=== PATIENT | male | born 1940 | race Asian ===

== ENCOUNTER 2017-03-15 08:56 | Inpatient (IN) | payer MEDICARE, MEDICAID ==
[~2017-03-15] VITALS: Ht 162.6 cm; Wt 64.0 kg
[2017-03-15] MEDS ORDERED: LOSARTAN POTASS50 MG ORAL (09:05)
[2017-03-15] MEDS ORDERED: GLIPIZIDE5 MG ORAL (09:05)
[2017-03-15] MEDS ORDERED: METFORMIN HCL1000 M1 ORAL (09:05)
[2017-03-15] MEDS ORDERED: METOPROLOL TAR100 MG ORAL (09:05)
[2017-03-15] MEDS ORDERED: Sodium Chloride 500ML 500 ML IV ONE (09:08)
--- NOTE | 2017-03-15 09:29 | Emergency Room Report ---
History of Present Illness General Chief Complaint: Dizziness Source: Patient (CHRIS VANCE D.O.) Present Illness HPI Patient presents with complaints of dizziness He reports that when he sits up he feels the symptoms of spinning Patient on Thursday also noted that his blood pressure was elevated this morning his blood pressure was 195 systolic at home With the ongoing positional vertigo Patient was concerning came to the ER He has had a cough for the past week as well denies any chest pain Denies any visual changes he describes a 2/10 head pressure as well Denies any neck pain Denies any focal weakness (CHRIS VANCE D.O.) Allergies: Coded Allergies: No Known Allergies (Unverified , 03/15/17) Patient History Past Medical History: see triage record Pertinent Family History: none Reviewed Nursing Documentation: PMH: Agreed, PSxH: Agreed (CHRIS VANCE D.O.) Nursing Documentation-PMH Hx Hypertension: Yes Hx Diabetes: Yes (CHRIS VANCE D.O.) Review of Systems All Other Systems: negative except mentioned in HPI (CHRIS VANCE D.O.) Physical Exam Vital Signs Date Time Temp Pulse Resp B/P (MAP) Pulse Ox O2 Delivery O2 Flow Rate FiO2 03/15/17 08:57 97.7 68 18 150/82 99 Room Air Sp02 EP Interpretation: reviewed, normal General Appearance: well appearing, no apparent distress Head: normocephalic, atraumatic Eyes: bilateral eye PERRL, bilateral eye EOMI ENT: hearing grossly normal, normal pharynx, TMs + canals normal, uvula midline Neck: full range of motion, supple, no meningismus, no bony tend Respiratory: lungs clear, normal breath sounds, no rhonchi, no respiratory distress, no retraction, no accessory muscle use Cardiovascular #1: normal peripheral pulses, regular rate, rhythm, no edema, no gallop, no JVD, no murmur Gastrointestinal: normal bowel sounds, non tender, soft, no mass, no organomegaly, non-distended, no guarding, no hernia, no pulsatile mass, no rebound Genitourinary: no CVA tenderness Musculoskeletal: normal inspection Neurologic: oriented x3, responsive, 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, motor strength/ tone normal, sensory intact Psychiatric: mood/affect normal Skin: normal color, no rash, warm/dry, palpation normal Lymphatic: normal inspection, no adenopathy (CHRIS VANCE D.O.) Medical Decision Making Diagnostic Impression: Primary Impression: Hyponatremia Additional Impression: Dizziness ER Course Patient is a fairly complex patient with multiple differential to consideration including but not limited to cardiac cardiopulmonary, metabolic, infectious and vascular emergencies Patient has had fairly elevated blood pressure at home at this time appears to be under control Patient's sodium is low Given his symptomatically presentation and evaluation he will require inpatient care Labs Test 03/15/17 09:20 03/15/17 09:37 03/15/17 17:01 03/16/17 06:10 White Blood Count 10.1 K/UL (4.8-10.8) 7.3 K/UL (4.8-10.8) Red Blood Count 4.97 M/UL (4.70-6.10) 4.45 M/UL (4.70-6.10) Hemoglobin 15.4 G/DL (14.2-18.0) 14.4 G/DL (14.2-18.0) Hematocrit 45.5 % (42.0-52.0) 41.0 % (42.0-52.0) Mean Corpuscular Volume 92 FL (80-99) 92 FL (80-99) Mean Corpuscular Hemoglobin 30.9 PG (27.0-31.0) 32.3 PG (27.0-31.0) Mean Corpuscular Hemoglobin Concent 33.7 G/DL (32.0-36.0) 35.1 G/DL (32.0-36.0) Red Cell Distribution Width 10.8 % (11.6-14.8) 10.9 % (11.6-14.8) Platelet Count 185 K/UL (150-450) 159 K/UL (150-450) Mean Platelet Volume 6.3 FL (6.5-10.1) 6.8 FL (6.5-10.1) Neutrophils (%) (Auto) 64.9 % (45.0-75.0) % (45.0-75.0) Lymphocytes (%) (Auto) 27.4 % (20.0-45.0) % (20.0-45.0) Monocytes (%) (Auto) 6.6 % (1.0-10.0) % (1.0-10.0) Eosinophils (%) (Auto) 0.5 % (0.0-3.0) % (0.0-3.0) Basophils (%) (Auto) 0.6 % (0.0-2.0) % (0.0-2.0) Sodium Level 129 MMOL/L (136-145) 130 MMOL/L (136-145) Potassium Level 4.5 MMOL/L (3.5-5.1) 4.3 MMOL/L (3.5-5.1) Chloride Level 95 MMOL/L (98-107) 98 MMOL/L (98-107) Carbon Dioxide Level 27 MMOL/L (21-32) 28 MMOL/L (21-32) Anion Gap 7 mmol/L (5-15) 4 mmol/L (5-15) Blood Urea Nitrogen 12 mg/dL (7-18) 11 mg/dL (7-18) Creatinine 1.3 MG/DL (0.55-1.30) 1.1 MG/DL (0.55-1.30) Estimat Glomerular Filtration Rate mL/min (>60) mL/min (>60) Glucose Level 149 MG/DL (74-106) 96 MG/DL (74-106) Osmolality 276 mOsm/kg (297-317) Uric Acid 3.7 MG/DL (2.6-7.2) Calcium Level 8.6 MG/DL (8.5-10.1) 8.3 MG/DL (8.5-10.1) Total Bilirubin 1.1 MG/DL (0.2-1.0) 1.1 MG/DL (0.2-1.0) Direct Bilirubin 0.3 MG/DL (0.0-0.3) 0.3 MG/DL (0.0-0.3) Aspartate Amino Transf (AST/SGOT) 24 U/L (15-37) 23 U/L (15-37) Alanine Aminotransferase (ALT/SGPT) 31 U/L (12-78) 30 U/L (12-78) Alkaline Phosphatase 71 U/L (46-116) 61 U/L (46-116) Total Creatine Kinase 98 U/L (26-308) Creatine Kinase MB 2.2 NG/ML (0.0-3.6) Creatine Kinase MB Relative Index 2.2 Troponin I 0.000 ng/mL (0.000-0.056) Total Protein 7.0 G/DL (6.4-8.2) 6.5 G/DL (6.4-8.2) Albumin 3.6 G/DL (3.4-5.0) 3.0 G/DL (3.4-5.0) Globulin 3.4 g/dL 3.5 g/dL Albumin/Globulin Ratio 1.1 (1.0-2.7) 0.9 (1.0-2.7) Lipase 115 U/L (73-393) Thyroid Stimulating Hormone (TSH) 4.589 uiU/mL (0.358-3.740) Free Thyroxine 1.08 NG/DL (0.76-1.46) Free Triiodothyronine 2.2 pg/mL (2.3-4.2) Urine Color Pale yellow Rosario Urine Appearance Clear Clear Urine pH 6 (4.5-8.0) 6.5 (4.5-8.0) Urine Specific [place] 1.010 (1.005-1.035) 1.010 (1.005-1.035) Urine Protein 2+ (NEGATIVE) Negative (NEGATIVE) Urine Glucose (UA) Negative (NEGATIVE) Negative (NEGATIVE) Urine Ketones Negative (NEGATIVE) Negative (NEGATIVE) Urine Occult Blood 2+ (NEGATIVE) 1+ (NEGATIVE) Urine Nitrite Negative (NEGATIVE) Negative (NEGATIVE) Urine Bilirubin Negative (NEGATIVE) Negative (NEGATIVE) Urine Urobilinogen Normal MG/DL (0.0-1.0) 1 MG/DL (0.0-1.0) Urine Leukocyte Esterase Negative (NEGATIVE) Negative (NEGATIVE) Urine RBC 2-4 /HPF (0 - 0) 2-4 /HPF (0 - 0) Urine WBC 0-2 /HPF (0 - 0) 0 /HPF (0 - 0) Urine Squamous Epithelial Cells Occasional /LPF Occasional /LPF Urine Bacteria Occasional /HPF (NONE) Few /HPF (NONE) Urine Ictotest Negative Urine Mucus Few /LPF (NONE/OCC) Urine Osmolality 334 mOsm/kg (429-449) Urine Random Sodium 57 MEQ/L (20-110) Differential Total Cells Counted 100 Neutrophils % (Manual) 48 % (45-75) Lymphocytes % (Manual) 44 % (20-45) Monocytes % (Manual) 7 % (1-10) Eosinophils % (Manual) 1 % (0-3) Basophils % (Manual) 0 % (0-2) Band Neutrophils 0 % (0-8) Platelet Estimate Adequate Platelet Morphology Normal Red Blood Cell Morphology Normal Triglycerides Level 39 MG/DL (30-150) Cholesterol Level 89 MG/DL (< 200) LDL Cholesterol 30 mg/dL (<100) HDL Cholesterol 54 MG/DL (40-60) Cholesterol/HDL Ratio 1.6 (3.3-4.4) (CHRIS VANCE D.O.) EKG Diagnostic Results Rate: normal Rhythm: NSR ST Segments: no acute changes (CHRIS VANCE D.O.) Rhythm Strip Diag. Results EP Interpretation: yes Rate: 77 Rhythm: NSR, no PVC's, no ectopy (CHRIS VANCE D.O.) Chest X-Ray Diagnostic Results Chest X-Ray Diagnostic Results : Chest X-Ray Ordered: Yes # of Views/Limited/Complete: 1 View Indication: Chest Pain EP Interpretation: Yes Interpretation: no consolidation, no effusion, no pneumothorax, other - cardiomegaly Impression: No acute disease Electronically Signed by: Chris Vance DO (CHRIS VANCE D.O.) CT/MRI/US Diagnostic Results CT/MRI/US Diagnostic Results : Impression CT headImpression: Ethmoid sinus inflammatory disease. (CHRIS VANCE D.O.) Last Vital Signs Date Time Temp Pulse Resp B/P (MAP) Pulse Ox O2 Delivery O2 Flow Rate FiO2 03/15/17 08:57 97.7 68 18 150/82 99 Room Air Status: improved (CHRIS VANCE D.O.) Status: improved (David Christensen M.D.) Disposition: ADMITTED INPATIENT Condition: Serious CHRIS VANCE D.O. Mar 15, 2017 09:29 David Christensen M.D. Mar 15, 2017 15:20
[2017-03-15] MEDS ORDERED: Meclizine 25mg tab ORAL ONE (09:30)
[2017-03-15 09:36] VITALS: BP 150/82
[2017-03-15 09:50] LABS: BASOPHILS % (AUTO) 0.6 % (0.0-2.0); EOSINOPHILS % (AUTO) 0.5 % (0.0-3.0); LYMPHOCYTES % (AUTO) 27.4 % (20.0-45.0); MEAN CORPUSCULAR HEMOGLOBIN 30.9 PG (27.0-31.0); MEAN CORPUSCULAR HGB CONC 33.7 G/DL (32.0-36.0); MEAN CORPUSCULAR VOLUME 92 FL (80-99); MEAN PLATELET VOLUME 6.3 FL (6.5-10.1); MONOCYTES % (AUTO) 6.6 % (1.0-10.0); NEUTROPHILS % (AUTO) 64.9 % (45.0-75.0); PLATELET COUNT 185 K/UL (150-450); RED BLOOD COUNT 4.97 M/UL (4.70-6.10); RED CELL DISTRIBUTION WIDTH 10.8 % (11.6-14.8); WHITE BLOOD COUNT 10.1 K/UL (4.8-10.8)
[2017-03-15 10:05] LABS: APPEARANCE,URINE CLEAR; KETONES,URINE NEGATIVE (NEGATIVE); LEUKOCYTE ESTERASE ,URINE NEGATIVE (NEGATIVE); NITRITE,URINE NEGATIVE (NEGATIVE); PH,URINE 6 (4.5-8.0); PROTEIN,URINE 2+ (NEGATIVE); UROBILINOGEN,URINE NORMAL MG/DL (0.0-1.0)
[2017-03-15 10:08] LABS: ANION GAP 7 mmol/L (5-15); CALCIUM 8.6 MG/DL (8.5-10.1); CARBON DIOXIDE 27 MMOL/L (21-32); CHLORIDE 95 MMOL/L (98-107); CREATININE 1.3 MG/DL (0.55-1.30); POTASSIUM 4.5 MMOL/L (3.5-5.1); SODIUM 129 MMOL/L (136-145)
[2017-03-15 10:19] LABS: BACTERIA,URINE OCCASIONAL /HPF; SQUAMOUS EPITHELIAL CELL,UR OCCASIONAL /LPF (NONE/OCC); WBC,URINE 0-2 /HPF (0 - 0)
[2017-03-15 10:21] LABS: ALANINE AMINOTRANSFERASE 31 U/L (12-78); ALBUMIN/GLOBULIN RATIO 1.1 (1.0-2.7); ASPARTATE AMINO TRANSFERASE 24 U/L (15-37); CKMB 2.2 NG/ML (0.0-3.6); LIPASE 115 U/L (73-393)
[2017-03-15 10:22] LABS: BILIRUBIN,DIRECT 0.3 MG/DL (0.0-0.3)
[2017-03-15 10:39] VITALS: BP 144/61
--- NOTE | 2017-03-15 10:41 | Diagnostic Imaging Report ---
Indication: Dizziness Technique: Continuous helical CT scanning of the head was performed without intravenous contrast material. Axial and coronal 5 mm sections were generated. Dose: Total Dose Length Product - DLP [address] Dose Index - CTDIvol(s) 70.38 mGy. Automated exposure control was utilized for dose reduction. Comparison:None. Findings: The ventricular system is normal in size and configuration. There is no shift of midline structures. No abnormal extra-axial fluid collections are noted. There is no evidence of intracerebral bleeding. No other abnormal high or low density areas are noted within the brain. There are some inflammatory changes in the ethmoid sinuses. Impression: Ethmoid sinus inflammatory disease. Otherwise normal CT scan of the head without contrast material. The CT scanner at [facility] is accredited by the [employer] and the scans are performed using protocols designed to limit radiation exposure to as low as reasonably achievable to attain images of sufficient resolution adequate for diagnostic evaluation.
--- NOTE | 2017-03-15 11:23 | Diagnostic Imaging Report ---
Indication: Chest pain Technique: XRAY CHEST 1 V Comparison:07/05/2007 Findings: The heart appears slightly enlarged. The lungs are clear. No pleural fluid. The left diaphragm is slightly elevated. Impression: Cardiomegaly. There are slight elevation of left hemidiaphragm.
[2017-03-15 11:34] VITALS: BP 149/67
[2017-03-15 12:00] VITALS: BP 162/70
[2017-03-15] MEDS ORDERED: Mylanta II UD 30ml ORAL PRN (12:30)
[2017-03-15] MEDS ORDERED: LORazepam Inj 2mg/ml 1ml IV PRN (12:30)
[2017-03-15] MEDS ORDERED: Morphine Sulfate 2mg/ml Inj IVP PRN (12:30)
[2017-03-15] MEDS ORDERED: Promethazine/Codeine 5ml UD ORAL PRN (12:30)
[2017-03-15] MEDS: Albuterol/Ipratropium 3ml neb HHN SCH ×2 (13:18→19:00)
[2017-03-15] MEDS ORDERED: TRUSOPT10 ML BOTH EYES (14:19)
[2017-03-15] MEDS ORDERED: SIMVASTATIN20 MG ORAL (14:19)
[2017-03-15] MEDS ORDERED: LUMIGAN2.5 ML BOTH EYES (14:19)
[2017-03-15] MEDS ORDERED: TAMSULOSIN HCL0.4 MG ORAL (14:19)
[2017-03-15 14:53] LABS: FREE T3 2.2 pg/mL (2.3-4.2); THYROID STIMULATING HORMONE 4.589 uiU/mL (0.358-3.740); URIC ACID 3.7 MG/DL (2.6-7.2)
[2017-03-15 16:09] VITALS: BP 137/78
[2017-03-15] MEDS: NovoLOG Insulin Flexpen SUBQ SCH ×2 (16:48→21:00)
--- NOTE | 2017-03-15 17:38 | Consultation ---
History of Present Illness General Date patient seen: Mar 15, 2017 Chief Complaint: Dizziness Referring physician: Dr. Espana Reason for Consultation: inpatient managemetn Present Illness HPI 76 year old male with PMHx of DM, HTN, presented to ER with complaints of dizziness, when he sits up he feels the symptoms of spinning, his blood pressure was elevated this morning his blood pressure was 195 systolic at home. He is admitted for intractable dizziness and uncontrolled HTN. Allergies: Coded Allergies: No Known Allergies (Unverified , 03/15/17) Medication History Scheduled Bimatoprost (Lumigan), 1 DROP BOTH EYES HS, (Reported) Dorzolamide Hcl* (Trusopt*), 1 DROP BOTH EYES TID, (Reported) Glipizide* (Glipizide*), 5 MG ORAL BIDAC, (Reported) Losartan Potassium* (Losartan Potassium*), 50 MG ORAL DAILY, (Reported) Metformin Hcl* (Metformin Hcl*), 1,000 MG ORAL BID, (Reported) Metoprolol Tartrate* (Metoprolol Tartrate*), 100 MG ORAL EVERY 12 HOURS, ( Reported) Simvastatin (Zocor), 20 MG ORAL BEDTIME, (Reported) Tamsulosin Hcl (Tamsulosin Hcl*), 0.4 MG ORAL BEDTIME, (Reported) Patient History Healthcare decision maker N Resuscitation status Full Code Advanced Directive on File Past Medical/Surgical History Past Medical/Surgical History: (1) History of hypertension Review of Systems All Other Systems: negative except mentioned in HPI Physical Exam General Appearance: WD/WN Lines, tubes and drains: peripheral HEENT: normocephalic, atraumatic Neck: non-tender, normal alignment Respiratory/Chest: chest wall non-tender, lungs clear, normal breath sounds Breasts: no masses Cardiovascular/Chest: normal peripheral pulses, regular rhythm Abdomen: normal bowel sounds, non tender Genitourinary/Rectal: normal genital exam, normal rectal exam Extremities: no calf tenderness Skin Exam: normal pigmentation 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 normal Last 24 Hour Vital Signs Date Time Temp Pulse Resp B/P (MAP) Pulse Ox O2 Delivery O2 Flow Rate FiO2 03/15/17 16:09 98.2 63 20 137/78 97 Room Air 03/15/17 13:26 62 20 100 Room Air 21 03/15/17 13:26 21 03/15/17 13:16 75 20 Room Air 21 03/15/17 13:16 75 20 95 Room Air 21 03/15/17 12:00 97.9 70 18 162/70 97 Room Air 03/15/17 11:50 98.9 69 17 149/67 100 Room Air 03/15/17 11:34 69 17 149/67 100 Room Air 03/15/17 10:39 98.9 65 13 144/61 99 Room Air 03/15/17 09:36 68 17 150/82 100 Room Air 03/15/17 08:57 97.7 68 18 150/82 99 Room Air Intake and Output 03/15/17 03/16/17 19:00 07:00 Intake Total 740 ml Balance 740 ml Intake Oral 240 ml IV Total 500 ml Laboratory Tests Test 03/15/17 09:20 03/15/17 09:37 White Blood Count 10.1 K/UL (4.8-10.8) Red Blood Count 4.97 M/UL (4.70-6.10) Hemoglobin 15.4 G/DL (14.2-18.0) Hematocrit 45.5 % (42.0-52.0) Mean Corpuscular Volume 92 FL (80-99) Mean Corpuscular Hemoglobin 30.9 PG (27.0-31.0) Mean Corpuscular Hemoglobin Concent 33.7 G/DL (32.0-36.0) Red Cell Distribution Width 10.8 % (11.6-14.8) L Platelet Count 185 K/UL (150-450) Mean Platelet Volume 6.3 FL (6.5-10.1) L Neutrophils (%) (Auto) 64.9 % (45.0-75.0) Lymphocytes (%) (Auto) 27.4 % (20.0-45.0) Monocytes (%) (Auto) 6.6 % (1.0-10.0) Eosinophils (%) (Auto) 0.5 % (0.0-3.0) Basophils (%) (Auto) 0.6 % (0.0-2.0) Sodium Level 129 MMOL/L (136-145) L Potassium Level 4.5 MMOL/L (3.5-5.1) Chloride Level 95 MMOL/L (98-107) L Carbon Dioxide Level 27 MMOL/L (21-32) Anion Gap 7 mmol/L (5-15) Blood Urea Nitrogen 12 mg/dL (7-18) Creatinine 1.3 MG/DL (0.55-1.30) Estimat Glomerular Filtration Rate mL/min (>60) Glucose Level 149 MG/DL (74-106) H Osmolality 276 mOsm/kg (297-317) L Uric Acid 3.7 MG/DL (2.6-7.2) Calcium Level 8.6 MG/DL (8.5-10.1) Total Bilirubin 1.1 MG/DL (0.2-1.0) H Direct Bilirubin 0.3 MG/DL (0.0-0.3) Aspartate Amino Transf (AST/SGOT) 24 U/L (15-37) Alanine Aminotransferase (ALT/SGPT) 31 U/L (12-78) Alkaline Phosphatase 71 U/L (46-116) Total Creatine Kinase 98 U/L (26-308) Creatine Kinase MB 2.2 NG/ML (0.0-3.6) Creatine Kinase MB Relative Index 2.2 Troponin I 0.000 ng/mL (0.000-0.056) Total Protein 7.0 G/DL (6.4-8.2) Albumin 3.6 G/DL (3.4-5.0) Globulin 3.4 g/dL Albumin/Globulin Ratio 1.1 (1.0-2.7) Lipase 115 U/L (73-393) Thyroid Stimulating Hormone (TSH) 4.589 uiU/mL (0.358-3.740) Free Thyroxine 1.08 NG/DL (0.76-1.46) Free Triiodothyronine 2.2 pg/mL (2.3-4.2) L Cortisol Pending Urine Color Pale yellow Urine Appearance Clear Urine pH 6 (4.5-8.0) Urine Specific [place] 1.010 (1.005-1.035) Urine Protein 2+ (NEGATIVE) H Urine Glucose (UA) Negative (NEGATIVE) Urine Ketones Negative (NEGATIVE) Urine Occult Blood 2+ (NEGATIVE) H Urine Nitrite Negative (NEGATIVE) Urine Bilirubin Negative (NEGATIVE) Urine Urobilinogen Normal MG/DL (0.0-1.0) Urine Leukocyte Esterase Negative (NEGATIVE) Urine RBC 2-4 /HPF (0 - 0) H Urine WBC 0-2 /HPF (0 - 0) Urine Squamous Epithelial Cells Occasional /LPF Urine Bacteria Occasional /HPF (NONE) Height (Feet): 5 Height (Inches): 4.00 Weight (Pounds): 141 Medications Current Medications Medications (Trade) Dose Ordered Sig/Gertrudis Route PRN Reason Start Time Stop Time Status Last Admin Dose Admin Acetaminophen (Tylenol) 650 mg Q4H PRN ORAL fever>100.5 03/15/17 12:30 04/14/17 12:29 Al Hydroxide/Mg Hydroxide (Mylanta II) 30 ml Q6H PRN ORAL dyspepsia 03/15/17 12:30 04/14/17 12:29 Albuterol/ Ipratropium (Albuterol/ Ipratropium) 3 ml Q6HRT HHN 03/15/17 13:00 03/20/17 12:59 03/15/17 13:18 Atorvastatin Calcium (Lipitor) 10 mg QHS ORAL 03/15/17 21:00 04/14/17 20:59 Clonidine HCl (Catapres) 0.1 mg Q4H PRN ORAL For High Blood Pressure 03/15/17 12:30 04/14/17 12:29 Dextrose (Dextrose 50%) STAT PRN IV Hypoglycemia 03/15/17 12:30 04/14/17 12:29 Dorzolamide HCl (Trusopt) 1 drop TID BOTH EYES 03/15/17 18:00 04/14/17 17:59 Heparin Sodium (Porcine) (Heparin 5000 units/ml) 5,000 units EVERY 12 HOURS SUBQ 03/15/17 21:00 04/14/17 20:59 Insulin Aspart (NovoLOG) BEFORE MEALS AND HS SUBQ 03/15/17 16:30 04/14/17 16:29 03/15/17 16:48 Latanoprost (Xalatan) 1 drop QHS BOTH EYES 03/15/17 21:00 04/14/17 20:59 Lorazepam (Ativan 2mg/ml 1ml) 0.5 mg Q4H PRN IV For Anxiety 03/15/17 12:30 03/22/17 12:29 Losartan Potassium (Cozaar) 50 mg DAILY ORAL 03/16/17 09:00 04/15/17 08:59 Metoprolol Tartrate (Lopressor) 100 mg EVERY 12 HOURS ORAL 03/15/17 21:00 04/14/17 20:59 Morphine Sulfate (Morphine Sulfate) 1 mg Q4H PRN IVP For Pain 03/15/17 12:30 03/22/17 12:29 Ondansetron HCl (Zofran) 4 mg Q6H PRN IVP Nausea & Vomiting 03/15/17 12:30 04/14/17 12:29 Polyethylene Glycol (Miralax) 17 gm HSPRN PRN ORAL Constipation 03/15/17 21:00 04/14/17 20:59 Promethazine HCl/ Codeine (Phenergan with Codeine) 5 ml Q4H PRN ORAL For Cough 03/15/17 12:30 04/14/17 12:29 Sodium Chloride 1,000 ml @ 50 mls/hr Q20H IV 03/15/17 16:00 04/14/17 15:59 03/15/17 16:40 Tamsulosin HCl (Flomax) 0.4 mg BEDTIME ORAL 03/15/17 21:00 04/14/17 20:59 Zolpidem Tartrate (Ambien) 5 mg HSPRN PRN ORAL Insomnia 03/15/17 21:00 03/22/17 20:59 Assessment/Plan Problem List: (1) Uncontrolled hypertension ICD Codes: I10 - Essential (primary) hypertension SNOMED: 45094777 (2) Positional vertigo ICD Codes: H81.10 - Benign paroxysmal vertigo, unspecified ear SNOMED: 213766529 (3) Hyponatremia ICD Codes: E87.1 - Hypo-osmolality and hyponatremia SNOMED: 77594908 (4) History of hypertension ICD Codes: Z86.79 - Personal history of other diseases of the circulatory system SNOMED: 326987321 Assessment/Plan symptomatic treatment Neuro evaluation NS monitor and treat BP dvt prophylaxis pt/ot LUISANA SAPP Mar 15, 2017 17:38
[2017-03-15] MEDS: Dorzolamide 2% 10ml Btl BOTH EYES SCH (17:54)
[2017-03-15 18:06] LABS: APPEARANCE,URINE CLEAR; KETONES,URINE NEGATIVE (NEGATIVE); LEUKOCYTE ESTERASE ,URINE NEGATIVE (NEGATIVE); NITRITE,URINE NEGATIVE (NEGATIVE); PH,URINE 6.5 (4.5-8.0); PROTEIN,URINE NEGATIVE (NEGATIVE); UROBILINOGEN,URINE 1 MG/DL (0.0-1.0)
[2017-03-15 18:37] LABS: BACTERIA,URINE FEW /HPF; ICTOTEST NEGATIVE; MUCUS,URINE FEW /LPF (NONE/OCC); SQUAMOUS EPITHELIAL CELL,UR OCCASIONAL /LPF (NONE/OCC); WBC,URINE 0 /HPF (0 - 0)
[2017-03-15 20:00] VITALS: BP 142/75
[2017-03-15] MEDS ORDERED: Zolpidem 5mg tab ORAL PRN (21:00)
[2017-03-15] MEDS ORDERED: Miralax 17gm pkt ORAL PRN (21:00)
[2017-03-15] MEDS: Latanoprost 0.005% Opth 2.5ml Soln BOTH EYES SCH (21:10)
[2017-03-15] MEDS: Tamsulosin 0.4mg cap ORAL SCH (21:10)
[2017-03-15] MEDS: Heparin 5000 units/ml inj SUBQ SCH (21:13)
[2017-03-16] VITALS (7 sets, daily range): BP systolic 129–158; BP diastolic 70–79
[2017-03-16] MEDS: Albuterol/Ipratropium 3ml neb HHN SCH ×4 (01:05→19:00)
[2017-03-16] MEDS: NovoLOG Insulin Flexpen SUBQ SCH ×2 (06:13→11:33)
[2017-03-16 06:46] LABS: MEAN CORPUSCULAR HEMOGLOBIN 32.3 PG (27.0-31.0); MEAN CORPUSCULAR HGB CONC 35.1 G/DL (32.0-36.0); MEAN CORPUSCULAR VOLUME 92 FL (80-99); MEAN PLATELET VOLUME 6.8 FL (6.5-10.1); PLATELET COUNT 159 K/UL (150-450); RED BLOOD COUNT 4.45 M/UL (4.70-6.10); RED CELL DISTRIBUTION WIDTH 10.9 % (11.6-14.8); WHITE BLOOD COUNT 7.3 K/UL (4.8-10.8)
[2017-03-16 07:08] LABS: ALANINE AMINOTRANSFERASE 30 U/L (12-78); ALBUMIN/GLOBULIN RATIO 0.9 (1.0-2.7); ANION GAP 4 mmol/L (5-15); ASPARTATE AMINO TRANSFERASE 23 U/L (15-37); CALCIUM 8.3 MG/DL (8.5-10.1); CARBON DIOXIDE 28 MMOL/L (21-32); CHLORIDE 98 MMOL/L (98-107); CHOLESTEROL 89 MG/DL (< 200); CHOLESTEROL/HDL RATIO 1.6 (3.3-4.4); CREATININE 1.1 MG/DL (0.55-1.30); POTASSIUM 4.3 MMOL/L (3.5-5.1); SODIUM 130 MMOL/L (136-145); TOTAL PROTEIN 6.5 G/DL (6.4-8.2)
[2017-03-16 07:23] LABS: BILIRUBIN,DIRECT 0.3 MG/DL (0.0-0.3)
[2017-03-16] MEDS: Dorzolamide 2% 10ml Btl BOTH EYES SCH ×3 (08:15→17:19)
[2017-03-16] MEDS: Losartan 50mg tab ORAL SCH (08:15)
[2017-03-16] MEDS: Heparin 5000 units/ml inj SUBQ SCH ×2 (08:18→21:00)
[2017-03-16 08:34] LABS: BAND NEUTROPHILS % (MANUAL) 0 % (0-8); BASOPHILS % (MANUAL) 0 % (0-2); EOSINOPHILS % (MANUAL) 1 % (0-3); LYMPHOCYTES % (MANUAL) 44 % (20-45); NEUTROPHILS % (MANUAL) 48 % (45-75); PLATELET ESTIMATE ADEQUATE; PLATELET MORPHOLOGY NORMAL; TOTAL CELLS COUNTED 100
--- NOTE | 2017-03-16 12:20 | Cardiac Electrophysiology PN ---
Subjective Subjective Dictated [id number] Objective Last 24 Hour Vital Signs Date Time Temp Pulse Resp B/P (MAP) Pulse Ox O2 Delivery O2 Flow Rate FiO2 03/16/17 08:15 60 158/77 03/16/17 08:15 158/77 03/16/17 08:15 97.9 60 20 158/77 98 Room Air 03/16/17 07:57 70 18 Room Air 21 03/16/17 07:51 97.7 60 16 158/77 99 03/16/17 07:46 66 16 98 Room Air 21 03/16/17 04:00 Room Air 03/16/17 04:00 97.6 56 16 136/70 99 03/16/17 01:14 56 18 Room Air 21 03/16/17 01:05 54 16 99 Room Air 21 03/16/17 00:00 97.9 55 16 139/72 98 03/16/17 00:00 Room Air 03/15/17 21:10 58 142/75 03/15/17 20:00 98.1 58 16 142/75 98 03/15/17 19:22 63 18 99 Room Air 21 03/15/17 19:12 60 18 Room Air 21 03/15/17 19:12 60 16 97 Room Air 21 03/15/17 16:09 98.2 63 20 137/78 97 Room Air 03/15/17 13:26 62 20 100 Room Air 21 03/15/17 13:26 21 03/15/17 13:16 75 20 Room Air 21 03/15/17 13:16 75 20 95 Room Air 21 Intake and Output 03/16/17 03/17/17 19:00 07:00 Intake Total 340 ml Balance 340 ml Intake Oral 240 ml IV Total 100 ml # Voids 1 # Bowel Movements 1 Laboratory Tests Test 03/15/17 17:01 03/16/17 06:10 Urine Color Rosario Urine Appearance Clear Urine pH 6.5 (4.5-8.0) Urine Specific [place] 1.010 (1.005-1.035) Urine Protein Negative (NEGATIVE) Urine Glucose (UA) Negative (NEGATIVE) Urine Ketones Negative (NEGATIVE) Urine Occult Blood 1+ (NEGATIVE) H Urine Nitrite Negative (NEGATIVE) Urine Bilirubin Negative (NEGATIVE) Urine Ictotest Negative Urine Urobilinogen 1 MG/DL (0.0-1.0) H Urine Leukocyte Esterase Negative (NEGATIVE) Urine RBC 2-4 /HPF (0 - 0) H Urine WBC 0 /HPF (0 - 0) Urine Squamous Epithelial Cells Occasional /LPF Urine Bacteria Few /HPF (NONE) Urine Mucus Few /LPF (NONE/OCC) H Urine Osmolality 334 mOsm/kg (429-449) L Urine Random Sodium 57 MEQ/L (20-110) White Blood Count 7.3 K/UL (4.8-10.8) Red Blood Count 4.45 M/UL (4.70-6.10) L Hemoglobin 14.4 G/DL (14.2-18.0) Hematocrit 41.0 % (42.0-52.0) L Mean Corpuscular Volume 92 FL (80-99) Mean Corpuscular Hemoglobin 32.3 PG (27.0-31.0) H Mean Corpuscular Hemoglobin Concent 35.1 G/DL (32.0-36.0) Red Cell Distribution Width 10.9 % (11.6-14.8) L Platelet Count 159 K/UL (150-450) Mean Platelet Volume 6.8 FL (6.5-10.1) Neutrophils (%) (Auto) % (45.0-75.0) Lymphocytes (%) (Auto) % (20.0-45.0) Monocytes (%) (Auto) % (1.0-10.0) Eosinophils (%) (Auto) % (0.0-3.0) Basophils (%) (Auto) % (0.0-2.0) Differential Total Cells Counted 100 Neutrophils % (Manual) 48 % (45-75) Lymphocytes % (Manual) 44 % (20-45) Monocytes % (Manual) 7 % (1-10) Eosinophils % (Manual) 1 % (0-3) Basophils % (Manual) 0 % (0-2) Band Neutrophils 0 % (0-8) Platelet Estimate Adequate Platelet Morphology Normal Red Blood Cell Morphology Normal Sodium Level 130 MMOL/L (136-145) L Potassium Level 4.3 MMOL/L (3.5-5.1) Chloride Level 98 MMOL/L (98-107) Carbon Dioxide Level 28 MMOL/L (21-32) Anion Gap 4 mmol/L (5-15) L Blood Urea Nitrogen 11 mg/dL (7-18) Creatinine 1.1 MG/DL (0.55-1.30) Estimat Glomerular Filtration Rate mL/min (>60) Glucose Level 96 MG/DL (74-106) Calcium Level 8.3 MG/DL (8.5-10.1) L Total Bilirubin 1.1 MG/DL (0.2-1.0) H Direct Bilirubin 0.3 MG/DL (0.0-0.3) Aspartate Amino Transf (AST/SGOT) 23 U/L (15-37) Alanine Aminotransferase (ALT/SGPT) 30 U/L (12-78) Alkaline Phosphatase 61 U/L (46-116) Total Protein 6.5 G/DL (6.4-8.2) Albumin 3.0 G/DL (3.4-5.0) L Globulin 3.5 g/dL Albumin/Globulin Ratio 0.9 (1.0-2.7) L Triglycerides Level 39 MG/DL (30-150) Cholesterol Level 89 MG/DL (< 200) LDL Cholesterol 30 mg/dL (<100) HDL Cholesterol 54 MG/DL (40-60) Cholesterol/HDL Ratio 1.6 (3.3-4.4) L MARTY BRAVO Mar 16, 2017 12:20
--- NOTE | 2017-03-16 16:12 | Pulmonology Progress Note ---
Assessment/Plan Problems: (1) Uncontrolled hypertension (2) Positional vertigo (3) Hyponatremia (4) History of hypertension Assessment/Plan Na higher slightly bp better pt/ot neuro evaluation pending symptomatic treatment Subjective ROS Limited/Unobtainable: No Constitutional: Reports: no symptoms HEENT: Repors: no symptoms Respiratory: Reports: no symptoms Allergies: Coded Allergies: No Known Allergies (Unverified , 03/15/17) Objective Last 24 Hour Vital Signs Date Time Temp Pulse Resp B/P (MAP) Pulse Ox O2 Delivery O2 Flow Rate FiO2 03/16/17 13:58 72 18 Room Air 21 03/16/17 13:50 63 16 Room Air 21 03/16/17 12:15 97.0 60 21 129/73 97 Room Air 03/16/17 08:15 60 158/77 03/16/17 08:15 158/77 03/16/17 08:15 97.9 60 20 158/77 98 Room Air 03/16/17 07:57 70 18 Room Air 21 03/16/17 07:51 97.7 60 16 158/77 99 03/16/17 07:46 66 16 98 Room Air 21 03/16/17 04:00 Room Air 03/16/17 04:00 97.6 56 16 136/70 99 03/16/17 01:14 56 18 Room Air 21 03/16/17 01:05 54 16 99 Room Air 21 03/16/17 00:00 97.9 55 16 139/72 98 03/16/17 00:00 Room Air 03/15/17 21:10 58 142/75 03/15/17 20:00 98.1 58 16 142/75 98 03/15/17 19:22 63 18 99 Room Air 21 03/15/17 19:12 60 18 Room Air 21 03/15/17 19:12 60 16 97 Room Air 21 Intake and Output 03/16/17 03/17/17 19:00 07:00 Intake Total 780 ml Balance 780 ml Intake Oral 480 ml IV Total 300 ml # Voids 1 # Bowel Movements 1 General Appearance: WD/WN HEENT: normocephalic Respiratory/Chest: chest wall non-tender, lungs clear Cardiovascular: normal peripheral pulses, normal rate Abdomen: normal bowel sounds, soft, non tender Extremities: no cyanosis Neurologic/Psychiatric: telephone interviewer II-XII grossly normal, no motor/sensory deficits Lymphatic: no neck adenopathy Laboratory Tests 03/15/17 17:01: Urine Color Rosario, Urine Appearance Clear, Urine pH 6.5, Urine Specific Dawes 1.010, Urine Protein Negative, Urine Glucose (UA) Negative, Urine Ketones Negative, Urine Occult Blood 1+H, Urine Nitrite Negative, Urine Bilirubin Negative, Urine Ictotest Negative, Urine Urobilinogen 1H, Urine Leukocyte Esterase Negative, Urine RBC 2-4H, Urine WBC 0, Urine Squamous Epithelial Cells Occasional, Urine Bacteria Few, Urine Mucus FewH, Urine Osmolality 334L, Urine Random Sodium 57 03/16/17 06:10: White Blood Count 7.3, Red Blood Count 4.45L, Hemoglobin 14.4, Hematocrit 41.0L , Mean Corpuscular Volume 92, Mean Corpuscular Hemoglobin 32.3H, Mean Corpuscular Hemoglobin Concent 35.1, Red Cell Distribution Width 10.9L, Platelet Count 159, Mean Platelet Volume 6.8, Neutrophils (%) (Auto) , Lymphocytes (%) (Auto) , Monocytes (%) (Auto) , Eosinophils (%) (Auto) , Basophils (%) (Auto) , Differential Total Cells Counted 100, Neutrophils % ( Manual) 48, Lymphocytes % (Manual) 44, Monocytes % (Manual) 7, Eosinophils % ( Manual) 1, Basophils % (Manual) 0, Band Neutrophils 0, Platelet Estimate Adequate, Platelet Morphology Normal, Red Blood Cell Morphology Normal, Sodium Level 130L, Potassium Level 4.3, Chloride Level 98, Carbon Dioxide Level 28, Anion Gap 4L, Blood Urea Nitrogen 11, Creatinine 1.1, Estimat Glomerular Filtration Rate , Glucose Level 96, Calcium Level 8.3L, Total Bilirubin 1.1H, Direct Bilirubin 0.3, Aspartate Amino Transf (AST/SGOT) 23, Alanine Aminotransferase (ALT/SGPT) 30, Alkaline Phosphatase 61, Total Protein 6.5, Albumin 3.0L, Globulin 3.5, Albumin/Globulin Ratio 0.9L, Triglycerides Level 39 , Cholesterol Level 89, LDL Cholesterol 30, HDL Cholesterol 54, Cholesterol/HDL Ratio 1.6L Current Medications Medications (Trade) Dose Ordered Sig/Gertrudis Route PRN Reason Start Time Stop Time Status Last Admin Dose Admin Acetaminophen (Tylenol) 650 mg Q4H PRN ORAL fever>100.5 03/15/17 12:30 04/14/17 12:29 Al Hydroxide/Mg Hydroxide (Mylanta II) 30 ml Q6H PRN ORAL dyspepsia 03/15/17 12:30 04/14/17 12:29 Albuterol/ Ipratropium (Albuterol/ Ipratropium) 3 ml Q6HRT HHN 03/15/17 13:00 03/20/17 12:59 03/16/17 14:31 Atorvastatin Calcium (Lipitor) 10 mg QHS ORAL 03/15/17 21:00 04/14/17 20:59 03/15/17 21:10 Clonidine HCl (Catapres) 0.1 mg Q4H PRN ORAL For High Blood Pressure 03/15/17 12:30 04/14/17 12:29 Dextrose (Dextrose 50%) STAT PRN IV Hypoglycemia 03/15/17 12:30 04/14/17 12:29 Dorzolamide HCl (Trusopt) 1 drop TID BOTH EYES 03/15/17 18:00 04/14/17 17:59 03/16/17 13:30 Glipizide (Glucotrol) 5 mg BIAC ORAL 03/16/17 16:30 04/15/17 16:29 Heparin Sodium (Porcine) (Heparin 5000 units/ml) 5,000 units EVERY 12 HOURS SUBQ 03/15/17 21:00 04/14/17 20:59 03/16/17 08:18 Latanoprost (Xalatan) 1 drop QHS BOTH EYES 03/15/17 21:00 04/14/17 20:59 03/15/17 21:10 Lorazepam (Ativan 2mg/ml 1ml) 0.5 mg Q4H PRN IV For Anxiety 03/15/17 12:30 03/22/17 12:29 Losartan Potassium (Cozaar) 50 mg DAILY ORAL 03/16/17 09:00 04/15/17 08:59 03/16/17 08:15 Metformin HCl (Glucophage) 1,000 mg BIAC ORAL 03/16/17 16:30 04/15/17 16:29 Metoprolol Tartrate (Lopressor) 100 mg EVERY 12 HOURS ORAL 03/15/17 21:00 04/14/17 20:59 03/16/17 08:15 Morphine Sulfate (Morphine Sulfate) 1 mg Q4H PRN IVP For Pain 03/15/17 12:30 03/22/17 12:29 Ondansetron HCl (Zofran) 4 mg Q6H PRN IVP Nausea & Vomiting 03/15/17 12:30 04/14/17 12:29 Polyethylene Glycol (Miralax) 17 gm HSPRN PRN ORAL Constipation 03/15/17 21:00 04/14/17 20:59 Promethazine HCl/ Codeine (Phenergan with Codeine) 5 ml Q4H PRN ORAL For Cough 03/15/17 12:30 04/14/17 12:29 Sodium Chloride 1,000 ml @ 50 mls/hr Q20H IV 03/15/17 16:00 04/14/17 15:59 03/16/17 11:39 Tamsulosin HCl (Flomax) 0.4 mg BEDTIME ORAL 03/15/17 21:00 04/14/17 20:59 03/15/17 21:10 Zolpidem Tartrate (Ambien) 5 mg HSPRN PRN ORAL Insomnia 03/15/17 21:00 03/22/17 20:59 LUISANA SAPP Mar 16, 2017 16:12
[2017-03-16] MEDS: GlipiZIDE 5mg tab ORAL SCH (16:26)
[2017-03-16] MEDS ORDERED: metFORMIN 500mg tab ORAL SCH (16:30)
[2017-03-16] MEDS: metFORMIN 500mg tab ORAL SCH (17:19)
--- NOTE | 2017-03-16 19:08 | Cardiology Report ---
APPROVED REPORT EXAM: Two-dimensional and M-mode echocardiogram with Doppler and color Doppler. INDICATION Syncope M-Mode DIMENSIONS IVSd1.0 (0.7-1.1cm)Left Atrium (MM)2.6 (1.6-4.0cm) LVDd3.2 (3.5-5.6cm)Aortic Root3.1 (2.0-3.7cm) PWd0.6 (0.7-1.1cm)Aortic Cusp Exc.1.7 (1.5-2.0cm) IVSs1.2 cm LVDs2.2 (2.5-4.0cm) PWs0.8 cm Normal left ventricular chamber size, systolic function and wall motion. Left ventricular ejection fraction estimated to be 60 %. No evidence of left ventricular hypertrophy. No evidence of pericardial effusion All other cardiac chamber sizes are within normal limits. Focal aortic valve sclerosis with adequate cusp excursion. Thickened mitral valve leaflets with normal excursion. Mitral annulus and aortic root calcification. Normal pulmonic valve structure. / Pulmonic valve not well visualized. Normal tricuspid valve structure. IVC at normal size with physiologic collapse. A color flow and spectral Doppler study was performed and revealed: No aortic regurgitation. Moderate mitral regurgitation. Mitral diastolic velocities suggest reduced left ventricular relaxation c/w mild LV diastolic dysfunction (Grade I ) Mild tricuspid regurgitation. Tricuspid systolic velocities suggests peak right ventricular systolic pressure of 32 mmHg. No Pulmonic regurgitation present.
--- NOTE | 2017-03-16 19:25 | Cardiology Report ---
APPROVED REPORT EKG Measurement Heart [id number] Normal sinus rhythm Normal ECG
--- NOTE | 2017-03-16 20:45 | History and Physical Report ---
DATE OF ADMISSION: 03/15/2017 TIME SEEN: At 9 a.m. CONSULTANTS: 1. Nita Jhaveri M.D. 2. Thomas Rogers M.D. 3. Prasanna Gardner M.D. CHIEF COMPLAINT: Dizziness, hyponatremia. BRIEF HISTORY: This is a 76-year-old male, who lives at home and presented with increased dizziness and hyponatremia down to 123. Apparently through further history, he has been drinking a lot of water. No passing out. No nausea or vomiting. No diarrhea. Currently calm, resting in bed. No complaint of chest pain or shortness of breath. No nausea, vomiting, or diarrhea. PAST MEDICAL HISTORY: Includes BPH, hypertension, and asthma. PAST SURGICAL HISTORY: Cataract. MEDICATIONS: Include Cozaar, Lopressor, MiraLAX, Ambien, heparin, Flomax, Xalatan, Lipitor, Trusopt, albuterol, Tylenol, morphine, Zofran, lorazepam, Mylanta, Catapres, and Phenergan With Codeine. ALLERGIES: Denies. SOCIAL HISTORY: No smoking. No alcohol. No intravenous drug abuse. FAMILY HISTORY: Noncontributory. PHYSICAL EXAMINATION: GENERAL: Calm in bed, oriented x2, in no acute distress. VITAL SIGNS: Temperature 97, pulse 60, respirations 20, and blood pressure 158/77. CARDIOVASCULAR: No murmur. LUNGS: Distant and clear. ABDOMEN: Bowel sounds positive. Nontender. Nondistended. EXTREMITIES: No cyanosis, clubbing, or edema. NEUROLOGIC: The patient moves all extremities, slightly weak. LABORATORY DATA: Laboratories at this time show CBC is normal. BMP shows sodium now is 130. Albumin 3.0. TSH 4.58, hypothyroid. Urinalysis, 1+ occult blood, otherwise negative. ASSESSMENT: 1. Dizziness. 2. Hyponatremia. 3. Hypothyroid. 4. Benign prostatic hypertrophy. 5. Hypertension. 6. Asthma. 7. Malnutrition. PLAN: 1. Continue pre-admit medications. 2. OT, PT, and dietary evaluation. 3. CBC and BMP in the morning. 4. Troponin q.8 h. x3. 5. EKG. 6. Dr. Jhaveri, Dr. Rogers, Dr. Gardner, and Dr. Maynard to consult. 7. We will continue to follow this patient. Ponce Espana D.O. DR: COSMO JOB#: [id number] CC:
[2017-03-16] MEDS: Tamsulosin 0.4mg cap ORAL SCH (20:52)
[2017-03-16] MEDS: Latanoprost 0.005% Opth 2.5ml Soln BOTH EYES SCH ×2 (20:52→21:00)
--- NOTE | 2017-03-16 21:00 | Consultation ---
DATE OF CONSULTATION: 03/16/2017 CARDIOLOGY CONSULTATION CONSULTING PHYSICIAN: Thomas Rogers M.D. REFERRING PHYSICIAN: Ponce Espana D.O. REASON FOR CONSULTATION: Dizziness in a patient with history of hypertension, diabetes, and hyperlipidemia. HISTORY OF PRESENT ILLNESS: The patient is a 76-year-old gentleman with history of hypertension, diabetes, and hyperlipidemia, who was brought to the emergency room for episodes of dizziness. The patient denies any chest pain or shortness of breath. In the emergency room, blood pressure was 195. The patient was admitted and Cardiology consultation was obtained for further evaluation and management. PAST MEDICAL HISTORY: 1. Hypertension. 2. Diabetes. 3. Hyperlipidemia. SOCIAL HISTORY: He lives at home. Does not smoke or drink alcohol. FAMILY HISTORY: Noncontributory. REVIEW OF SYSTEMS: Performed and was negative other than what was mentioned in the history of present illness. PHYSICAL EXAMINATION: VITAL SIGNS: Blood pressure is 158/77, pulse 60, respirations 18, and temperature 97.7 degrees. HEAD AND NECK: No JVD. LUNGS: Clear. CARDIOVASCULAR: Shows regular S1 and S2 with no gallop or murmur. ABDOMEN: Soft. EXTREMITIES: There is no pitting edema. LABORATORY DATA: White count of 7.2, hemoglobin of 14.4, hematocrit of 41, and platelet count of 159. Sodium 130, potassium is 4.3, BUN of 11, creatinine of 1.1, and glucose of 149. TSH is 4.58. ASSESSMENT AND PLAN: 1. Accelerated hypertension. Continue losartan 50 mg daily and metoprolol 100 mg b.i.d. I will add p.r.n. clonidine to his medical regimen. We will get an echocardiogram to evaluate for left ventricular hypertrophy and left ventricular systolic function. 2. Dizziness. I will get a 12-lead EKG and echocardiogram and orthostatic vitals. 3. Hyperlipidemia, on Lipitor. 4. Diabetes, on insulin. Thank you very much, Dr. Espana, for allowing me to participate in the care of this patient. Please do not hesitate to contact me if you have any questions regarding my evaluation. Thomas Rogers M.D. DR: Josafat JOB#: [id number] CC:
[2017-03-17] VITALS (7 sets, daily range): BP systolic 130–163; BP diastolic 70–88
[2017-03-17] MEDS: Albuterol/Ipratropium 3ml neb HHN SCH ×4 (01:00→19:00)
--- NOTE | 2017-03-17 06:07 | General Progress Note ---
Assessment/Plan Problem List: (1) Hyponatremia ICD Codes: E87.1 - Hypo-osmolality and hyponatremia SNOMED: 56996438 (2) Dizziness ICD Codes: R42 - Dizziness and giddiness SNOMED: 293214112, 910458241 (3) Uncontrolled hypertension ICD Codes: I10 - Essential (primary) hypertension SNOMED: 67903147 (4) Positional vertigo ICD Codes: H81.10 - Benign paroxysmal vertigo, unspecified ear SNOMED: 124776674 (5) History of hypertension ICD Codes: Z86.79 - Personal history of other diseases of the circulatory system SNOMED: 695490980 Assessment/Plan family refused SSI will continue with Metformin - Glipizide regimen Subjective Allergies: Coded Allergies: No Known Allergies (Unverified , 03/15/17) All Systems: reviewed and negative except above Subjective admitted with dizziness and hyponatremia Objective Last 24 Hour Vital Signs Date Time Temp Pulse Resp B/P (MAP) Pulse Ox O2 Delivery O2 Flow Rate FiO2 03/17/17 04:00 98.1 64 17 130/70 97 03/17/17 04:00 97 Room Air 03/17/17 01:02 Room Air 03/17/17 01:02 Room Air 03/17/17 00:00 97.5 66 19 137/75 97 03/17/17 00:00 97 Room Air 03/16/17 20:53 66 154/79 03/16/17 20:21 Room Air 03/16/17 20:20 Room Air 03/16/17 20:00 97.7 66 18 154/79 98 03/16/17 20:00 98 Room Air 03/16/17 16:15 97.5 65 20 150/76 99 Room Air 03/16/17 13:58 72 18 Room Air 21 03/16/17 13:50 63 16 Room Air 21 03/16/17 12:15 97.0 60 21 129/73 97 Room Air 03/16/17 08:15 60 158/77 03/16/17 08:15 158/77 03/16/17 08:15 97.9 60 20 158/77 98 Room Air 03/16/17 07:57 70 18 Room Air 21 03/16/17 07:51 97.7 60 16 158/77 99 03/16/17 07:46 66 16 98 Room Air 21 Laboratory Tests 03/16/17 06:10: White Blood Count 7.3, Red Blood Count 4.45L, Hemoglobin 14.4, Hematocrit 41.0L , Mean Corpuscular Volume 92, Mean Corpuscular Hemoglobin 32.3H, Mean Corpuscular Hemoglobin Concent 35.1, Red Cell Distribution Width 10.9L, Platelet Count 159, Mean Platelet Volume 6.8, Neutrophils (%) (Auto) , Lymphocytes (%) (Auto) , Monocytes (%) (Auto) , Eosinophils (%) (Auto) , Basophils (%) (Auto) , Differential Total Cells Counted 100, Neutrophils % ( Manual) 48, Lymphocytes % (Manual) 44, Monocytes % (Manual) 7, Eosinophils % ( Manual) 1, Basophils % (Manual) 0, Band Neutrophils 0, Platelet Estimate Adequate, Platelet Morphology Normal, Red Blood Cell Morphology Normal, Sodium Level 130L, Potassium Level 4.3, Chloride Level 98, Carbon Dioxide Level 28, Anion Gap 4L, Blood Urea Nitrogen 11, Creatinine 1.1, Estimat Glomerular Filtration Rate , Glucose Level 96, Calcium Level 8.3L, Total Bilirubin 1.1H, Direct Bilirubin 0.3, Aspartate Amino Transf (AST/SGOT) 23, Alanine Aminotransferase (ALT/SGPT) 30, Alkaline Phosphatase 61, Total Protein 6.5, Albumin 3.0L, Globulin 3.5, Albumin/Globulin Ratio 0.9L, Triglycerides Level 39 , Cholesterol Level 89, LDL Cholesterol 30, HDL Cholesterol 54, Cholesterol/HDL Ratio 1.6L Height (Feet): 5 Height (Inches): 4.00 Weight (Pounds): 141 General Appearance: no apparent distress Neck: normal alignment Cardiovascular: normal rate Respiratory/Chest: lungs clear Objective Current Medications Medications (Trade) Dose Ordered Sig/Gertrudis Route PRN Reason Start Time Stop Time Status Last Admin Dose Admin Acetaminophen (Tylenol) 650 mg Q4H PRN ORAL fever>100.5 03/15/17 12:30 04/14/17 12:29 Al Hydroxide/Mg Hydroxide (Mylanta II) 30 ml Q6H PRN ORAL dyspepsia 03/15/17 12:30 04/14/17 12:29 Albuterol/ Ipratropium (Albuterol/ Ipratropium) 3 ml Q6HRT HHN 03/15/17 13:00 03/20/17 12:59 03/16/17 14:31 Atorvastatin Calcium (Lipitor) 10 mg QHS ORAL 03/15/17 21:00 04/14/17 20:59 03/16/17 20:52 Clonidine HCl (Catapres) 0.1 mg Q4H PRN ORAL For High Blood Pressure 03/15/17 12:30 04/14/17 12:29 Dextrose (Dextrose 50%) STAT PRN IV Hypoglycemia 03/15/17 12:30 04/14/17 12:29 Dorzolamide HCl (Trusopt) 1 drop TID BOTH EYES 03/15/17 18:00 04/14/17 17:59 03/16/17 17:19 Glipizide (Glucotrol) 5 mg BIAC ORAL 03/16/17 16:30 04/15/17 16:29 03/16/17 16:26 Heparin Sodium (Porcine) (Heparin 5000 units/ml) 5,000 units EVERY 12 HOURS SUBQ 03/15/17 21:00 04/14/17 20:59 03/16/17 21:00 Latanoprost (Xalatan) 1 drop QHS BOTH EYES 03/15/17 21:00 04/14/17 20:59 03/15/17 21:10 Lorazepam (Ativan 2mg/ml 1ml) 0.5 mg Q4H PRN IV For Anxiety 03/15/17 12:30 03/22/17 12:29 Losartan Potassium (Cozaar) 50 mg DAILY ORAL 03/16/17 09:00 04/15/17 08:59 03/16/17 08:15 Metformin HCl (Glucophage) 1,000 mg Q12HR@0700,1900 ORAL 03/16/17 19:00 04/15/17 18:59 03/16/17 17:19 Metoprolol Tartrate (Lopressor) 100 mg EVERY 12 HOURS ORAL 03/15/17 21:00 04/14/17 20:59 03/16/17 20:53 Morphine Sulfate (Morphine Sulfate) 1 mg Q4H PRN IVP For Pain 03/15/17 12:30 03/22/17 12:29 Ondansetron HCl (Zofran) 4 mg Q6H PRN IVP Nausea & Vomiting 03/15/17 12:30 04/14/17 12:29 Polyethylene Glycol (Miralax) 17 gm HSPRN PRN ORAL Constipation 03/15/17 21:00 04/14/17 20:59 Promethazine HCl/ Codeine (Phenergan with Codeine) 5 ml Q4H PRN ORAL For Cough 03/15/17 12:30 04/14/17 12:29 Sodium Chloride 1,000 ml @ 50 mls/hr Q20H IV 03/15/17 16:00 04/14/17 15:59 03/16/17 11:39 Tamsulosin HCl (Flomax) 0.4 mg BEDTIME ORAL 03/15/17 21:00 04/14/17 20:59 03/16/17 20:52 Zolpidem Tartrate (Ambien) 5 mg HSPRN PRN ORAL Insomnia 03/15/17 21:00 03/22/17 20:59 Item Value Date Time Bedside Blood Glucose 88 mg/dl 03/16/17 2100 Bedside Blood Glucose 183 mg/dl H 03/16/17 1611 Bedside Blood Glucose 147 mg/dl H 03/16/17 1133 JODIE GALE Mar 17, 2017 06:07
[2017-03-17] MEDS: GlipiZIDE 5mg tab ORAL SCH ×2 (06:23→16:43)
[2017-03-17] MEDS: metFORMIN 500mg tab ORAL SCH ×2 (06:23→17:52)
[2017-03-17 06:46] LABS: BASOPHILS % (AUTO) 1.1 % (0.0-2.0); EOSINOPHILS % (AUTO) 2.6 % (0.0-3.0); LYMPHOCYTES % (AUTO) 30.2 % (20.0-45.0); MEAN CORPUSCULAR HEMOGLOBIN 32.9 PG (27.0-31.0); MEAN CORPUSCULAR HGB CONC 35.5 G/DL (32.0-36.0); MEAN CORPUSCULAR VOLUME 92 FL (80-99); MEAN PLATELET VOLUME 6.9 FL (6.5-10.1); MONOCYTES % (AUTO) 8.1 % (1.0-10.0); PLATELET COUNT 161 K/UL (150-450); RED BLOOD COUNT 4.78 M/UL (4.70-6.10); RED CELL DISTRIBUTION WIDTH 11.3 % (11.6-14.8); WHITE BLOOD COUNT 7.8 K/UL (4.8-10.8)
[2017-03-17 07:33] LABS: ANION GAP 6 mmol/L (5-15); CARBON DIOXIDE 29 MMOL/L (21-32); CHLORIDE 102 MMOL/L (98-107); CREATININE 1.2 MG/DL (0.55-1.30); POTASSIUM 4.7 MMOL/L (3.5-5.1); SODIUM 137 MMOL/L (136-145)
[2017-03-17] MEDS: Dorzolamide 2% 10ml Btl BOTH EYES SCH ×2 (08:10→17:52)
[2017-03-17] MEDS: Losartan 50mg tab ORAL SCH ×2 (08:11→17:59)
[2017-03-17] MEDS: Heparin 5000 units/ml inj SUBQ SCH ×2 (08:12→22:01)
[2017-03-17 08:18] LABS: CALCIUM 8.7 MG/DL (8.5-10.1)
--- NOTE | 2017-03-17 14:09 | General Progress Note ---
Assessment/Plan Problem List: (1) History of hypertension ICD Codes: Z86.79 - Personal history of other diseases of the circulatory system SNOMED: 856656869 (2) Positional vertigo ICD Codes: H81.10 - Benign paroxysmal vertigo, unspecified ear SNOMED: 993408221 (3) Uncontrolled hypertension ICD Codes: I10 - Essential (primary) hypertension SNOMED: 51657380 (4) Dizziness ICD Codes: R42 - Dizziness and giddiness SNOMED: 034744468, 891663995 (5) Hyponatremia ICD Codes: E87.1 - Hypo-osmolality and hyponatremia SNOMED: 30792348 Status: stable, progressing, tolerating diet Assessment/Plan ot pt diet cardio neuro neph eval cbc bmp am Subjective Constitutional: Reports: weakness Allergies: Coded Allergies: No Known Allergies (Unverified , 03/15/17) All Systems: reviewed and negative except above Subjective sl weak dizzy Objective Last 24 Hour Vital Signs Date Time Temp Pulse Resp B/P (MAP) Pulse Ox O2 Delivery O2 Flow Rate FiO2 03/17/17 13:48 163/88 03/17/17 13:30 Room Air 03/17/17 13:30 68 16 97 Room Air 03/17/17 12:00 97.5 65 20 163/88 98 03/17/17 08:11 68 150/79 03/17/17 08:11 150/79 03/17/17 08:00 97.3 68 20 150/79 98 03/17/17 07:50 Room Air 03/17/17 07:50 66 16 97 Room Air 03/17/17 04:00 98.1 64 17 130/70 97 03/17/17 04:00 97 Room Air 03/17/17 01:02 Room Air 03/17/17 01:02 Room Air 03/17/17 00:00 97.5 66 19 137/75 97 03/17/17 00:00 97 Room Air 03/16/17 20:53 66 154/79 03/16/17 20:21 Room Air 03/16/17 20:20 Room Air 03/16/17 20:00 97.7 66 18 154/79 98 03/16/17 20:00 98 Room Air 03/16/17 16:15 97.5 65 20 150/76 99 Room Air Intake and Output 03/17/17 03/18/17 19:00 07:00 Intake Total 200 ml Balance 200 ml IV Total 200 ml Laboratory Tests 03/17/17 04:45: White Blood Count 7.8, Red Blood Count 4.78, Hemoglobin 15.7, Hematocrit 44.2, Mean Corpuscular Volume 92, Mean Corpuscular Hemoglobin 32.9H, Mean Corpuscular Hemoglobin Concent 35.5, Red Cell Distribution Width 11.3L, Platelet Count 161, Mean Platelet Volume 6.9, Neutrophils (%) (Auto) 58.0, Lymphocytes (%) (Auto) 30.2, Monocytes (%) (Auto) 8.1, Eosinophils (%) (Auto) 2.6, Basophils (%) (Auto ) 1.1, Sodium Level 137, Potassium Level 4.7, Chloride Level 102, Carbon Dioxide Level 29, Anion Gap 6, Blood Urea Nitrogen 15, Creatinine 1.2, Estimat Glomerular Filtration Rate , Glucose Level 133H, Calcium Level 8.7, Troponin I 0.003, Pro-B-Type Natriuretic Peptide 250H Height (Feet): 5 Height (Inches): 4.00 Weight (Pounds): 141 General Appearance: lethargic EENT: normal ENT inspection Neck: normal alignment Cardiovascular: normal peripheral pulses, normal rate, regular rhythm Respiratory/Chest: chest wall non-tender, lungs clear, normal breath sounds Abdomen: normal bowel sounds, non tender, soft Extremities: normal inspection Edema: no edema noted Arm (L), no edema noted Arm (R), no edema noted Leg (L), no edema noted Leg (R), no edema noted Pedal (L), no edema noted Pedal (R), no edema noted Generalized Neurologic: responsive, motor weakness Skin: normal pigmentation, warm/dry JOHN MARCUS Mar 17, 2017 14:09
--- NOTE | 2017-03-17 16:38 | Cardiac Electrophysiology PN ---
Assessment/Plan Assessment/Plan 1. Accelerated hypertension. Increase losartan to 50 mg bid and continue metoprolol 100 mg b.i.d. Also has p.r.n. clonidine. 2D echocardiogram EF 605 2. Dizziness. Echocardiogram EF 60%. Not orthostatic. 3. Hyperlipidemia, on Lipitor. 4. Diabetes, on insulin. DW RN Subjective Subjective Feeling better but BP still high. Objective Last 24 Hour Vital Signs Date Time Temp Pulse Resp B/P (MAP) Pulse Ox O2 Delivery O2 Flow Rate FiO2 03/17/17 16:00 97.3 64 20 150/71 98 03/17/17 14:45 97.7 68 20 153/78 98 03/17/17 13:48 163/88 03/17/17 13:30 Room Air 03/17/17 13:30 68 16 97 Room Air 03/17/17 12:00 97.5 65 20 163/88 98 03/17/17 08:11 68 150/79 03/17/17 08:11 150/79 03/17/17 08:00 97.3 68 20 150/79 98 03/17/17 07:50 Room Air 03/17/17 07:50 66 16 97 Room Air 03/17/17 04:00 98.1 64 17 130/70 97 03/17/17 04:00 97 Room Air 03/17/17 01:02 Room Air 03/17/17 01:02 Room Air 03/17/17 00:00 97.5 66 19 137/75 97 03/17/17 00:00 97 Room Air 03/16/17 20:53 66 154/79 03/16/17 20:21 Room Air 03/16/17 20:20 Room Air 03/16/17 20:00 97.7 66 18 154/79 98 03/16/17 20:00 98 Room Air Intake and Output 03/17/17 03/18/17 19:00 07:00 Intake Total 300 ml Balance 300 ml IV Total 300 ml Laboratory Tests Test 03/17/17 04:45 White Blood Count 7.8 K/UL (4.8-10.8) Red Blood Count 4.78 M/UL (4.70-6.10) Hemoglobin 15.7 G/DL (14.2-18.0) Hematocrit 44.2 % (42.0-52.0) Mean Corpuscular Volume 92 FL (80-99) Mean Corpuscular Hemoglobin 32.9 PG (27.0-31.0) H Mean Corpuscular Hemoglobin Concent 35.5 G/DL (32.0-36.0) Red Cell Distribution Width 11.3 % (11.6-14.8) L Platelet Count 161 K/UL (150-450) Mean Platelet Volume 6.9 FL (6.5-10.1) Neutrophils (%) (Auto) 58.0 % (45.0-75.0) Lymphocytes (%) (Auto) 30.2 % (20.0-45.0) Monocytes (%) (Auto) 8.1 % (1.0-10.0) Eosinophils (%) (Auto) 2.6 % (0.0-3.0) Basophils (%) (Auto) 1.1 % (0.0-2.0) Sodium Level 137 MMOL/L (136-145) Potassium Level 4.7 MMOL/L (3.5-5.1) Chloride Level 102 MMOL/L (98-107) Carbon Dioxide Level 29 MMOL/L (21-32) Anion Gap 6 mmol/L (5-15) Blood Urea Nitrogen 15 mg/dL (7-18) Creatinine 1.2 MG/DL (0.55-1.30) Estimat Glomerular Filtration Rate mL/min (>60) Glucose Level 133 MG/DL (74-106) H Calcium Level 8.7 MG/DL (8.5-10.1) Troponin I 0.003 ng/mL (0.000-0.056) Pro-B-Type Natriuretic Peptide 250 pg/mL (0-125) H Objective HEAD AND NECK: No JVD. LUNGS: Clear. CARDIOVASCULAR: Shows regular S1 and S2 with no gallop or murmur. ABDOMEN: Soft. EXTREMITIES: There is no pitting edema. MARTY BRAVO Mar 17, 2017 16:38
--- NOTE | 2017-03-17 16:39 | Pulmonology Progress Note ---
Assessment/Plan Problems: (1) Uncontrolled hypertension (2) Positional vertigo (3) Hyponatremia (4) History of hypertension Assessment/Plan Na higher s bp better pt/ot sliding scale diabetic diet dc planning symptomatic treatment Subjective Interval Events: no new complains Allergies: Coded Allergies: No Known Allergies (Unverified , 03/15/17) Objective Last 24 Hour Vital Signs Date Time Temp Pulse Resp B/P (MAP) Pulse Ox O2 Delivery O2 Flow Rate FiO2 03/17/17 16:00 97.3 64 20 150/71 98 03/17/17 14:45 97.7 68 20 153/78 98 03/17/17 13:48 163/88 03/17/17 13:30 Room Air 03/17/17 13:30 68 16 97 Room Air 03/17/17 12:00 97.5 65 20 163/88 98 03/17/17 08:11 68 150/79 03/17/17 08:11 150/79 03/17/17 08:00 97.3 68 20 150/79 98 03/17/17 07:50 Room Air 03/17/17 07:50 66 16 97 Room Air 03/17/17 04:00 98.1 64 17 130/70 97 03/17/17 04:00 97 Room Air 03/17/17 01:02 Room Air 03/17/17 01:02 Room Air 03/17/17 00:00 97.5 66 19 137/75 97 03/17/17 00:00 97 Room Air 03/16/17 20:53 66 154/79 03/16/17 20:21 Room Air 03/16/17 20:20 Room Air 03/16/17 20:00 97.7 66 18 154/79 98 03/16/17 20:00 98 Room Air Intake and Output 03/17/17 03/18/17 19:00 07:00 Intake Total 300 ml Balance 300 ml IV Total 300 ml Objective General Appearance: WD/WN Lines, tubes and drains: peripheral, HEENT: normocephalic, atraumatic Neck: non-tender, normal alignment Respiratory/Chest: chest wall non-tender, lungs clear, normal breath sounds Breasts: no masses Cardiovascular/Chest: normal rate Abdomen: normal bowel sounds Extremities: normal range of motion Laboratory Tests 03/17/17 04:45: White Blood Count 7.8, Red Blood Count 4.78, Hemoglobin 15.7, Hematocrit 44.2, Mean Corpuscular Volume 92, Mean Corpuscular Hemoglobin 32.9H, Mean Corpuscular Hemoglobin Concent 35.5, Red Cell Distribution Width 11.3L, Platelet Count 161, Mean Platelet Volume 6.9, Neutrophils (%) (Auto) 58.0, Lymphocytes (%) (Auto) 30.2, Monocytes (%) (Auto) 8.1, Eosinophils (%) (Auto) 2.6, Basophils (%) (Auto ) 1.1, Sodium Level 137, Potassium Level 4.7, Chloride Level 102, Carbon Dioxide Level 29, Anion Gap 6, Blood Urea Nitrogen 15, Creatinine 1.2, Estimat Glomerular Filtration Rate , Glucose Level 133H, Calcium Level 8.7, Troponin I 0.003, Pro-B-Type Natriuretic Peptide 250H Current Medications Medications (Trade) Dose Ordered Sig/Gertrudis Route PRN Reason Start Time Stop Time Status Last Admin Dose Admin Acetaminophen (Tylenol) 650 mg Q4H PRN ORAL fever>100.5 03/15/17 12:30 04/14/17 12:29 Al Hydroxide/Mg Hydroxide (Mylanta II) 30 ml Q6H PRN ORAL dyspepsia 03/15/17 12:30 04/14/17 12:29 Albuterol/ Ipratropium (Albuterol/ Ipratropium) 3 ml Q6HRT HHN 03/15/17 13:00 03/20/17 12:59 03/16/17 14:31 Atorvastatin Calcium (Lipitor) 10 mg QHS ORAL 03/15/17 21:00 04/14/17 20:59 03/16/17 20:52 Clonidine HCl (Catapres) 0.1 mg Q4H PRN ORAL For High Blood Pressure 03/15/17 12:30 04/14/17 12:29 03/17/17 13:48 Dextrose (Dextrose 50%) STAT PRN IV Hypoglycemia 03/15/17 12:30 04/14/17 12:29 Dorzolamide HCl (Trusopt) 1 drop BID BOTH EYES 03/17/17 18:00 04/14/17 17:59 Glipizide (Glucotrol) 5 mg BIAC ORAL 03/16/17 16:30 04/15/17 16:29 03/17/17 06:23 Heparin Sodium (Porcine) (Heparin 5000 units/ml) 5,000 units EVERY 12 HOURS SUBQ 03/15/17 21:00 04/14/17 20:59 03/17/17 08:12 Latanoprost (Xalatan) 1 drop QHS BOTH EYES 03/15/17 21:00 04/14/17 20:59 03/15/17 21:10 Lorazepam (Ativan 2mg/ml 1ml) 0.5 mg Q4H PRN IV For Anxiety 03/15/17 12:30 03/22/17 12:29 Losartan Potassium (Cozaar) 50 mg BID ORAL 03/17/17 18:00 04/15/17 08:59 UNV Metformin HCl (Glucophage) 1,000 mg Q12HR@0700,1900 ORAL 03/16/17 19:00 04/15/17 18:59 03/17/17 06:23 Metoprolol Tartrate (Lopressor) 100 mg EVERY 12 HOURS ORAL 03/17/17 21:00 04/16/17 20:59 UNV Morphine Sulfate (Morphine Sulfate) 1 mg Q4H PRN IVP For Pain 03/15/17 12:30 03/22/17 12:29 Ondansetron HCl (Zofran) 4 mg Q6H PRN IVP Nausea & Vomiting 03/15/17 12:30 04/14/17 12:29 Polyethylene Glycol (Miralax) 17 gm HSPRN PRN ORAL Constipation 03/15/17 21:00 04/14/17 20:59 Promethazine HCl/ Codeine (Phenergan with Codeine) 5 ml Q4H PRN ORAL For Cough 03/15/17 12:30 04/14/17 12:29 Sodium Chloride 1,000 ml @ 50 mls/hr Q20H IV 03/15/17 16:00 04/14/17 15:59 03/17/17 08:10 Tamsulosin HCl (Flomax) 0.4 mg BEDTIME ORAL 03/15/17 21:00 04/14/17 20:59 03/16/17 20:52 Zolpidem Tartrate (Ambien) 5 mg HSPRN PRN ORAL Insomnia 03/15/17 21:00 03/22/17 20:59 LUISANA SAPP 12, 2017 16:39
[2017-03-17] MEDS: Latanoprost 0.005% Opth 2.5ml Soln BOTH EYES SCH (21:00)
[2017-03-17] MEDS: Tamsulosin 0.4mg cap ORAL SCH (21:58)
[2017-03-18] VITALS: BP_SYST 119; BP_SYST 135; BP_DIAS 64; BP_DIAS 87
[2017-03-18] MEDS: Albuterol/Ipratropium 3ml neb HHN SCH ×4 (01:00→19:35)
[2017-03-18 04:00] VITALS: BP 143/77
[2017-03-18] MEDS: GlipiZIDE 5mg tab ORAL SCH ×2 (06:22→16:03)
[2017-03-18] MEDS: metFORMIN 500mg tab ORAL SCH ×2 (06:22→18:09)
[2017-03-18 07:07] LABS: BASOPHILS % (AUTO) 0.6 % (0.0-2.0); EOSINOPHILS % (AUTO) 2.1 % (0.0-3.0); LYMPHOCYTES % (AUTO) 32.2 % (20.0-45.0); MEAN CORPUSCULAR HEMOGLOBIN 29.9 PG (27.0-31.0); MEAN CORPUSCULAR HGB CONC 32.4 G/DL (32.0-36.0); MEAN CORPUSCULAR VOLUME 93 FL (80-99); MEAN PLATELET VOLUME 5.7 FL (6.5-10.1); MONOCYTES % (AUTO) 7.8 % (1.0-10.0); NEUTROPHILS % (AUTO) 57.3 % (45.0-75.0); PLATELET COUNT 170 K/UL (150-450); RED BLOOD COUNT 4.74 M/UL (4.70-6.10); RED CELL DISTRIBUTION WIDTH 11.3 % (11.6-14.8); WHITE BLOOD COUNT 8.6 K/UL (4.8-10.8)
[2017-03-18 07:38] LABS: ALANINE AMINOTRANSFERASE 34 U/L (12-78); ALBUMIN/GLOBULIN RATIO 0.8 (1.0-2.7); ANION GAP 7 mmol/L (5-15); ASPARTATE AMINO TRANSFERASE 28 U/L (15-37); CALCIUM 8.5 MG/DL (8.5-10.1); CARBON DIOXIDE 27 MMOL/L (21-32); CHLORIDE 103 MMOL/L (98-107); CREATININE 1.2 MG/DL (0.55-1.30); MAGNESIUM 1.6 MG/DL (1.8-2.4); PHOSPHORUS 3.1 MG/DL (2.5-4.9); POTASSIUM 4.4 MMOL/L (3.5-5.1); SODIUM 137 MMOL/L (136-145); TOTAL PROTEIN 6.8 G/DL (6.4-8.2)
[2017-03-18] MEDS: Dorzolamide 2% 10ml Btl BOTH EYES SCH ×2 (08:18→18:03)
[2017-03-18] MEDS: Losartan 50mg tab ORAL SCH ×2 (08:18→18:03)
[2017-03-18] MEDS: Heparin 5000 units/ml inj SUBQ SCH ×2 (08:19→21:11)
[2017-03-18 08:32] VITALS: BP 149/78
[2017-03-18 11:59] VITALS: BP 163/81
--- NOTE | 2017-03-18 12:04 | Cardiac Electrophysiology PN ---
Assessment/Plan Assessment/Plan 1. Accelerated hypertension. Better on losartan 50 mg bid and metoprolol 100 mg b.i.d. Add HCTZ 25 daily Also has p.r.n. clonidine. 2. Dizziness. Echocardiogram EF 60%. Not orthostatic. 3. Hyperlipidemia, on Lipitor. 4. Diabetes, on insulin. SUPRIYA RN Subjective Subjective No chest pain or SOB. Off tele. Objective Last 24 Hour Vital Signs Date Time Temp Pulse Resp B/P (MAP) Pulse Ox O2 Delivery O2 Flow Rate FiO2 03/18/17 11:59 97.1 65 17 163/81 99 Room Air 03/18/17 08:32 98.2 70 16 149/78 98 Room Air 03/18/17 08:18 70 149/78 03/18/17 08:18 149/78 03/18/17 07:24 Room Air 21 03/18/17 07:24 Room Air 21 03/18/17 04:00 97.7 65 20 143/77 98 Room Air 03/18/17 01:55 Room Air 03/18/17 01:55 Room Air 03/18/17 00:00 97.9 66 20 135/87 99 Room Air 03/18/17 00:00 Room Air 03/17/17 21:58 63 155/75 03/17/17 20:00 97.9 63 20 155/75 98 Room Air 03/17/17 19:57 Room Air 03/17/17 19:56 92 15 95 Room Air 03/17/17 17:59 154/78 03/17/17 16:00 97.3 64 20 150/71 98 03/17/17 14:45 97.7 68 20 153/78 98 03/17/17 13:48 163/88 03/17/17 13:30 Room Air 03/17/17 13:30 68 16 97 Room Air Laboratory Tests Test 03/18/17 06:05 White Blood Count 8.6 K/UL (4.8-10.8) Red Blood Count 4.74 M/UL (4.70-6.10) Hemoglobin 14.2 G/DL (14.2-18.0) Hematocrit 43.9 % (42.0-52.0) Mean Corpuscular Volume 93 FL (80-99) Mean Corpuscular Hemoglobin 29.9 PG (27.0-31.0) Mean Corpuscular Hemoglobin Concent 32.4 G/DL (32.0-36.0) Red Cell Distribution Width 11.3 % (11.6-14.8) L Platelet Count 170 K/UL (150-450) Mean Platelet Volume 5.7 FL (6.5-10.1) L Neutrophils (%) (Auto) 57.3 % (45.0-75.0) Lymphocytes (%) (Auto) 32.2 % (20.0-45.0) Monocytes (%) (Auto) 7.8 % (1.0-10.0) Eosinophils (%) (Auto) 2.1 % (0.0-3.0) Basophils (%) (Auto) 0.6 % (0.0-2.0) Sodium Level 137 MMOL/L (136-145) Potassium Level 4.4 MMOL/L (3.5-5.1) Chloride Level 103 MMOL/L (98-107) Carbon Dioxide Level 27 MMOL/L (21-32) Anion Gap 7 mmol/L (5-15) Blood Urea Nitrogen 14 mg/dL (7-18) Creatinine 1.2 MG/DL (0.55-1.30) Estimat Glomerular Filtration Rate mL/min (>60) Glucose Level 105 MG/DL (74-106) Calcium Level 8.5 MG/DL (8.5-10.1) Phosphorus Level 3.1 MG/DL (2.5-4.9) Magnesium Level 1.6 MG/DL (1.8-2.4) L Total Bilirubin 0.6 MG/DL (0.2-1.0) Aspartate Amino Transf (AST/SGOT) 28 U/L (15-37) Alanine Aminotransferase (ALT/SGPT) 34 U/L (12-78) Alkaline Phosphatase 59 U/L (46-116) Total Protein 6.8 G/DL (6.4-8.2) Albumin 3.1 G/DL (3.4-5.0) L Globulin 3.7 g/dL Albumin/Globulin Ratio 0.8 (1.0-2.7) L Objective HEAD AND NECK: No JVD. LUNGS: Clear. CARDIOVASCULAR: Shows regular S1 and S2 with no gallop or murmur. ABDOMEN: Soft. EXTREMITIES: There is no pitting edema. MARTY BRAVO Mar 18, 2017 12:04
--- NOTE | 2017-03-18 14:30 | General Progress Note ---
Assessment/Plan Problem List: (1) History of hypertension ICD Codes: Z86.79 - Personal history of other diseases of the circulatory system SNOMED: 262851979 (2) Positional vertigo ICD Codes: H81.10 - Benign paroxysmal vertigo, unspecified ear SNOMED: 961357282 (3) Uncontrolled hypertension ICD Codes: I10 - Essential (primary) hypertension SNOMED: 47741613 (4) Dizziness ICD Codes: R42 - Dizziness and giddiness SNOMED: 117888549, 995061526 (5) Hyponatremia ICD Codes: E87.1 - Hypo-osmolality and hyponatremia SNOMED: 61673357 Status: stable, progressing, tolerating diet Assessment/Plan ot pt diet cardio neuro neph eval cbc bmp am dc plan w hh Subjective Constitutional: Reports: weakness Allergies: Coded Allergies: No Known Allergies (Unverified , 03/15/17) All Systems: reviewed and negative except above Subjective sl weak dizzy Objective Last 24 Hour Vital Signs Date Time Temp Pulse Resp B/P (MAP) Pulse Ox O2 Delivery O2 Flow Rate FiO2 03/18/17 13:05 Room Air 03/18/17 13:02 Room Air 03/18/17 11:59 97.1 65 17 163/81 99 Room Air 03/18/17 08:32 98.2 70 16 149/78 98 Room Air 03/18/17 08:18 70 149/78 03/18/17 08:18 149/78 03/18/17 07:24 Room Air 03/18/17 07:24 Room Air 03/18/17 04:00 97.7 65 20 143/77 98 Room Air 03/18/17 01:55 Room Air 03/18/17 01:55 Room Air 03/18/17 00:00 97.9 66 20 135/87 99 Room Air 03/18/17 00:00 Room Air 03/17/17 21:58 63 155/75 03/17/17 20:00 97.9 63 20 155/75 98 Room Air 03/17/17 19:57 Room Air 03/17/17 19:56 92 15 95 Room Air 03/17/17 17:59 154/78 03/17/17 16:00 97.3 64 20 150/71 98 03/17/17 14:45 97.7 68 20 153/78 98 Laboratory Tests 03/18/17 06:05: White Blood Count 8.6, Red Blood Count 4.74, Hemoglobin 14.2, Hematocrit 43.9, Mean Corpuscular Volume 93, Mean Corpuscular Hemoglobin 29.9, Mean Corpuscular Hemoglobin Concent 32.4, Red Cell Distribution Width 11.3L, Platelet Count 170, Mean Platelet Volume 5.7L, Neutrophils (%) (Auto) 57.3, Lymphocytes (%) (Auto) 32.2, Monocytes (%) (Auto) 7.8, Eosinophils (%) (Auto) 2.1, Basophils (%) (Auto ) 0.6, Sodium Level 137, Potassium Level 4.4, Chloride Level 103, Carbon Dioxide Level 27, Anion Gap 7, Blood Urea Nitrogen 14, Creatinine 1.2, Estimat Glomerular Filtration Rate , Glucose Level 105, Calcium Level 8.5, Phosphorus Level 3.1, Magnesium Level 1.6L, Total Bilirubin 0.6, Aspartate Amino Transf ( AST/SGOT) 28, Alanine Aminotransferase (ALT/SGPT) 34, Alkaline Phosphatase 59, Total Protein 6.8, Albumin 3.1L, Globulin 3.7, Albumin/Globulin Ratio 0.8L Height (Feet): 5 Height (Inches): 4.00 Weight (Pounds): 141 General Appearance: lethargic EENT: normal ENT inspection Neck: normal alignment Cardiovascular: normal peripheral pulses, normal rate, regular rhythm Respiratory/Chest: chest wall non-tender, lungs clear, normal breath sounds Abdomen: normal bowel sounds, non tender, soft Extremities: normal inspection Edema: no edema noted Arm (L), no edema noted Arm (R), no edema noted Leg (L), no edema noted Leg (R), no edema noted Pedal (L), no edema noted Pedal (R), no edema noted Generalized Neurologic: responsive, motor weakness Skin: normal pigmentation, warm/dry JOHN MARCUS Mar 18, 2017 14:30
[2017-03-18 16:23] VITALS: BP 152/85
--- NOTE | 2017-03-18 17:46 | Pulmonology Progress Note ---
Assessment/Plan Problems: (1) Uncontrolled hypertension (2) Positional vertigo (3) Hyponatremia (4) History of hypertension Assessment/Plan Na higher s bp better pt/ot sliding scale diabetic diet all noted symptomatic treatment Subjective ROS Limited/Unobtainable: No Constitutional: Reports: no symptoms HEENT: Repors: no symptoms Allergies: Coded Allergies: No Known Allergies (Unverified , 03/15/17) Objective Last 24 Hour Vital Signs Date Time Temp Pulse Resp B/P (MAP) Pulse Ox O2 Delivery O2 Flow Rate FiO2 03/18/17 16:23 98.1 64 16 152/85 98 Room Air 03/18/17 13:05 Room Air 21 03/18/17 13:02 Room Air 03/18/17 11:59 97.1 65 17 163/81 99 Room Air 03/18/17 08:32 98.2 70 16 149/78 98 Room Air 03/18/17 08:18 70 149/78 03/18/17 08:18 149/78 03/18/17 07:24 Room Air 03/18/17 07:24 Room Air 03/18/17 04:00 97.7 65 20 143/77 98 Room Air 03/18/17 01:55 Room Air 03/18/17 01:55 Room Air 03/18/17 00:00 97.9 66 20 135/87 99 Room Air 03/18/17 00:00 Room Air 03/17/17 21:58 63 155/75 03/17/17 20:00 97.9 63 20 155/75 98 Room Air 03/17/17 19:57 Room Air 03/17/17 19:56 92 15 95 Room Air 03/17/17 17:59 154/78 Objective General Appearance: WD/WN Lines, tubes and drains: peripheral, HEENT: normocephalic, atraumatic Neck: non-tender, normal alignment Respiratory/Chest: chest wall non-tender, lungs clear, normal breath sounds Breasts: no masses Cardiovascular/Chest: normal rate Abdomen: normal bowel sounds Extremities: normal range of motion Laboratory Tests 03/18/17 06:05: White Blood Count 8.6, Red Blood Count 4.74, Hemoglobin 14.2, Hematocrit 43.9, Mean Corpuscular Volume 93, Mean Corpuscular Hemoglobin 29.9, Mean Corpuscular Hemoglobin Concent 32.4, Red Cell Distribution Width 11.3L, Platelet Count 170, Mean Platelet Volume 5.7L, Neutrophils (%) (Auto) 57.3, Lymphocytes (%) (Auto) 32.2, Monocytes (%) (Auto) 7.8, Eosinophils (%) (Auto) 2.1, Basophils (%) (Auto ) 0.6, Sodium Level 137, Potassium Level 4.4, Chloride Level 103, Carbon Dioxide Level 27, Anion Gap 7, Blood Urea Nitrogen 14, Creatinine 1.2, Estimat Glomerular Filtration Rate , Glucose Level 105, Calcium Level 8.5, Phosphorus Level 3.1, Magnesium Level 1.6L, Total Bilirubin 0.6, Aspartate Amino Transf ( AST/SGOT) 28, Alanine Aminotransferase (ALT/SGPT) 34, Alkaline Phosphatase 59, Total Protein 6.8, Albumin 3.1L, Globulin 3.7, Albumin/Globulin Ratio 0.8L Current Medications Medications (Trade) Dose Ordered Sig/Gertrudis Route PRN Reason Start Time Stop Time Status Last Admin Dose Admin Acetaminophen (Tylenol) 650 mg Q4H PRN ORAL fever>100.5 03/15/17 12:30 04/14/17 12:29 Al Hydroxide/Mg Hydroxide (Mylanta II) 30 ml Q6H PRN ORAL dyspepsia 03/15/17 12:30 04/14/17 12:29 Albuterol/ Ipratropium (Albuterol/ Ipratropium) 3 ml Q6HRT HHN 03/15/17 13:00 03/20/17 12:59 03/16/17 14:31 Atorvastatin Calcium (Lipitor) 10 mg QHS ORAL 03/15/17 21:00 04/14/17 20:59 03/17/17 21:58 Clonidine HCl (Catapres) 0.1 mg Q4H PRN ORAL For High Blood Pressure 03/15/17 12:30 04/14/17 12:29 03/17/17 13:48 Dextrose (Dextrose 50%) STAT PRN IV Hypoglycemia 03/15/17 12:30 04/14/17 12:29 Dorzolamide HCl (Trusopt) 1 drop BID BOTH EYES 03/17/17 18:00 04/14/17 17:59 03/18/17 08:18 Glipizide (Glucotrol) 5 mg BIAC ORAL 03/16/17 16:30 04/15/17 16:29 03/18/17 16:03 Heparin Sodium (Porcine) (Heparin 5000 units/ml) 5,000 units EVERY 12 HOURS SUBQ 03/15/17 21:00 04/14/17 20:59 03/18/17 08:19 Hydrochlorothiazide (Hydrodiuril) 25 mg DAILY ORAL 03/18/17 14:00 04/17/17 13:59 03/18/17 13:28 Lorazepam (Ativan 2mg/ml 1ml) 0.5 mg Q4H PRN IV For Anxiety 03/15/17 12:30 03/22/17 12:29 Losartan Potassium (Cozaar) 50 mg BID ORAL 03/17/17 18:00 04/15/17 08:59 03/18/17 08:18 Metformin HCl (Glucophage) 1,000 mg Q12HR@0700,1900 ORAL 03/16/17 19:00 04/15/17 18:59 03/18/17 06:22 Metoprolol Tartrate (Lopressor) 100 mg EVERY 12 HOURS ORAL 03/17/17 21:00 04/16/17 20:59 03/18/17 08:18 Morphine Sulfate (Morphine Sulfate) 1 mg Q4H PRN IVP For Pain 03/15/17 12:30 03/22/17 12:29 Ondansetron HCl (Zofran) 4 mg Q6H PRN IVP Nausea & Vomiting 03/15/17 12:30 04/14/17 12:29 Patient Own Medication (Patient's Own Med) 1 ea QHS BOTH EYES 03/18/17 21:00 04/17/17 20:59 Polyethylene Glycol (Miralax) 17 gm HSPRN PRN ORAL Constipation 03/15/17 21:00 04/14/17 20:59 Promethazine HCl/ Codeine (Phenergan with Codeine) 5 ml Q4H PRN ORAL For Cough 03/15/17 12:30 04/14/17 12:29 Tamsulosin HCl (Flomax) 0.4 mg BEDTIME ORAL 03/15/17 21:00 04/14/17 20:59 03/17/17 21:58 Zolpidem Tartrate (Ambien) 5 mg HSPRN PRN ORAL Insomnia 03/15/17 21:00 03/22/17 20:59 LUISANA SAPP Mar 18, 2017 17:46
[2017-03-18 20:00] VITALS: BP 166/77
[2017-03-18] MEDS: Tamsulosin 0.4mg cap ORAL SCH (21:07)
[2017-03-19] VITALS: BP 135/65
[2017-03-19] MEDS: Albuterol/Ipratropium 3ml neb HHN SCH ×2 (01:00→07:00)
[2017-03-19 04:00] VITALS: BP 149/73
[2017-03-19] MEDS: GlipiZIDE 5mg tab ORAL SCH (06:41)
[2017-03-19] MEDS: metFORMIN 500mg tab ORAL SCH (06:42)
[2017-03-19 07:38] LABS: BASOPHILS % (AUTO) 0.4 % (0.0-2.0); EOSINOPHILS % (AUTO) 1.5 % (0.0-3.0); LYMPHOCYTES % (AUTO) 31.5 % (20.0-45.0); MEAN CORPUSCULAR HEMOGLOBIN 31.9 PG (27.0-31.0); MEAN CORPUSCULAR HGB CONC 34.5 G/DL (32.0-36.0); MEAN CORPUSCULAR VOLUME 93 FL (80-99); MEAN PLATELET VOLUME 5.6 FL (6.5-10.1); MONOCYTES % (AUTO) 7.5 % (1.0-10.0); NEUTROPHILS % (AUTO) 59.1 % (45.0-75.0); PLATELET COUNT 175 K/UL (150-450); RED BLOOD COUNT 4.72 M/UL (4.70-6.10); RED CELL DISTRIBUTION WIDTH 11.1 % (11.6-14.8); WHITE BLOOD COUNT 9.3 K/UL (4.8-10.8)
[2017-03-19 07:50] LABS: ANION GAP 6 mmol/L (5-15); CALCIUM 9.4 MG/DL (8.5-10.1); CARBON DIOXIDE 30 MMOL/L (21-32); CHLORIDE 100 MMOL/L (98-107); CREATININE 1.3 MG/DL (0.55-1.30); POTASSIUM 4.5 MMOL/L (3.5-5.1); SODIUM 135 MMOL/L (136-145)
[2017-03-19 08:42] VITALS: BP 144/77
[2017-03-19] MEDS: Losartan 50mg tab ORAL SCH (09:05)
[2017-03-19] MEDS: Dorzolamide 2% 10ml Btl BOTH EYES SCH (09:05)
[2017-03-19] MEDS: Heparin 5000 units/ml inj SUBQ SCH (09:07)
--- NOTE | 2017-03-19 11:00 | Cardiac Electrophysiology PN ---
Assessment/Plan Assessment/Plan 1. Accelerated hypertension. Better on losartan 50 mg bid and metoprolol 100 mg b.i.d. and HCTZ 25 daily Also has p.r.n. clonidine. 2. Dizziness. Echocardiogram EF 60%. Not orthostatic. 3. Hyperlipidemia, on Lipitor. 4. Diabetes, on insulin. DW RN Prescriptions given OK to DC Subjective Subjective No chest pain or SOB. BP better now. Objective Last 24 Hour Vital Signs Date Time Temp Pulse Resp B/P (MAP) Pulse Ox O2 Delivery O2 Flow Rate FiO2 03/19/17 09:05 67 144/77 03/19/17 09:05 144/77 03/19/17 08:42 97.7 67 20 144/77 96 03/19/17 08:42 Room Air 03/19/17 07:29 Room Air 03/19/17 07:29 Room Air 03/19/17 04:00 97.3 63 20 149/73 100 Room Air 03/19/17 01:16 Room Air 03/19/17 01:16 Room Air 03/19/17 00:00 97.7 65 19 135/65 98 Room Air 03/18/17 21:08 68 166/77 03/18/17 20:00 97.9 68 18 166/77 98 Room Air 03/18/17 19:35 Room Air 03/18/17 19:35 Room Air 03/18/17 18:03 152/85 03/18/17 16:23 98.1 64 16 152/85 98 Room Air 03/18/17 13:05 Room Air 21 03/18/17 13:02 Room Air 21 03/18/17 11:59 97.1 65 17 163/81 99 Room Air Intake and Output 03/19/17 03/20/17 19:00 07:00 Intake Total 480 ml Balance 480 ml Intake Oral 480 ml Laboratory Tests Test 03/19/17 06:00 White Blood Count 9.3 K/UL (4.8-10.8) Red Blood Count 4.72 M/UL (4.70-6.10) Hemoglobin 15.1 G/DL (14.2-18.0) Hematocrit 43.7 % (42.0-52.0) Mean Corpuscular Volume 93 FL (80-99) Mean Corpuscular Hemoglobin 31.9 PG (27.0-31.0) H Mean Corpuscular Hemoglobin Concent 34.5 G/DL (32.0-36.0) Red Cell Distribution Width 11.1 % (11.6-14.8) L Platelet Count 175 K/UL (150-450) Mean Platelet Volume 5.6 FL (6.5-10.1) L Neutrophils (%) (Auto) 59.1 % (45.0-75.0) Lymphocytes (%) (Auto) 31.5 % (20.0-45.0) Monocytes (%) (Auto) 7.5 % (1.0-10.0) Eosinophils (%) (Auto) 1.5 % (0.0-3.0) Basophils (%) (Auto) 0.4 % (0.0-2.0) Sodium Level 135 MMOL/L (136-145) L Potassium Level 4.5 MMOL/L (3.5-5.1) Chloride Level 100 MMOL/L (98-107) Carbon Dioxide Level 30 MMOL/L (21-32) Anion Gap 6 mmol/L (5-15) Blood Urea Nitrogen 16 mg/dL (7-18) Creatinine 1.3 MG/DL (0.55-1.30) Estimat Glomerular Filtration Rate mL/min (>60) Glucose Level 106 MG/DL (74-106) Calcium Level 9.4 MG/DL (8.5-10.1) Objective HEAD AND NECK: No JVD. LUNGS: Clear. CARDIOVASCULAR: Shows regular S1 and S2 with no gallop or murmur. ABDOMEN: Soft. EXTREMITIES: There is no pitting edema. MARTY BRAVO Mar 19, 2017 11:00
[2017-03-19 12:04] VITALS: BP 143/79
[2017-03-19] MEDS ORDERED: METFORMIN HYD1000 GM MC (13:02)
[2017-03-19] MEDS ORDERED: GLUCOPHAGE500 MG ORAL (13:02)
[2017-03-19] MEDS ORDERED: ATORVASTATIN CA20 MG ORAL ×2 (13:03→13:04)
[2017-03-19] MEDS ORDERED: HYDROCHLOROTHIA50 MG ORAL (13:05)
--- NOTE | 2017-03-19 17:02 | Pulmonology Progress Note ---
Assessment/Plan Problems: (1) Uncontrolled hypertension (2) Positional vertigo (3) Hyponatremia (4) History of hypertension Assessment/Plan feeling better Na higher s bp better pt/ot sliding scale diabetic diet all noted dc planning Subjective ROS Limited/Unobtainable: No Constitutional: Reports: no symptoms HEENT: Repors: no symptoms Respiratory: Reports: no symptoms Allergies: Coded Allergies: No Known Allergies (Unverified , 03/15/17) Objective Last 24 Hour Vital Signs Date Time Temp Pulse Resp B/P (MAP) Pulse Ox O2 Delivery O2 Flow Rate FiO2 03/19/17 12:04 98.0 63 20 143/79 99 Room Air 03/19/17 12:04 Room Air 03/19/17 09:05 67 144/77 03/19/17 09:05 144/77 03/19/17 08:42 97.7 67 20 144/77 96 03/19/17 08:42 Room Air 03/19/17 07:29 Room Air 03/19/17 07:29 Room Air 03/19/17 04:00 97.3 63 20 149/73 100 Room Air 03/19/17 01:16 Room Air 03/19/17 01:16 Room Air 03/19/17 00:00 97.7 65 19 135/65 98 Room Air 03/18/17 21:08 68 166/77 03/18/17 20:00 97.9 68 18 166/77 98 Room Air 03/18/17 19:35 Room Air 03/18/17 19:35 Room Air 03/18/17 18:03 152/85 Intake and Output 03/19/17 03/20/17 19:00 07:00 Intake Total 480 ml Balance 480 ml Intake Oral 480 ml Objective General Appearance: WD/WN Lines, tubes and drains: peripheral, HEENT: normocephalic, atraumatic Neck: non-tender, normal alignment Respiratory/Chest: chest wall non-tender, lungs clear, normal breath sounds Breasts: no masses Cardiovascular/Chest: normal rate Abdomen: normal bowel sounds Extremities: normal range of motion Laboratory Tests 03/19/17 06:00: White Blood Count 9.3, Red Blood Count 4.72, Hemoglobin 15.1, Hematocrit 43.7, Mean Corpuscular Volume 93, Mean Corpuscular Hemoglobin 31.9H, Mean Corpuscular Hemoglobin Concent 34.5, Red Cell Distribution Width 11.1L, Platelet Count 175, Mean Platelet Volume 5.6L, Neutrophils (%) (Auto) 59.1, Lymphocytes (%) (Auto) 31.5, Monocytes (%) (Auto) 7.5, Eosinophils (%) (Auto) 1.5, Basophils (%) (Auto ) 0.4, Sodium Level 135L, Potassium Level 4.5, Chloride Level 100, Carbon Dioxide Level 30, Anion Gap 6, Blood Urea Nitrogen 16, Creatinine 1.3, Estimat Glomerular Filtration Rate , Glucose Level 106, Calcium Level 9.4 LUISANA SAPP Mar 19, 2017 17:02
--- NOTE | 2017-03-20 13:10 | Discharge Summary ---
Discharge Summary Hospital Course Date of Admission Mar 15, 2017 at 11:04 Date of Discharge Mar 19, 2017 at 13:25 Admitting Diagnosis dizziness, symptomatic hyponatremia HPI Ren Boston is a 76 year old male who was admitted on Mar 15, 2017 at 11 :04 for Dizziness,Symptomatic Hyponatremia Hospital Course [id number] Discharge Discharge Disposition Patient was discharged to home Discharge Diagnoses: Stacey Guerra NP Mar 20, 2017 13:10
--- NOTE | 2017-03-20 20:30 | Discharge Summary 2 SIG ---
DATE OF ADMISSION: 03/15/2017 DATE OF DISCHARGE: 03/19/2017 CONSULTANTS: 1. Nita Jhaveri M.D. 2. Thomas Torres M.D. 3. Conor Maynard M.D. BRIEF HOSPITAL COURSE: The patient is a 76-year-old male who lives at home presented with increased dizziness. He has history of hypertension, BPH and asthma. He stated when he sits up he feels symptoms are spinning. He was noted to have elevated blood pressure at home, systolic reading was 195 mmHg. He had ongoing positional vertigo. He then presented to ED. On evaluation, was noted to have low sodium level of 129. Head CT showed ethmoid sinus inflammatory disease. Ventricular system was normal in size and configuration. No shift of midline structures. No evidence of intracranial bleed. Chest x-ray done showed cardiomegaly with slight elevation of the left hemidiaphragm. He was noted to have elevated blood pressure and was then admitted to telemetry for evaluation of dizziness and hyponatremia with hypertension. He was continued on losartan, metoprolol and p.r.n. clonidine. Echocardiogram done showed ejection fraction of 60% with normal left ventricular size, function, and wall motion. Blood glucose were monitored. Family refused insulin sliding scale. He was continued on metformin and glipizide regimen. He was given IV hydration. Urinary sodium was 334. The patient has hypoosmolality hyponatremia. Sodium level eventually improved. Antihypertensives were titrated. Losartan was increased to 50 mg b.i.d. and hydrochlorothiazide 20 mg daily was added. He was continued on metoprolol 100 mg b.i.d. Cholesterol panel was checked, LDL was 30. He was continued on Lipitor 10 mg at bedtime. He was given PT and OT and was eventually discharged home with home health. FINAL DIAGNOSES: 1. Uncontrolled hypertension. 2. Hyponatremia. 3. Positional vertigo. 4. Accelerated hypertension. 5. Hyperlipidemia. 6. Diabetes mellitus. DISPOSITION: The patient was discharged home. DISCHARGE MEDICATIONS: Refer to medication list. DISCHARGE INSTRUCTIONS: Follow up with PMD in a week for blood pressure monitoring. [place] D.O. I have been assigned to dictate discharge summary on this account and I was not involved in the patient's management. Stacey Guerra N.P. DR: MARY JOB#: [id number] CC: SASKIA
== END 2017-03-19 13:25 | disposition home or self-care (01) | DRG 641 ==
LOC: EMR 09:30 → 4E 11:04 → EDBEDREQ 11:18 → 4E 11:56
DX: E87.1 Hypo-osmolality and hyponatremia (principal); E46 Unspecified protein-calorie malnutrition; E11.9 Type 2 diabetes mellitus without complications; I10 Essential (primary) hypertension; E78.5 Hyperlipidemia, unspecified; H81.10 Benign paroxysmal vertigo, unspecified ear; R42 Dizziness and giddiness; N40.0 Benign prostatic hyperplasia without lower urinary tract symptoms; J45.909 Unspecified asthma, uncomplicated; Z79.4 Long term (current) use of insulin; E03.9 Hypothyroidism, unspecified
CPT/HCPCS: 36415; 70450; 71010; 80048; 80053; 80061; 81001; 81003; 82248; 82533; 82550; 82553; 82962; 83690; 83735; 83880; 83930; 83935; 84100; 84300; 84439; 84443; 84481; 84484; 84550; 85007; 85025; 93005; 93306; 94640; 94664; 99285; J1815; J7620

== ENCOUNTER 2018-06-12 10:51 | Inpatient (IN) | payer MEDICARE, MEDICAID ==
[~2018-06-12] VITALS: Ht 162.6 cm; Wt 63.5 kg
[~2018-06-12 10:51] MED LIST: ATORVASTATIN CA20 MG ORAL; GLIPIZIDE5 MG ORAL; GLUCOPHAGE500 MG ORAL; HYDROCHLOROTHIA50 MG ORAL; LOSARTAN POTASS50 MG ORAL; LUMIGAN2.5 ML BOTH EYES; METFORMIN HCL1000 M1 ORAL; METFORMIN HYD1000 GM MC; METOPROLOL TAR100 MG ORAL; SIMVASTATIN20 MG ORAL; TAMSULOSIN HCL0.4 MG ORAL; TRUSOPT10 ML BOTH EYES
[2018-06-12 11:12] VITALS: BP 142/58
--- NOTE | 2018-06-12 11:12 | NUR ---
ED Nurse Note: Pt from home came in due to dizziness x 1 day. Pt also reports coughing and headache since thursday. Pt is also diabetic and the son states they havent been checking the sugar. Pt is AAO x4, ambulates and follows commands. No respiratory distress. Skin is warm to touch. VSS.
[2018-06-12 11:25] VITALS: BP_SYST 109; BP_SYST 121; BP_SYST 142; BP_DIAS 52; BP_DIAS 58; BP_DIAS 61
--- NOTE | 2018-06-12 11:54 | NUR ---
ED Nurse Note: Blood, urine and flu swab sent.
[2018-06-12 12:06] LABS: BASOPHILS % (AUTO) 0.4 % (0.0-2.0); EOSINOPHILS % (AUTO) 0.4 % (0.0-3.0); HEMATOCRIT 45.2 % (42.0-52.0); HEMOGLOBIN 15.5 G/DL (14.2-18.0); LYMPHOCYTES % (AUTO) 21.1 % (20.0-45.0); MEAN CORPUSCULAR VOLUME 89 FL (80-99); MONOCYTES % (AUTO) 6.5 % (1.0-10.0); NEUTROPHILS % (AUTO) 71.6 % (45.0-75.0); PLATELET COUNT 256 K/UL (150-450); RED BLOOD COUNT 5.06 M/UL (4.70-6.10); RED CELL DISTRIBUTION WIDTH 10.5 % (11.6-14.8); WHITE BLOOD COUNT 9.4 K/UL (4.8-10.8)
[2018-06-12 12:10] LABS: ANION GAP 8 mmol/L (5-15); APPEARANCE,URINE CLEAR; BILIRUBIN, URINE NEGATIVE (NEGATIVE); BLOOD UREA NITROGEN 13 mg/dL (7-18); CALCIUM 9.4 MG/DL (8.5-10.1); CARBON DIOXIDE 30 MMOL/L (21-32); CHLORIDE 88 MMOL/L (98-107); CREATININE 1.4 MG/DL (0.55-1.30); GLUCOSE, URINE (UA) NEGATIVE (NEGATIVE); KETONES,URINE 1+ (NEGATIVE); LEUKOCYTE ESTERASE ,URINE 1+ (NEGATIVE); NITRITE,URINE NEGATIVE (NEGATIVE); PH,URINE 6 (4.5-8.0); POTASSIUM 3.7 MMOL/L (3.5-5.1); PROTEIN,URINE 2+ (NEGATIVE); SODIUM 126 MMOL/L (136-145); UROBILINOGEN,URINE 1 MG/DL (0.0-1.0)
[2018-06-12 12:23] LABS: ALANINE AMINOTRANSFERASE 42 U/L (12-78); ALBUMIN 3.8 G/DL (3.4-5.0); ALBUMIN/GLOBULIN RATIO 0.9 (1.0-2.7); ALKALINE PHOSPHATASE 83 U/L (46-116); ASPARTATE AMINO TRANSFERASE 25 U/L (15-37); BILIRUBIN,DIRECT 0.3 MG/DL (0.0-0.3); BILIRUBIN,TOTAL 1.1 MG/DL (0.2-1.0); CKMB 1.7 NG/ML (0.0-3.6); CREATINE KINASE 100 U/L (26-308); PHOSPHORUS 3.1 MG/DL (2.5-4.9)
[2018-06-12 12:24] LABS: COLOR,URINE YELLOW
[2018-06-12 13:10] VITALS: BP 130/68
--- NOTE | 2018-06-12 13:57 | NUR ---
ED Nurse Note: Pt resting on bed with no distres. VSS. Son still at the bed side.
[2018-06-12 14:54] VITALS: BP 127/56
--- NOTE | 2018-06-12 14:54 | NUR ---
ED Nurse Note: Report given to Yeni Marks of telemetry unit.
--- NOTE | 2018-06-12 14:55 | NUR ---
ED Nurse Note: Charge nurse okay to bring the pt to telemetry without admission packet at this time.
--- NOTE | 2018-06-12 15:05 | NUR ---
NURSE NOTES: Received phone/bedside report from Cherelle BLANCHARD from ED. Pt. a/o x 4. No sign of distress. Denies pain at present. Pt. ambulates going to restroom with steady gait. Reviewed home medication with family and pt. Family at bedside for support.
[2018-06-12 15:20] VITALS: BP 141/72
[2018-06-12] MEDS ORDERED: Morphine Sulfate 2mg/ml Inj(IV/IM USE ONLY) IVP PRN (15:45)
[2018-06-12] MEDS ORDERED: Zolpidem 5mg tab ORAL PRN (15:45)
[2018-06-12] MEDS ORDERED: LORazepam Inj 2mg/ml 1ml IV PRN (15:45)
[2018-06-12] MEDS ORDERED: Miralax 17gm pkt ORAL PRN (15:45)
[2018-06-12] MEDS ORDERED: Mylanta II UD 30ml ORAL PRN (15:45)
--- NOTE | 2018-06-12 15:55 | Emergency Room Report ---
History of Present Illness General Chief Complaint: Dizziness Source: Patient, Medical Record Present Illness HPI This is a 78-year-old male brought in by family member after increased generalized weakness. Patient was noted to have increased difficulty with ambulation and lightheaded feeling. He had been noted to be feeling increasingly weak all over. Patient had previously been having some sore throat as well as nonproductive cough. He had prior history of diabetes but was unable to check his blood sugar. Patient denies any abdominal pain. Patient had similar symptoms when he had hyponatremia in the past. Patient denies any fever. Allergies: Coded Allergies: No Known Allergies (Unverified , 03/15/17) Patient History Past Medical History: see triage record Reviewed Nursing Documentation: PMH: Agreed; PSxH: Agreed Nursing Documentation-PMH Hx Cardiac Problems: Yes Hx Hypertension: Yes Hx Diabetes: Yes Hx Cancer: No Hx Gastrointestinal Problems: Yes Hx Neurological Problems: No Review of Systems All Other Systems: negative except mentioned in HPI Physical Exam Vital Signs Date Time Temp Pulse Resp B/P (MAP) Pulse Ox O2 Delivery O2 Flow Rate FiO2 06/12/18 11:02 97.9 68 17 107/62 94 Room Air Sp02 EP Interpretation: reviewed, normal General Appearance: normal inspection, well appearing, no apparent distress, alert, Chronically Ill Head: atraumatic ENT: normal ENT inspection, hearing grossly normal, normal voice Neck: normal inspection, full range of motion, supple, no bony tend Respiratory: normal inspection, lungs clear, normal breath sounds, no respiratory distress, no retraction, no wheezing Cardiovascular #1: regular rate, rhythm, no edema Gastrointestinal: normal inspection, normal bowel sounds, non tender, soft, no guarding, no hernia Genitourinary: no CVA tenderness Musculoskeletal: normal inspection, back normal, normal range of motion Neurologic: normal inspection, alert, oriented x3, responsive, meter calibrator III-XII nml as tested, speech normal Psychiatric: normal inspection, judgement/insight normal, depressed affect Skin: normal inspection, normal color, no rash Medical Decision Making Diagnostic Impression: Primary Impression: Hyponatremia Additional Impressions: Lactic acidosis Diabetes ER Course Patient presented for increased dizziness. Differential diagnosis include was not limited to hyponatremia, dehydration, sepsis, hyperglycemia among others. Because of complexity of patient's case laboratory testing and imaging studies were ordered. Patient was noted to have normal mental status. Patient appears to have a nonfocal neurologic exam. Laboratory testing was notable for some moderate hyponatremia as well as elevated lactic acid.. Patient was started on IV fluids. He was noted to be diabetic and sugar was moderately elevated. Repeat lactic acid level after IV fluid showed improvement in lactic acid level. Lactic acidosis may be related to patient's use of metformin.Dr. Ponce Espana was contacted for inpatient management due to previous admission. Labs Test 06/12/18 11:30 06/12/18 13:00 White Blood Count 9.4 K/UL (4.8-10.8) Red Blood Count 5.06 M/UL (4.70-6.10) Hemoglobin 15.5 G/DL (14.2-18.0) Hematocrit 45.2 % (42.0-52.0) Mean Corpuscular Volume 89 FL (80-99) Mean Corpuscular Hemoglobin 30.6 PG (27.0-31.0) Mean Corpuscular Hemoglobin Concent 34.3 G/DL (32.0-36.0) Red Cell Distribution Width 10.5 % (11.6-14.8) Platelet Count 256 K/UL (150-450) Mean Platelet Volume 6.1 FL (6.5-10.1) Neutrophils (%) (Auto) 71.6 % (45.0-75.0) Lymphocytes (%) (Auto) 21.1 % (20.0-45.0) Monocytes (%) (Auto) 6.5 % (1.0-10.0) Eosinophils (%) (Auto) 0.4 % (0.0-3.0) Basophils (%) (Auto) 0.4 % (0.0-2.0) Urine Color Yellow Urine Appearance Clear Urine pH 6 (4.5-8.0) Urine Specific [place] 1.015 (1.005-1.035) Urine Protein 2+ (NEGATIVE) Urine Glucose (UA) Negative (NEGATIVE) Urine Ketones 1+ (NEGATIVE) Urine Blood 1+ (NEGATIVE) Urine Nitrite Negative (NEGATIVE) Urine Bilirubin Negative (NEGATIVE) Urine Urobilinogen 1 MG/DL (0.0-1.0) Urine Leukocyte Esterase 1+ (NEGATIVE) Urine RBC 0-2 /HPF (0 - 0) Urine WBC 0-2 /HPF (0 - 0) Urine Squamous Epithelial Cells None /LPF (NONE/OCC) Urine Bacteria Occasional /HPF (NONE) Sodium Level 126 MMOL/L (136-145) Potassium Level 3.7 MMOL/L (3.5-5.1) Chloride Level 88 MMOL/L (98-107) Carbon Dioxide Level 30 MMOL/L (21-32) Anion Gap 8 mmol/L (5-15) Blood Urea Nitrogen 13 mg/dL (7-18) Creatinine 1.4 MG/DL (0.55-1.30) Estimat Glomerular Filtration Rate mL/min (>60) Glucose Level 223 MG/DL (74-106) Calcium Level 9.4 MG/DL (8.5-10.1) Phosphorus Level 3.1 MG/DL (2.5-4.9) Magnesium Level 1.1 MG/DL (1.8-2.4) Total Bilirubin 1.1 MG/DL (0.2-1.0) Direct Bilirubin 0.3 MG/DL (0.0-0.3) Aspartate Amino Transf (AST/SGOT) 25 U/L (15-37) Alanine Aminotransferase (ALT/SGPT) 42 U/L (12-78) Alkaline Phosphatase 83 U/L (46-116) Total Creatine Kinase 100 U/L (26-308) Creatine Kinase MB 1.7 NG/ML (0.0-3.6) Creatine Kinase MB Relative Index 1.7 Troponin I 0.001 ng/mL (0.000-0.056) Pro-B-Type Natriuretic Peptide 82 pg/mL (0-125) Total Protein 8.2 G/DL (6.4-8.2) Albumin 3.8 G/DL (3.4-5.0) Globulin 4.4 g/dL Albumin/Globulin Ratio 0.9 (1.0-2.7) Lipase 130 U/L (73-393) Lactic Acid Level 3.10 mmol/L (0.66-2.22) EKG Diagnostic Results Rate: normal Rhythm: NSR ST Segments: no acute changes Last Vital Signs Date Time Temp Pulse Resp B/P (MAP) Pulse Ox O2 Delivery O2 Flow Rate FiO2 06/12/18 15:36 Room Air 06/12/18 14:57 97.8 66 18 127/56 97 Status: improved Disposition: ADMITTED INPATIENT Condition: Stable Referrals: NON PHYSICIAN (PCP) Wes Callahan MD Jun 12, 2018 15:55
[2018-06-12] MEDS: NovoLOG Insulin Flexpen SUBQ SCH ×2 (16:30→21:00)
[2018-06-12 17:26] LABS: APPEARANCE,URINE CLEAR; BILIRUBIN, URINE NEGATIVE (NEGATIVE); COLOR,URINE PALE YELLOW; GLUCOSE, URINE (UA) NEGATIVE (NEGATIVE); KETONES,URINE NEGATIVE (NEGATIVE); LEUKOCYTE ESTERASE ,URINE NEGATIVE (NEGATIVE); NITRITE,URINE NEGATIVE (NEGATIVE); PH,URINE 6 (4.5-8.0); PROTEIN,URINE NEGATIVE (NEGATIVE); UROBILINOGEN,URINE NORMAL MG/DL (0.0-1.0)
[2018-06-12] MEDS: Dorzolamide 2% 10ml Btl BOTH EYES SCH (18:17)
--- NOTE | 2018-06-12 19:42 | NUR ---
HAND-OFF: Report given to Gayle Herbert RN. Pt. remain stable. Endorsed to call Dr. Jahveri per family request to have pt. to have IVF.
--- NOTE | 2018-06-12 19:50 | NUR ---
NURSE NOTES: Received pt from Lyle RN. Pt awake, alert, and talkative. Bed in lowest position. Call light within reach. Will continue to monitor.
[2018-06-12 20:00] VITALS: BP 123/60
--- NOTE | 2018-06-12 20:39 | NUR ---
NURSE NOTES: Called and left a message with Dr. Espana regarding pts family request for IV fluids d/t pts high lactic acid of 3.10. Awaiting call back.
[2018-06-12] MEDS ORDERED: Theophylline ER 100mg ORAL SCH (21:00)
[2018-06-12] MEDS: Tamsulosin 0.4mg cap ORAL SCH (21:00)
[2018-06-12] MEDS: Heparin 5000 units/ml inj SUBQ SCH (21:01)
[2018-06-13] VITALS: BP 110/51
[2018-06-13 04:00] VITALS: BP 122/54
[2018-06-13] MEDS: NovoLOG Insulin Flexpen SUBQ SCH ×4 (06:30→21:26)
--- NOTE | 2018-06-13 07:05 | NUR ---
NURSE NOTES: Received report from SANTO Araujo. Patient is AAOx4. Patient is breathing even and unlabored and denies pain. Patient has heart monitor on. Patient bed is in lowest position, bed locked, 2 side rails up, and call light within reach Patient is resting in bed awaiting breakfast. Will follow up plan of care.
--- NOTE | 2018-06-13 07:22 | NUR ---
HAND-OFF: Report given to SANTO Bryant. Pt stable.
[2018-06-13 07:53] LABS: HEMATOCRIT 40.2 % (42.0-52.0); HEMOGLOBIN 13.9 G/DL (14.2-18.0); MEAN CORPUSCULAR VOLUME 89 FL (80-99); PLATELET COUNT 238 K/UL (150-450); RED BLOOD COUNT 4.53 M/UL (4.70-6.10); RED CELL DISTRIBUTION WIDTH 10.6 % (11.6-14.8); WHITE BLOOD COUNT 8.3 K/UL (4.8-10.8)
[2018-06-13 08:00] VITALS: BP 131/66
--- NOTE | 2018-06-13 08:01 | Consultation ---
History of Present Illness General Date patient seen: Jun 13, 2018 Time patient seen: 07:00 Chief Complaint: Dizziness Referring physician: dr Espana Reason for Consultation: inpatient management Present Illness HPI 78 years old male with PMH of hypertension, diabetes, status post right eye cataract surgery, presented to emergency department accompanied by family member due to increased generalized weakness. Patient reported lightheadedness and difficulty with ambulation. Patient was getting increasingly weak all over the last week. Patient also had nonproductive cough and sore throat previously. Patient unable to check blood sugar. He denied abdominal pain. He denied fevers and chills. Patient had similar symptoms when he had hyponatremia in the past. Patient on diuretic at home/HCTZ. Upon evaluation vital signs were stable. Laboratory workup revealed no leukocytosis, stable hemoglobin and hematocrit. Urinalysis revealed +2 protein, +1 blood, +1 leukocyte esterase, occasional bacteria. Sodium 126, chloride 88. BUN 13 creatinine 1.4. Glucose 223. Magnesium 1.1 Stable AST and ALT. CK 100 Troponin negative Pro BNP 82 Lactic acid 3.1 Patient was admitted for further management Allergies: Coded Allergies: No Known Allergies (Unverified , 03/15/17) Medication History Scheduled Atorvastatin Calcium* (Atorvastatin Calcium*), 10 MG ORAL BEDTIME, (Reported) Atorvastatin Calcium* (Atorvastatin Calcium*), 10 MG ORAL BEDTIME, (Reported) Bimatoprost (Lumigan), 1 DROP BOTH EYES HS, (Reported) Dorzolamide Hcl* (Trusopt*), 1 DROP BOTH EYES TID, (Reported) Glipizide* (Glipizide*), 5 MG ORAL BIDAC, (Reported) Hydrochlorothiazide* (Hydrochlorothiazide*), 25 MG ORAL DAILY, (Reported) Losartan Potassium* (Losartan Potassium*), 50 MG ORAL DAILY, (Reported) Metformin Hcl (Metformin Hydrochloride), 500 GM MC EVERY 12 HOURS, (Reported) Metformin Hcl* (Metformin Hcl*), 1,000 MG ORAL BID, (Reported) Metformin Hcl* (Glucophage*), 500 MG ORAL TWICE A DAY, (Reported) Metoprolol Tartrate* (Metoprolol Tartrate*), 100 MG ORAL EVERY 12 HOURS, ( Reported) Simvastatin (Zocor), 20 MG ORAL BEDTIME, (Reported) Tamsulosin Hcl (Tamsulosin Hcl*), 0.4 MG ORAL BEDTIME, (Reported) Patient History History Provided By: Patient, Family Member Healthcare decision maker N Resuscitation status Full Code Advanced Directive on File Past Medical/Surgical History Past Medical/Surgical History: (1) Diabetes (2) History of hypertension Review of Systems Constitutional: Reports: weakness Eye: Reports: other - bilateral cataracts ENT: Reports: no symptoms Respiratory: Reports: no symptoms Cardiovascular: Reports: other - HTN Gastrointestinal: Reports: no symptoms Genitourinary: Reports: no symptoms Musculoskeletal: Reports: no symptoms Skin: Reports: no symptoms Neurological: Reports: no symptoms Endocrine: Reports: other - diabetes Hematologic/Lymphatic: Reports: no symptoms Physical Exam General Appearance: no apparent distress, alert - awake, responsive Lines, tubes and drains: peripheral HEENT: normocephalic, atraumatic, anicteric, mucous membranes moist Neck: non-tender, supple Respiratory/Chest: lungs clear, no respiratory distress, no accessory muscle use Cardiovascular/Chest: normal rate, regular rhythm, no JVD Abdomen: normal bowel sounds, non tender, soft Extremities: no calf tenderness Skin Exam: warm/dry Neurologic: alert, oriented x 3, responsive Musculoskeletal: normal muscle bulk Last 24 Hour Vital Signs Date Time Temp Pulse Resp B/P (MAP) Pulse Ox O2 Delivery O2 Flow Rate FiO2 06/13/18 07:33 76 16 97 Room Air 21 06/13/18 07:33 72 16 97 Room Air 21 06/13/18 04:00 63 06/13/18 04:00 98.8 67 17 122/54 (76) 95 06/13/18 03:28 Room Air 21 06/13/18 03:28 Room Air 21 06/13/18 00:00 59 06/13/18 00:00 98.8 66 17 110/51 (70) 98 06/12/18 23:25 74 18 98 Room Air 21 06/12/18 23:24 73 18 98 Room Air 21 06/12/18 21:00 Room Air 06/12/18 20:00 98.4 67 17 123/60 (81) 95 06/12/18 20:00 66 06/12/18 19:50 77 18 99 Room Air 21 06/12/18 19:50 79 18 99 Room Air 21 06/12/18 17:22 66 06/12/18 15:36 Room Air 06/12/18 15:20 97.7 67 18 141/72 (95) 95 06/12/18 14:57 97.8 66 18 127/56 97 Room Air 06/12/18 14:54 97.8 66 18 127/56 97 Room Air 06/12/18 13:10 97.5 75 18 130/68 97 Room Air 06/12/18 11:25 66 142/58 68 121/61 69 109/52 06/12/18 11:12 66 17 Room Air 06/12/18 11:12 97.9 66 17 142/58 95 Room Air 06/12/18 11:02 97.9 68 17 107/62 94 Room Air Intake and Output 06/12/18 06/13/18 18:59 06:59 Intake Total 500 ml Balance 500 ml Intake IV Total 500 ml # Voids 1 Laboratory Tests Test 06/12/18 11:30 06/12/18 13:00 06/12/18 16:25 06/12/18 17:05 White Blood Count 9.4 K/UL (4.8-10.8) Red Blood Count 5.06 M/UL (4.70-6.10) Hemoglobin 15.5 G/DL (14.2-18.0) Hematocrit 45.2 % (42.0-52.0) Mean Corpuscular Volume 89 FL (80-99) Mean Corpuscular Hemoglobin 30.6 PG (27.0-31.0) Mean Corpuscular Hemoglobin Concent 34.3 G/DL (32.0-36.0) Red Cell Distribution Width 10.5 % (11.6-14.8) L Platelet Count 256 K/UL (150-450) Mean Platelet Volume 6.1 FL (6.5-10.1) L Neutrophils (%) (Auto) 71.6 % (45.0-75.0) Lymphocytes (%) (Auto) 21.1 % (20.0-45.0) Monocytes (%) (Auto) 6.5 % (1.0-10.0) Eosinophils (%) (Auto) 0.4 % (0.0-3.0) Basophils (%) (Auto) 0.4 % (0.0-2.0) Urine Color Yellow Pale yellow Urine Appearance Clear Clear Urine pH 6 (4.5-8.0) 6 (4.5-8.0) Urine Specific [place] 1.015 (1.005-1.035) 1.010 (1.005-1.035) Urine Protein 2+ (NEGATIVE) H Negative (NEGATIVE) Urine Glucose (UA) Negative (NEGATIVE) Negative (NEGATIVE) Urine Ketones 1+ (NEGATIVE) H Negative (NEGATIVE) Urine Blood 1+ (NEGATIVE) H Negative (NEGATIVE) Urine Nitrite Negative (NEGATIVE) Negative (NEGATIVE) Urine Bilirubin Negative (NEGATIVE) Negative (NEGATIVE) Urine Urobilinogen 1 MG/DL (0.0-1.0) H Normal MG/DL (0.0-1.0) Urine Leukocyte Esterase 1+ (NEGATIVE) H Negative (NEGATIVE) Urine RBC 0-2 /HPF (0 - 0) H 0 /HPF (0 - 0) Urine WBC 0-2 /HPF (0 - 0) 0-2 /HPF (0 - 0) Urine Squamous Epithelial Cells None /LPF (NONE/OCC) Occasional /LPF Urine Bacteria Occasional /HPF (NONE) Occasional /HPF (NONE) Sodium Level 126 MMOL/L (136-145) L Potassium Level 3.7 MMOL/L (3.5-5.1) Chloride Level 88 MMOL/L (98-107) L Carbon Dioxide Level 30 MMOL/L (21-32) Anion Gap 8 mmol/L (5-15) Blood Urea Nitrogen 13 mg/dL (7-18) Creatinine 1.4 MG/DL (0.55-1.30) H Estimat Glomerular Filtration Rate mL/min (>60) Glucose Level 223 MG/DL (74-106) H Lactic Acid Level 3.80 mmol/L (0.4-2.0) H 3.10 mmol/L (0.66-2.22) H Calcium Level 9.4 MG/DL (8.5-10.1) Phosphorus Level 3.1 MG/DL (2.5-4.9) Magnesium Level 1.1 MG/DL (1.8-2.4) L Total Bilirubin 1.1 MG/DL (0.2-1.0) H Direct Bilirubin 0.3 MG/DL (0.0-0.3) Aspartate Amino Transf (AST/SGOT) 25 U/L (15-37) Alanine Aminotransferase (ALT/SGPT) 42 U/L (12-78) Alkaline Phosphatase 83 U/L (46-116) Total Creatine Kinase 100 U/L (26-308) Creatine Kinase MB 1.7 NG/ML (0.0-3.6) Creatine Kinase MB Relative Index 1.7 Troponin I 0.001 ng/mL (0.000-0.056) C-Reactive Protein, Quantitative < 0.4 mg/dL (0.00-0.90) Pro-B-Type Natriuretic Peptide 82 pg/mL (0-125) Total Protein 8.2 G/DL (6.4-8.2) Albumin 3.8 G/DL (3.4-5.0) Globulin 4.4 g/dL Albumin/Globulin Ratio 0.9 (1.0-2.7) L Lipase 130 U/L (73-393) Osmolality 270 mOsm/kg (297-317) L Uric Acid 4.0 MG/DL (2.6-7.2) Thyroid Stimulating Hormone (TSH) 2.041 uiU/mL (0.358-3.740) Free Thyroxine 1.36 NG/DL (0.76-1.46) Free Triiodothyronine 1.9 pg/mL (2.3-4.2) L Cortisol Pending Urine Osmolality 282 mOsm/kg (429-449) L Urine Random Sodium 64 mmol/L (20-110) Test 06/13/18 06:29 White Blood Count Pending Red Blood Count Pending Hemoglobin Pending Hematocrit Pending Mean Corpuscular Volume Pending Mean Corpuscular Hemoglobin Pending Mean Corpuscular Hemoglobin Concent Pending Red Cell Distribution Width Pending Platelet Count Pending Mean Platelet Volume Pending Neutrophils (%) (Auto) Pending Lymphocytes (%) (Auto) Pending Monocytes (%) (Auto) Pending Eosinophils (%) (Auto) Pending Basophils (%) (Auto) Pending Sodium Level Pending Potassium Level Pending Chloride Level Pending Carbon Dioxide Level Pending Blood Urea Nitrogen Pending Creatinine Pending Estimat Glomerular Filtration Rate Pending Glucose Level Pending Uric Acid Pending Calcium Level Pending Phosphorus Level Pending Magnesium Level Pending Total Bilirubin Pending Aspartate Amino Transf (AST/SGOT) Pending Alanine Aminotransferase (ALT/SGPT) Pending Alkaline Phosphatase Pending Troponin I Pending Pro-B-Type Natriuretic Peptide Pending Total Protein Pending Albumin Pending Globulin Pending Triglycerides Level Pending Cholesterol Level Pending LDL Cholesterol Pending HDL Cholesterol Pending Cholesterol/HDL Ratio Pending Microbiology Date/Time Source Procedure Growth Status 06/12/18 15:20 Sputum Gram Stain - Final Resulted 06/12/18 15:20 Sputum Sputum Culture Pending Resulted 06/12/18 11:30 Nasal Nares Influenza Types A,B Antigen (CAROLYN) - Final Complete Height (Feet): 5 Height (Inches): 4.00 Weight (Pounds): 140 Medications Current Medications Medications (Trade) Dose Ordered Sig/Gertrudis Route PRN Reason Start Time Stop Time Status Last Admin Dose Admin Acetaminophen (Tylenol) 650 mg Q4H PRN ORAL fever 06/12/18 15:45 07/12/18 15:44 Al Hydroxide/Mg Hydroxide (Mylanta II) 30 ml Q6H PRN ORAL dyspepsia 06/12/18 15:45 07/12/18 15:44 Atorvastatin Calcium (Lipitor) 10 mg BEDTIME ORAL 06/12/18 21:00 07/12/18 20:59 Dextrose (Dextrose 50%) 25 ml Q30M PRN IV Hypoglycemia 06/12/18 15:45 07/12/18 15:44 Dextrose (Dextrose 50%) 50 ml Q30M PRN IV Hypoglycemia 06/12/18 15:45 07/12/18 15:44 Dorzolamide HCl (Trusopt) 1 drop TID BOTH EYES 06/12/18 18:00 07/12/18 17:59 06/12/18 18:17 Heparin Sodium (Porcine) (Heparin 5000 units/ml) 5,000 units EVERY 12 HOURS SUBQ 06/12/18 21:00 07/12/18 20:59 06/12/18 21:01 Insulin Aspart (NovoLOG) BEFORE MEALS AND HS SUBQ 06/12/18 16:30 07/12/18 16:29 06/12/18 16:30 Lorazepam (Ativan 2mg/ml 1ml) 0.5 mg Q4H PRN IV For Anxiety 06/12/18 15:45 06/19/18 15:44 Losartan Potassium (Cozaar) 50 mg DAILY ORAL 06/13/18 09:00 07/13/18 08:59 Morphine Sulfate (Morphine Sulfate) 1 mg Q4H PRN IVP For Pain 06/12/18 15:45 06/19/18 15:44 Ondansetron HCl (Zofran) 4 mg Q6H PRN IVP Nausea & Vomiting 06/12/18 15:45 07/12/18 15:44 Polyethylene Glycol (Miralax) 17 gm HSPRN PRN ORAL Constipation 06/12/18 15:45 07/12/18 15:44 Promethazine HCl/ Codeine (Phenergan with Codeine) 5 ml Q4H PRN ORAL For Cough 06/12/18 16:00 07/12/18 15:59 Tamsulosin HCl (Flomax) 0.4 mg BEDTIME ORAL 06/12/18 21:00 07/12/18 20:59 Zolpidem Tartrate (Ambien) 5 mg HSPRN PRN ORAL Insomnia 06/12/18 15:45 06/19/18 15:44 Assessment/Plan Assessment/Plan ASSESSMENT Acute hyponatremia Lactic acidosis Acute kidney injury Bronchitis Diabetes mellitus Hypertension Hypo Mg PLAN OF CARE telemetry floor labs this morning still pending gentle IVF with NS at 50 s/p 1 L NS prior hyponatremia workup initiated nephro eval pending CXR today O2 and pulmonary toilet prn, sputum cx if able antitussive prn monitor renal parameters and electrolytes, correct electrolytes as needed avoid nephrotoxic BS management with SSI, check hemoglobin A1c hold hydrochlorothiazide start ARB with holding parameters fall precautions PT eval and treatment tele negative, troponin negative prior ECHO with pEF and mod MR DVT prophylaxis supportive care case discussed and evaluated by supervising physician Diamante Jaimes NP Jun 13, 2018 08:01
[2018-06-13 08:17] LABS: ALANINE AMINOTRANSFERASE 36 U/L (12-78); ALBUMIN 3.2 G/DL (3.4-5.0); ALBUMIN/GLOBULIN RATIO 0.9 (1.0-2.7); ALKALINE PHOSPHATASE 69 U/L (46-116); ANION GAP 7 mmol/L (5-15); ASPARTATE AMINO TRANSFERASE 23 U/L (15-37); BLOOD UREA NITROGEN 14 mg/dL (7-18); CALCIUM 9.1 MG/DL (8.5-10.1); CARBON DIOXIDE 29 MMOL/L (21-32); CHLORIDE 93 MMOL/L (98-107); CHOLESTEROL 80 MG/DL (< 200); CREATININE 1.2 MG/DL (0.55-1.30); HDL CHOLESTEROL 39 MG/DL (40-60); POTASSIUM 3.5 MMOL/L (3.5-5.1); SODIUM 129 MMOL/L (136-145); TRIGLYCERIDES 56 MG/DL (30-150)
[2018-06-13 08:48] LABS: PHOSPHORUS 3.3 MG/DL (2.5-4.9)
[2018-06-13] MEDS: Dorzolamide 2% 10ml Btl BOTH EYES SCH ×3 (09:05→18:04)
[2018-06-13] MEDS: Losartan 50mg tab ORAL SCH (09:06)
[2018-06-13] MEDS: Heparin 5000 units/ml inj SUBQ SCH ×2 (09:07→21:25)
--- NOTE | 2018-06-13 10:16 | NUR ---
NURSE NOTES: @10:16: Called Dr. Metz on (office's number) and (for [facility]). Voicemail left for patient in on . Awaiting call back to give more information.
--- NOTE | 2018-06-13 10:32 | History and Physical Report ---
DATE OF ADMISSION: 06/12/2018 DATE AND TIME SEEN: 06/13/2018 at 8 a.m. CONSULTANTS: 1. Nita Jhaveri M.D. 2. Prasanna Gardner M.D. CHIEF COMPLAINT: Weakness, dizziness, lactic acidosis, and hyponatremia. BRIEF HISTORY: A 78-year-old male, who lives at home, presents with three days of increased weakness and some dizziness. No loss of consciousness. No nausea, vomiting, or diarrhea. The patient came to [place], diagnosed the above, lactic acidosis, coughing, and hyponatremia. Admitted to telemetry for further care. Currently, calm in bed. No complaint. No chest pain. No shortness of breath. No nausea, vomiting, or diarrhea. PAST MEDICAL HISTORY: Diabetes and hypertension. PAST SURGICAL HISTORY: Gallbladder. ALLERGIES: Denies. SOCIAL HISTORY: No smoking. No alcohol. No intravenous drug abuse. FAMILY HISTORY: Noncontributory. PHYSICAL EXAMINATION: GENERAL: Calm in bed, oriented x3, in no acute distress. VITAL SIGNS: Temperature is 98 degrees, pulse 72, respirations 17, and blood pressure 122/54. CARDIOVASCULAR: No murmurs. LUNGS: Distant and clear. ABDOMEN: Bowel sounds positive. Nontender. Nondistended. EXTREMITIES: No cyanosis or edema. NEUROLOGIC: The patient moves all extremities, slightly weak. LABORATORY AND DIAGNOSTIC DATA: Labs at this time show hemoglobin and hematocrit 13.9/40. Otherwise, CBC is normal. BMP shows sodium 129, chloride 93, and glucose 70. Troponin 0.011. Albumin 3.2. Otherwise, normal urinalysis show 1+ leukocyte esterase. MEDICATIONS: Include losartan, atorvastatin, tamsulosin, heparin, insulin, , morphine, zolpidem, and Zofran. ASSESSMENT: 1. Weakness. 2. Dizziness. 3. Lactic acidosis. 4. Cough. 5. Anemia. 6. Malnutrition. 7. Hyponatremia. 8. Diabetes. 9. Hypertension. PLAN: 1. PT and dietary evaluation. 2. CBC and BMP in the morning. 3. Resume home medications. 4. Blood pressure and blood sugar control. 5. Dietary followup. 6. Antibiotics per Infectious Disease. 7. We will add Cardiology, Neuro, and ID to follow. Ponce Espana D.O. DR: ARRON JOB#: [id number] CC:
[2018-06-13 12:00] VITALS: BP 119/56
--- NOTE | 2018-06-13 14:19 | NUR ---
PT eval completed. Patient is independent in all aspects of mobility. No loss of balance noted. Denies any dizziness. No f/u PT treatment recommended at this time.
[2018-06-13 16:00] VITALS: BP 133/65
[2018-06-13] MEDS ORDERED: NS 275ml ONE (16:30)
[2018-06-13] MEDS ORDERED: Tubing IV Secondary IV ONE (16:30)
[2018-06-13] MEDS: Promethazine/Codeine 5ml UD ORAL PRN (18:08)
[2018-06-13 20:00] VITALS: BP 132/64
[2018-06-13] MEDS: Tamsulosin 0.4mg cap ORAL SCH (21:24)
--- NOTE | 2018-06-13 23:20 | NUR ---
HAND-OFF: Report given to SANTO Sosa. Patient is sleeping in bed. Endorsed plan of care.
[2018-06-14] VITALS: BP 106/46
[2018-06-14 04:00] VITALS: BP 130/62
[2018-06-14] MEDS: NovoLOG Insulin Flexpen SUBQ SCH ×4 (06:32→21:30)
--- NOTE | 2018-06-14 06:50 | NUR ---
HAND-OFF: Report given to nurse Milagro.Pt. denies discomfof..
--- NOTE | 2018-06-14 07:10 | NUR ---
NURSE NOTES: Received report from SANTO Lima . Pt is resting in bed in semi-avendaño position a/o x 4. No signs and symptoms of acute distress at this time. Denies pain at present. Bed in lowest position with two side rails up, break engaged. Bed side table and bed alarm within reach. Will continue to monitor.
[2018-06-14 07:23] LABS: HEMOGLOBIN 14.8 G/DL (14.2-18.0); MEAN CORPUSCULAR VOLUME 90 FL (80-99); PLATELET COUNT 264 K/UL (150-450); RED BLOOD COUNT 4.76 M/UL (4.70-6.10); RED CELL DISTRIBUTION WIDTH 10.9 % (11.6-14.8); WHITE BLOOD COUNT 8.6 K/UL (4.8-10.8)
[2018-06-14 07:52] LABS: ANION GAP 9 mmol/L (5-15); BLOOD UREA NITROGEN 12 mg/dL (7-18); CALCIUM 9.4 MG/DL (8.5-10.1); CARBON DIOXIDE 29 MMOL/L (21-32); CHLORIDE 98 MMOL/L (98-107); CREATININE 1.3 MG/DL (0.55-1.30); POTASSIUM 3.6 MMOL/L (3.5-5.1); SODIUM 136 MMOL/L (136-145)
--- NOTE | 2018-06-14 07:59 | NUR ---
CASE MANAGEMENT:REVIEW 78 YR OLD MALE TO ER FROM HOME CC: DIZZINESS, HEADACHE AND PRODUCTIVE COUGH SI: HYPONATREMIA. DM. LACTIC ACIDOSIS 97.9 68 17 107/62 94% NA-126 GLUCOSE+223 LACTIC ACID+3.80 MAG-1.1 IS 500CC NS BOLUS X1 CXR BLOOD CX : TO TELEMETRY IS: IV MAG SULFATE Q1HRS X4 INTERQUAL CRITERIA MET
[2018-06-14 08:00] VITALS: BP 130/62
[2018-06-14] MEDS: Dorzolamide 2% 10ml Btl BOTH EYES SCH ×4 (09:06→23:15)
[2018-06-14] MEDS: Losartan 50mg tab ORAL SCH (09:07)
[2018-06-14] MEDS: Heparin 5000 units/ml inj SUBQ SCH ×2 (09:08→21:29)
[2018-06-14] MEDS: Promethazine/Codeine 5ml UD ORAL PRN (09:14)
[2018-06-14 12:00] VITALS: BP 139/63
--- NOTE | 2018-06-14 12:09 | General Progress Note ---
Assessment/Plan Problem List: (1) UTI (urinary tract infection) ICD Codes: N39.0 - Urinary tract infection, site not specified SNOMED: 03167342 (2) Positional vertigo ICD Codes: H81.10 - Benign paroxysmal vertigo, unspecified ear SNOMED: 961826639 (3) Diabetes ICD Codes: E11.9 - Type 2 diabetes mellitus without complications SNOMED: 09465842 (4) Hyponatremia ICD Codes: E87.1 - Hypo-osmolality and hyponatremia SNOMED: 48172546 (5) History of hypertension ICD Codes: Z86.79 - Personal history of other diseases of the circulatory system SNOMED: 978879020 (6) Lactic acidosis ICD Codes: E87.2 - Acidosis SNOMED: 34461910 Status: stable, progressing Assessment/Plan abx pt diet cardio neuro f/u cbc bmp am dc plan w hh Subjective Constitutional: Reports: weakness Allergies: Coded Allergies: No Known Allergies (Unverified , 03/15/17) All Systems: reviewed and negative except above Subjective sitting calm Objective Last 24 Hour Vital Signs Date Time Temp Pulse Resp B/P (MAP) Pulse Ox O2 Delivery O2 Flow Rate FiO2 06/14/18 09:07 130/62 06/14/18 09:00 Room Air 06/14/18 08:10 95 18 98 Room Air 06/14/18 08:05 94 18 98 Room Air 21 06/14/18 08:00 97.7 85 20 130/62 (84) 97 06/14/18 08:00 77 06/14/18 04:45 66 06/14/18 04:00 98.7 20 130/62 (84) 98 06/14/18 02:40 Room Air 21 06/14/18 02:40 Room Air 21 06/14/18 00:00 97.9 110 20 106/46 (66) 98 06/13/18 23:40 75 18 97 Room Air 21 06/13/18 23:30 75 18 97 Room Air 21 06/13/18 21:25 79 18 96 Room Air 21 06/13/18 21:20 79 18 96 Room Air 21 06/13/18 20:45 84 06/13/18 20:18 Room Air 06/13/18 20:00 98.0 74 21 132/64 (86) 99 06/13/18 16:00 97.9 70 22 133/65 (87) 97 06/13/18 15:48 64 06/13/18 15:23 77 16 97 Room Air 21 06/13/18 15:22 74 16 97 Room Air 21 Laboratory Tests 06/14/18 06:45: White Blood Count 8.6, Red Blood Count 4.76, Hemoglobin 14.8, Hematocrit 43.0, Mean Corpuscular Volume 90, Mean Corpuscular Hemoglobin 31.0, Mean Corpuscular Hemoglobin Concent 34.3, Red Cell Distribution Width 10.9L, Platelet Count 264, Mean Platelet Volume 5.9L, Neutrophils (%) (Auto) , Lymphocytes (%) (Auto) , Monocytes (%) (Auto) , Eosinophils (%) (Auto) , Basophils (%) (Auto) , Differential Total Cells Counted 100, Neutrophils % (Manual) 38L, Lymphocytes % (Manual) 54H, Monocytes % (Manual) 7, Eosinophils % (Manual) 1, Basophils % ( Manual) 0, Band Neutrophils 0, Platelet Estimate Adequate, Platelet Morphology Normal, Red Blood Cell Morphology Normal, Sodium Level 136, Potassium Level 3.6 , Chloride Level 98, Carbon Dioxide Level 29, Anion Gap 9, Blood Urea Nitrogen 12, Creatinine 1.3, Estimat Glomerular Filtration Rate , Glucose Level 138H, Lactic Acid Level 1.50, Calcium Level 9.4 Height (Feet): 5 Height (Inches): 4.00 Weight (Pounds): 140 General Appearance: lethargic EENT: normal ENT inspection Neck: normal alignment Cardiovascular: normal peripheral pulses, normal rate, regular rhythm Respiratory/Chest: chest wall non-tender, lungs clear, normal breath sounds Abdomen: normal bowel sounds, non tender Extremities: normal inspection Edema: no edema noted Arm (L), no edema noted Arm (R), no edema noted Leg (L), no edema noted Leg (R), no edema noted Pedal (L), no edema noted Pedal (R), no edema noted Generalized Neurologic: responsive, motor weakness Skin: normal pigmentation, warm/dry Ponce Espana DO Jun 14, 2018 12:09
--- NOTE | 2018-06-14 13:27 | Pulmonology Progress Note ---
Assessment/Plan Problems: (1) Acute bronchitis (2) Sepsis (3) Uncontrolled hypertension (4) Diabetes (5) Hyponatremia (6) History of hypertension (7) UTI (urinary tract infection) Assessment/Plan respiratory treatment check sputum f/u Ns NS f/u electrolytes symptomatic treatment dvt prophylaxis. med/surg Subjective ROS Limited/Unobtainable: No Respiratory: Reports: no symptoms Allergies: Coded Allergies: No Known Allergies (Unverified , 03/15/17) Objective Last 24 Hour Vital Signs Date Time Temp Pulse Resp B/P (MAP) Pulse Ox O2 Delivery O2 Flow Rate FiO2 06/14/18 09:07 130/62 06/14/18 09:00 Room Air 06/14/18 08:10 95 18 98 Room Air 21 06/14/18 08:05 94 18 98 Room Air 21 06/14/18 08:00 97.7 85 20 130/62 (84) 97 06/14/18 08:00 77 06/14/18 04:45 66 06/14/18 04:00 98.7 20 130/62 (84) 98 06/14/18 02:40 Room Air 21 06/14/18 02:40 Room Air 21 06/14/18 00:00 97.9 110 20 106/46 (66) 98 06/13/18 23:40 75 18 97 Room Air 21 06/13/18 23:30 75 18 97 Room Air 21 06/13/18 21:25 79 18 96 Room Air 21 06/13/18 21:20 79 18 96 Room Air 21 06/13/18 20:45 84 06/13/18 20:18 Room Air 06/13/18 20:00 98.0 74 21 132/64 (86) 99 06/13/18 16:00 97.9 70 22 133/65 (87) 97 06/13/18 15:48 64 06/13/18 15:23 77 16 97 Room Air 21 06/13/18 15:22 74 16 97 Room Air 21 General Appearance: WD/WN HEENT: normocephalic, atraumatic Respiratory/Chest: chest wall non-tender, crackles/rales Cardiovascular: normal peripheral pulses, normal rate Extremities: no cyanosis Skin: no rash Neurologic/Psychiatric: delivery mgr II-XII grossly normal Lymphatic: no neck adenopathy Musculoskeletal: normal muscle bulk Microbiology Date/Time Source Procedure Growth Status 3/9/19 11:30 Blood Blood Culture - Preliminary NO GROWTH AFTER 24 HOURS Resulted 06/12/18 11:30 Blood Blood Culture - Preliminary NO GROWTH AFTER 24 HOURS Resulted 06/12/18 15:20 Sputum Gram Stain - Final Complete 06/12/18 15:20 Sputum Sputum Culture - Final NORMAL UPPER RESPIRATORY SERENA PRESENT Complete 06/12/18 11:30 Nasal Nares Influenza Types A,B Antigen (CAROLYN) - Final Complete Laboratory Tests 06/14/18 06:45: White Blood Count 8.6, Red Blood Count 4.76, Hemoglobin 14.8, Hematocrit 43.0, Mean Corpuscular Volume 90, Mean Corpuscular Hemoglobin 31.0, Mean Corpuscular Hemoglobin Concent 34.3, Red Cell Distribution Width 10.9L, Platelet Count 264, Mean Platelet Volume 5.9L, Neutrophils (%) (Auto) , Lymphocytes (%) (Auto) , Monocytes (%) (Auto) , Eosinophils (%) (Auto) , Basophils (%) (Auto) , Differential Total Cells Counted 100, Neutrophils % (Manual) 38L, Lymphocytes % (Manual) 54H, Monocytes % (Manual) 7, Eosinophils % (Manual) 1, Basophils % ( Manual) 0, Band Neutrophils 0, Platelet Estimate Adequate, Platelet Morphology Normal, Red Blood Cell Morphology Normal, Sodium Level 136, Potassium Level 3.6 , Chloride Level 98, Carbon Dioxide Level 29, Anion Gap 9, Blood Urea Nitrogen 12, Creatinine 1.3, Estimat Glomerular Filtration Rate , Glucose Level 138H, Lactic Acid Level 1.50, Calcium Level 9.4 Current Medications Medications (Trade) Dose Ordered Sig/Gertrudis Route PRN Reason Start Time Stop Time Status Last Admin Dose Admin Acetaminophen (Tylenol) 650 mg Q4H PRN ORAL fever 06/12/18 15:45 07/12/18 15:44 Al Hydroxide/Mg Hydroxide (Mylanta II) 30 ml Q6H PRN ORAL dyspepsia 06/12/18 15:45 07/12/18 15:44 Atorvastatin Calcium (Lipitor) 10 mg BEDTIME ORAL 06/12/18 21:00 07/12/18 20:59 06/13/18 21:24 Dextrose (Dextrose 50%) 25 ml Q30M PRN IV Hypoglycemia 06/12/18 15:45 07/12/18 15:44 Dextrose (Dextrose 50%) 50 ml Q30M PRN IV Hypoglycemia 06/12/18 15:45 07/12/18 15:44 Dorzolamide HCl (Trusopt) 1 drop TID BOTH EYES 06/12/18 18:00 07/12/18 17:59 06/14/18 13:16 Heparin Sodium (Porcine) (Heparin 5000 units/ml) 5,000 units EVERY 12 HOURS SUBQ 06/12/18 21:00 07/12/18 20:59 06/14/18 09:08 Insulin Aspart (NovoLOG) BEFORE MEALS AND HS SUBQ 06/12/18 16:30 07/12/18 16:29 06/14/18 11:19 Lorazepam (Ativan 2mg/ml 1ml) 0.5 mg Q4H PRN IV For Anxiety 06/12/18 15:45 06/19/18 15:44 Losartan Potassium (Cozaar) 50 mg DAILY ORAL 06/13/18 09:00 07/13/18 08:59 06/14/18 09:07 Morphine Sulfate (Morphine Sulfate) 1 mg Q4H PRN IVP For Pain 06/12/18 15:45 06/19/18 15:44 Ondansetron HCl (Zofran) 4 mg Q6H PRN IVP Nausea & Vomiting 06/12/18 15:45 07/12/18 15:44 Polyethylene Glycol (Miralax) 17 gm HSPRN PRN ORAL Constipation 06/12/18 15:45 07/12/18 15:44 Promethazine HCl/ Codeine (Phenergan with Codeine) 5 ml Q4H PRN ORAL For Cough 06/12/18 16:00 07/12/18 15:59 06/14/18 09:14 Sodium Chloride 1,000 ml @ 50 mls/hr Q20H IV 06/13/18 10:22 07/13/18 10:21 06/14/18 06:33 Tamsulosin HCl (Flomax) 0.4 mg BEDTIME ORAL 06/12/18 21:00 07/12/18 20:59 06/13/18 21:24 Zolpidem Tartrate (Ambien) 5 mg HSPRN PRN ORAL Insomnia 06/12/18 15:45 06/19/18 15:44 Nita Jhaveri MD Jun 14, 2018 13:27
[2018-06-14] MEDS ORDERED: Promethazine/Codeine 5ml UD ORAL PRN (13:30)
--- NOTE | 2018-06-14 13:36 | Consultation ---
History of Present Illness General Date patient seen: Jun 14, 2018 Chief Complaint: Dizziness Referring physician: dr Espana Reason for Consultation: inpatient management Present Illness HPI 78 y/o M with hx of HTN, Dm2, s/p R eye cataract surgery, s/p cholecystectomy presents to ED on 06/12 with increased generalized weakness, lightheadedness, difficulty ambulating. +productive cough Denied abd pain, f/c, n/v/d Allergies: Coded Allergies: No Known Allergies (Unverified , 03/15/17) Medication History Scheduled Atorvastatin Calcium* (Atorvastatin Calcium*), 10 MG ORAL BEDTIME, (Reported) Atorvastatin Calcium* (Atorvastatin Calcium*), 10 MG ORAL BEDTIME, (Reported) Bimatoprost (Lumigan), 1 DROP BOTH EYES HS, (Reported) Dorzolamide Hcl* (Trusopt*), 1 DROP BOTH EYES TID, (Reported) Glipizide* (Glipizide*), 5 MG ORAL BIDAC, (Reported) Hydrochlorothiazide* (Hydrochlorothiazide*), 25 MG ORAL DAILY, (Reported) Losartan Potassium* (Losartan Potassium*), 50 MG ORAL DAILY, (Reported) Metformin Hcl (Metformin Hydrochloride), 500 GM MC EVERY 12 HOURS, (Reported) Metformin Hcl* (Metformin Hcl*), 1,000 MG ORAL BID, (Reported) Metformin Hcl* (Glucophage*), 500 MG ORAL TWICE A DAY, (Reported) Metoprolol Tartrate* (Metoprolol Tartrate*), 100 MG ORAL EVERY 12 HOURS, ( Reported) Simvastatin (Zocor), 20 MG ORAL BEDTIME, (Reported) Tamsulosin Hcl (Tamsulosin Hcl*), 0.4 MG ORAL BEDTIME, (Reported) Patient History Healthcare decision maker N Resuscitation status Full Code Advanced Directive on File Patient History Narrative Pmhx: as above Shx: No smoking. No alcohol. No intravenous drug abuse. Fhx: non contributory Review of Systems All Other Systems: negative except mentioned in HPI Physical Exam Physical Exam Narrative GENERAL: Calm in bed, oriented x3, in no acute distress.. CARDIOVASCULAR: No murmurs. LUNGS: Distant and clear. ABDOMEN: Bowel sounds positive. Nontender. Nondistended. EXTREMITIES: No cyanosis or edema. NEUROLOGIC: The patient moves all extremities, slightly weak. Last 24 Hour Vital Signs Date Time Temp Pulse Resp B/P (MAP) Pulse Ox O2 Delivery O2 Flow Rate FiO2 06/14/18 09:07 130/62 06/14/18 09:00 Room Air 06/14/18 08:10 95 18 98 Room Air 21 06/14/18 08:05 94 18 98 Room Air 21 06/14/18 08:00 97.7 85 20 130/62 (84) 97 06/14/18 08:00 77 06/14/18 04:45 66 06/14/18 04:00 98.7 20 130/62 (84) 98 06/14/18 02:40 Room Air 21 06/14/18 02:40 Room Air 21 06/14/18 00:00 97.9 110 20 106/46 (66) 98 06/13/18 23:40 75 18 97 Room Air 21 06/13/18 23:30 75 18 97 Room Air 21 06/13/18 21:25 79 18 96 Room Air 21 06/13/18 21:20 79 18 96 Room Air 21 06/13/18 20:45 84 06/13/18 20:18 Room Air 06/13/18 20:00 98.0 74 21 132/64 (86) 99 06/13/18 16:00 97.9 70 22 133/65 (87) 97 06/13/18 15:48 64 06/13/18 15:23 77 16 97 Room Air 21 06/13/18 15:22 74 16 97 Room Air 21 Laboratory Tests Test 06/14/18 06:45 White Blood Count 8.6 K/UL (4.8-10.8) Red Blood Count 4.76 M/UL (4.70-6.10) Hemoglobin 14.8 G/DL (14.2-18.0) Hematocrit 43.0 % (42.0-52.0) Mean Corpuscular Volume 90 FL (80-99) Mean Corpuscular Hemoglobin 31.0 PG (27.0-31.0) Mean Corpuscular Hemoglobin Concent 34.3 G/DL (32.0-36.0) Red Cell Distribution Width 10.9 % (11.6-14.8) L Platelet Count 264 K/UL (150-450) Mean Platelet Volume 5.9 FL (6.5-10.1) L Neutrophils (%) (Auto) % (45.0-75.0) Lymphocytes (%) (Auto) % (20.0-45.0) Monocytes (%) (Auto) % (1.0-10.0) Eosinophils (%) (Auto) % (0.0-3.0) Basophils (%) (Auto) % (0.0-2.0) Differential Total Cells Counted 100 Neutrophils % (Manual) 38 % (45-75) L Lymphocytes % (Manual) 54 % (20-45) H Monocytes % (Manual) 7 % (1-10) Eosinophils % (Manual) 1 % (0-3) Basophils % (Manual) 0 % (0-2) Band Neutrophils 0 % (0-8) Platelet Estimate Adequate Platelet Morphology Normal Red Blood Cell Morphology Normal Sodium Level 136 MMOL/L (136-145) Potassium Level 3.6 MMOL/L (3.5-5.1) Chloride Level 98 MMOL/L (98-107) Carbon Dioxide Level 29 MMOL/L (21-32) Anion Gap 9 mmol/L (5-15) Blood Urea Nitrogen 12 mg/dL (7-18) Creatinine 1.3 MG/DL (0.55-1.30) Estimat Glomerular Filtration Rate mL/min (>60) Glucose Level 138 MG/DL (74-106) H Lactic Acid Level 1.50 mmol/L (0.4-2.0) Calcium Level 9.4 MG/DL (8.5-10.1) Height (Feet): 5 Height (Inches): 4.00 Weight (Pounds): 140 Medications Current Medications Medications (Trade) Dose Ordered Sig/Gertrudis Route PRN Reason Start Time Stop Time Status Last Admin Dose Admin Acetaminophen (Tylenol) 650 mg Q4H PRN ORAL fever 06/12/18 15:45 07/12/18 15:44 Al Hydroxide/Mg Hydroxide (Mylanta II) 30 ml Q6H PRN ORAL dyspepsia 06/12/18 15:45 07/12/18 15:44 Atorvastatin Calcium (Lipitor) 10 mg BEDTIME ORAL 06/12/18 21:00 07/12/18 20:59 06/13/18 21:24 Dextrose (Dextrose 50%) 25 ml Q30M PRN IV Hypoglycemia 06/12/18 15:45 07/12/18 15:44 Dextrose (Dextrose 50%) 50 ml Q30M PRN IV Hypoglycemia 06/12/18 15:45 07/12/18 15:44 Dorzolamide HCl (Trusopt) 1 drop TID BOTH EYES 06/12/18 18:00 07/12/18 17:59 06/14/18 13:16 Heparin Sodium (Porcine) (Heparin 5000 units/ml) 5,000 units EVERY 12 HOURS SUBQ 06/12/18 21:00 07/12/18 20:59 06/14/18 09:08 Insulin Aspart (NovoLOG) BEFORE MEALS AND HS SUBQ 06/12/18 16:30 07/12/18 16:29 06/14/18 11:19 Lorazepam (Ativan 2mg/ml 1ml) 0.5 mg Q4H PRN IV For Anxiety 06/12/18 15:45 06/19/18 15:44 Losartan Potassium (Cozaar) 50 mg DAILY ORAL 06/13/18 09:00 07/13/18 08:59 06/14/18 09:07 Morphine Sulfate (Morphine Sulfate) 1 mg Q4H PRN IVP For Pain 06/12/18 15:45 06/19/18 15:44 Ondansetron HCl (Zofran) 4 mg Q6H PRN IVP Nausea & Vomiting 06/12/18 15:45 07/12/18 15:44 Polyethylene Glycol (Miralax) 17 gm HSPRN PRN ORAL Constipation 06/12/18 15:45 07/12/18 15:44 Promethazine HCl/ Codeine (Phenergan with Codeine) 5 ml Q4H PRN ORAL For Cough 06/12/18 16:00 07/12/18 15:59 06/14/18 09:14 Sodium Chloride 1,000 ml @ 50 mls/hr Q20H IV 06/13/18 10:22 07/13/18 10:21 06/14/18 06:33 Tamsulosin HCl (Flomax) 0.4 mg BEDTIME ORAL 06/12/18 21:00 07/12/18 20:59 06/13/18 21:24 Zolpidem Tartrate (Ambien) 5 mg HSPRN PRN ORAL Insomnia 06/12/18 15:45 06/19/18 15:44 Assessment/Plan Assessment/Plan Abx: Levaquin 06/14- Assessment: Acute bronchitis -CXR: no focal consolidation Afebrile NO leukocytosis -u/a neg -Bcx NTD -influenza sc neg VERA, improving Hyponatremia, SP Dehydration Generalized weakness Lactic acidosis, SP- likely due to dehydration HTN Dm2 s/p R eye cataract surgery s/p cholecystectomy Plan: -Continue Levaquin #1/ for acute bronchitis -f/u cx -Monitor CBC/CMP, temperatures Thank you for this consultation. Will continue to follow along with you. Discussed with SANTO. Helen Styles M.D. Jun 14, 2018 13:36
[2018-06-14 16:00] VITALS: BP 134/65
--- NOTE | 2018-06-14 19:20 | NUR ---
NURSE NOTES: Received report from Keon Humphrey RN. Pt is resting in the bed in RA w/o distress. NS 50 cc/H is ruinning at RAC 20G, asymptomatic. A&O x4, endorsed that pt is ambulatory with steady gait. MG 1.0 for 3/10 and 4 units of Mag. was given, NNO for Mag lab. Pt is waiting for the room at Med surg unit to be transferred. Call light and side table are w/in reach. Will follow plans of care.
--- NOTE | 2018-06-14 19:26 | NUR ---
HAND-OFF: Report given to SANTO Swain.
[2018-06-14 20:00] VITALS: BP 154/77
[2018-06-14] MEDS: Tamsulosin 0.4mg cap ORAL SCH (21:27)
--- NOTE | 2018-06-14 22:00 | NUR ---
TRANSFER TO FLOOR: Patient transferred to , RM 411-2, per Dr. Jhaveri w/o incident. Report given to Hayden Bowles RN. Tele monitor #10 was off and was returned to 2E station. Belongings and medications given to RN. Family and or S/O informed of transfer.
--- NOTE | 2018-06-14 23:05 | NUR ---
NURSE NOTES: Received patient transfer from tele unit, alert and oriented x4, ambulatory. Belongings checked. Instructed the use of call light. Call light and needs in reach. Bed in lowest position and lock engaged. Will continue to monitor.
[2018-06-14] MEDS ORDERED: LORazepam Inj 2mg/ml 1ml IV PRN (23:45)
[2018-06-14] MEDS ORDERED: Morphine Sulfate 2mg/ml Inj(IV/IM USE ONLY) IVP PRN (23:45)
[2018-06-15] VITALS (7 sets, daily range): BP systolic 122–142; BP diastolic 65–74
[2018-06-15] MEDS ORDERED: Promethazine/Codeine 5ml UD ORAL PRN (01:30)
[2018-06-15] MEDS ORDERED: Mylanta II UD 30ml ORAL PRN (03:45)
--- NOTE | 2018-06-15 06:06 | NUR ---
NURSE NOTES: Per patient, he will send his meds home. Family will visit him today. Patient verbalized understanding about the protocol of not keeping meds at bedside
[2018-06-15] MEDS: NovoLOG Insulin Flexpen SUBQ SCH ×4 (06:59→20:56)
[2018-06-15 07:21] LABS: ANION GAP 7 mmol/L (5-15); BLOOD UREA NITROGEN 11 mg/dL (7-18); CALCIUM 8.7 MG/DL (8.5-10.1); CARBON DIOXIDE 30 MMOL/L (21-32); CHLORIDE 104 MMOL/L (98-107); CREATININE 1.2 MG/DL (0.55-1.30); POTASSIUM 3.8 MMOL/L (3.5-5.1); SODIUM 141 MMOL/L (136-145)
[2018-06-15 07:25] LABS: BASOPHILS % (AUTO) 0.6 % (0.0-2.0); EOSINOPHILS % (AUTO) 3.1 % (0.0-3.0); HEMATOCRIT 37.2 % (42.0-52.0); HEMOGLOBIN 12.5 G/DL (14.2-18.0); MEAN CORPUSCULAR VOLUME 91 FL (80-99); NEUTROPHILS % (AUTO) 41.3 % (45.0-75.0); PLATELET COUNT 205 K/UL (150-450); RED CELL DISTRIBUTION WIDTH 11.2 % (11.6-14.8); WHITE BLOOD COUNT 6.8 K/UL (4.8-10.8)
--- NOTE | 2018-06-15 07:30 | NUR ---
NURSE NOTES: Received patient on bed awake. IV site intact adn patent. Bed in low and locked position, call light in reach. No signs of respiratory distress or pain. Room board updated, will continue to monitor.
--- NOTE | 2018-06-15 07:48 | NUR ---
HAND-OFF: Report given to SANTO Hernandez.
[2018-06-15] MEDS: Heparin 5000 units/ml inj SUBQ SCH ×2 (09:32→20:49)
[2018-06-15] MEDS: Losartan 50mg tab ORAL SCH (09:32)
[2018-06-15] MEDS: Dorzolamide 2% 10ml Btl BOTH EYES SCH ×4 (10:06→17:22)
--- NOTE | 2018-06-15 11:43 | Infectious Diseases Prog Note ---
Assessment/Plan Assessment/Plan Abx: Levaquin 06/14- Assessment: Acute bronchitis -CXR: no focal consolidation Afebrile NO leukocytosis -u/a neg -Bcx NTD -influenza sc neg VERA, improving Hyponatremia, SP Dehydration Generalized weakness Lactic acidosis, SP- likely due to dehydration HTN Dm2 s/p R eye cataract surgery s/p cholecystectomy Plan: -Continue Levaquin #2/5 for acute bronchitis (Switch to PO) -f/u cx -Monitor CBC/CMP, temperatures Thank you for this consultation. Will continue to follow along with you. Discussed with RN. Subjective Allergies: Coded Allergies: No Known Allergies (Unverified , 03/15/17) Subjective afebrile no leukocytosis at RA Objective Vital Signs Last 24 Hour Vital Signs Date Time Temp Pulse Resp B/P (MAP) Pulse Ox O2 Delivery O2 Flow Rate FiO2 06/15/18 10:55 89 18 98 Room Air 21 06/15/18 10:50 89 17 95 Room Air 21 06/15/18 09:32 130/67 06/15/18 09:00 Room Air 06/15/18 08:00 97.5 87 16 136/66 (89) 97 06/15/18 07:57 92 18 97 Room Air 21 06/15/18 07:52 91 17 96 Room Air 21 06/15/18 04:06 91 18 99 Room Air 21 06/15/18 04:01 89 18 98 Room Air 21 06/15/18 04:00 97.6 86 18 137/66 (89) 98 06/15/18 00:00 98.2 105 18 140/72 (94) 95 06/14/18 22:29 Room Air 21 06/14/18 22:29 Room Air 21 06/14/18 21:00 Room Air 06/14/18 20:00 76 06/14/18 20:00 97.9 104 20 154/77 (102) 91 06/14/18 19:00 Room Air 21 06/14/18 19:00 Room Air 21 06/14/18 16:00 85 06/14/18 16:00 97.7 84 20 134/65 (88) 98 06/14/18 15:30 88 18 97 Room Air 21 06/14/18 15:23 90 18 99 Room Air 21 06/14/18 12:00 72 06/14/18 12:00 98.2 80 20 139/63 (88) 98 06/14/18 11:45 88 18 98 Room Air 21 06/14/18 11:40 87 18 97 Room Air 21 Height (Feet): 5 Height (Inches): 4.00 Weight (Pounds): 140 Objective GENERAL: Calm in bed, oriented x3, in no acute distress.. CARDIOVASCULAR: No murmurs. LUNGS: Distant and clear. ABDOMEN: Bowel sounds positive. Nontender. Nondistended. EXTREMITIES: No cyanosis or edema. NEUROLOGIC: The patient moves all extremities, slightly weak. Microbiology Date/Time Source Procedure Growth Status 06/12/18 15:20 Sputum Gram Stain - Final Complete 06/12/18 15:20 Sputum Sputum Culture - Final NORMAL UPPER RESPIRATORY SERENA PRESENT Complete Laboratory Tests Test 06/15/18 05:30 White Blood Count 6.8 K/UL (4.8-10.8) Red Blood Count 4.10 M/UL (4.70-6.10) L Hemoglobin 12.5 G/DL (14.2-18.0) L Hematocrit 37.2 % (42.0-52.0) L Mean Corpuscular Volume 91 FL (80-99) Mean Corpuscular Hemoglobin 30.5 PG (27.0-31.0) Mean Corpuscular Hemoglobin Concent 33.6 G/DL (32.0-36.0) Red Cell Distribution Width 11.2 % (11.6-14.8) L Platelet Count 205 K/UL (150-450) Mean Platelet Volume 5.9 FL (6.5-10.1) L Neutrophils (%) (Auto) 41.3 % (45.0-75.0) L Lymphocytes (%) (Auto) 43.0 % (20.0-45.0) Monocytes (%) (Auto) 12.0 % (1.0-10.0) H Eosinophils (%) (Auto) 3.1 % (0.0-3.0) H Basophils (%) (Auto) 0.6 % (0.0-2.0) Sodium Level 141 MMOL/L (136-145) Potassium Level 3.8 MMOL/L (3.5-5.1) Chloride Level 104 MMOL/L (98-107) Carbon Dioxide Level 30 MMOL/L (21-32) Anion Gap 7 mmol/L (5-15) Blood Urea Nitrogen 11 mg/dL (7-18) Creatinine 1.2 MG/DL (0.55-1.30) Estimat Glomerular Filtration Rate mL/min (>60) Glucose Level 118 MG/DL (74-106) H Calcium Level 8.7 MG/DL (8.5-10.1) Current Medications Medications (Trade) Dose Ordered Sig/Gertrudis Route PRN Reason Start Time Stop Time Status Last Admin Dose Admin Acetaminophen (Tylenol) 650 mg Q4H PRN ORAL fever 06/14/18 23:45 07/12/18 15:44 Al Hydroxide/Mg Hydroxide (Mylanta II) 30 ml Q6H PRN ORAL dyspepsia 06/15/18 03:45 07/12/18 15:44 Atorvastatin Calcium (Lipitor) 10 mg BEDTIME ORAL 06/15/18 21:00 07/12/18 20:59 Dextrose (Dextrose 50%) 25 ml Q30M PRN IV Hypoglycemia 06/14/18 23:15 07/12/18 15:44 Dextrose (Dextrose 50%) 50 ml Q30M PRN IV Hypoglycemia 06/14/18 23:15 07/12/18 15:44 Dorzolamide HCl (Trusopt) 1 drop TID BOTH EYES 06/14/18 23:15 07/12/18 17:59 06/15/18 10:06 Heparin Sodium (Porcine) (Heparin 5000 units/ml) 5,000 units EVERY 12 HOURS SUBQ 06/15/18 09:00 07/12/18 20:59 06/15/18 09:32 Insulin Aspart (NovoLOG) BEFORE MEALS AND HS SUBQ 06/15/18 06:30 07/12/18 16:29 06/15/18 06:59 Levofloxacin 50 ml @ 50 mls/hr Q24H IVPB 06/15/18 14:00 06/21/18 13:59 Lorazepam (Ativan 2mg/ml 1ml) 0.5 mg Q4H PRN IV For Anxiety 06/14/18 23:45 06/19/18 15:44 Losartan Potassium (Cozaar) 50 mg DAILY ORAL 06/15/18 09:00 07/13/18 08:59 06/15/18 09:32 Morphine Sulfate (Morphine Sulfate) 1 mg Q4H PRN IVP For Pain 06/14/18 23:45 06/19/18 15:44 Ondansetron HCl (Zofran) 4 mg Q6H PRN IVP Nausea & Vomiting 06/15/18 03:45 07/12/18 15:44 Polyethylene Glycol (Miralax) 17 gm HSPRN PRN ORAL Constipation 06/15/18 15:45 07/12/18 15:44 Promethazine HCl/ Codeine (Phenergan with Codeine) 5 ml Q4H PRN ORAL For Cough 06/15/18 01:30 07/14/18 13:29 Sodium Chloride 1,000 ml @ 50 mls/hr Q20H IV 06/14/18 23:15 07/13/18 10:21 06/15/18 01:10 Tamsulosin HCl (Flomax) 0.4 mg BEDTIME ORAL 06/15/18 21:00 07/12/18 20:59 Zolpidem Tartrate (Ambien) 5 mg HSPRN PRN ORAL Insomnia 06/15/18 15:45 06/19/18 15:44 Helen Styles M.D. Jun 15, 2018 11:43
--- NOTE | 2018-06-15 12:49 | NUR ---
NURSE NOTES: Patient refused scheduled trusopt medication. He states he only takes it twice a day. patient was informed that the MD changed it to three times a day. Patient still refused.
[2018-06-15] MEDS ORDERED: Zolpidem 5mg tab ORAL PRN (15:45)
[2018-06-15] MEDS ORDERED: Miralax 17gm pkt ORAL PRN (15:45)
--- NOTE | 2018-06-15 15:53 | General Progress Note ---
Assessment/Plan Problem List: (1) UTI (urinary tract infection) ICD Codes: N39.0 - Urinary tract infection, site not specified SNOMED: 37921570 (2) Positional vertigo ICD Codes: H81.10 - Benign paroxysmal vertigo, unspecified ear SNOMED: 702905495 (3) Diabetes ICD Codes: E11.9 - Type 2 diabetes mellitus without complications SNOMED: 48573300 (4) Hyponatremia ICD Codes: E87.1 - Hypo-osmolality and hyponatremia SNOMED: 14251465 (5) History of hypertension ICD Codes: Z86.79 - Personal history of other diseases of the circulatory system SNOMED: 366191386 (6) Lactic acidosis ICD Codes: E87.2 - Acidosis SNOMED: 01699039 Assessment/Plan abx pt diet cardio neuro f/u dc if clear Subjective Constitutional: Reports: weakness Allergies: Coded Allergies: No Known Allergies (Unverified , 03/15/17) All Systems: reviewed and negative except above Subjective sitting calm Objective Last 24 Hour Vital Signs Date Time Temp Pulse Resp B/P (MAP) Pulse Ox O2 Delivery O2 Flow Rate FiO2 06/15/18 15:48 87 18 97 Room Air 21 06/15/18 15:43 86 19 94 Room Air 21 06/15/18 12:00 96.6 88 18 122/65 (84) 97 06/15/18 10:55 89 18 98 Room Air 21 06/15/18 10:50 89 17 95 Room Air 06/15/18 09:32 130/67 06/15/18 09:00 Room Air 06/15/18 08:00 97.5 87 16 136/66 (89) 97 06/15/18 07:57 92 18 97 Room Air 21 06/15/18 07:52 91 17 96 Room Air 21 06/15/18 04:06 91 18 99 Room Air 21 06/15/18 04:01 89 18 98 Room Air 21 06/15/18 04:00 97.6 86 18 137/66 (89) 98 06/15/18 00:00 98.2 105 18 140/72 (94) 95 06/14/18 22:29 Room Air 21 06/14/18 22:29 Room Air 21 06/14/18 21:00 Room Air 06/14/18 20:00 76 06/14/18 20:00 97.9 104 20 154/77 (102) 91 06/14/18 19:00 Room Air 21 06/14/18 19:00 Room Air 21 06/14/18 16:00 85 06/14/18 16:00 97.7 84 20 134/65 (88) 98 Intake and Output 06/14/18 06/15/18 18:59 06:59 Intake Total 540 ml 200 ml Balance 540 ml 200 ml Intake Oral 240 ml IV Total 200 ml Other 300 ml # Voids 3 Laboratory Tests 06/15/18 05:30: White Blood Count 6.8, Red Blood Count 4.10L, Hemoglobin 12.5L, Hematocrit 37.2L , Mean Corpuscular Volume 91, Mean Corpuscular Hemoglobin 30.5, Mean Corpuscular Hemoglobin Concent 33.6, Red Cell Distribution Width 11.2L, Platelet Count 205, Mean Platelet Volume 5.9L, Neutrophils (%) (Auto) 41.3L, Lymphocytes (%) (Auto) 43.0, Monocytes (%) (Auto) 12.0H, Eosinophils (%) (Auto) 3.1H, Basophils (%) (Auto) 0.6, Sodium Level 141, Potassium Level 3.8, Chloride Level 104, Carbon Dioxide Level 30, Anion Gap 7, Blood Urea Nitrogen 11, Creatinine 1.2, Estimat Glomerular Filtration Rate , Glucose Level 118H, Calcium Level 8.7 Height (Feet): 5 Height (Inches): 4.00 Weight (Pounds): 140 General Appearance: alert EENT: normal ENT inspection Neck: normal alignment Cardiovascular: normal peripheral pulses, normal rate, regular rhythm Respiratory/Chest: chest wall non-tender, lungs clear, normal breath sounds Abdomen: normal bowel sounds, non tender, soft Extremities: normal inspection Edema: no edema noted Arm (L), no edema noted Arm (R), no edema noted Leg (L), no edema noted Leg (R), no edema noted Pedal (L), no edema noted Pedal (R), no edema noted Generalized Neurologic: responsive, motor weakness Skin: normal pigmentation, warm/dry Ponce Espana DO Jun 15, 2018 15:52
--- NOTE | 2018-06-15 15:55 | Pulmonology Progress Note ---
Assessment/Plan Problems: (1) Acute bronchitis (2) Sepsis (3) Uncontrolled hypertension (4) Diabetes (5) Hyponatremia (6) History of hypertension (7) UTI (urinary tract infection) Assessment/Plan less coughrespiratory treatment check sputum dc iv fluids f/u electrolytes symptomatic treatment dvt prophylaxis. med/surg Subjective ROS Limited/Unobtainable: No Constitutional: Reports: no symptoms HEENT: Repors: no symptoms Allergies: Coded Allergies: No Known Allergies (Unverified , 03/15/17) Objective Last 24 Hour Vital Signs Date Time Temp Pulse Resp B/P (MAP) Pulse Ox O2 Delivery O2 Flow Rate FiO2 06/15/18 15:48 87 18 97 Room Air 21 06/15/18 15:43 86 19 94 Room Air 21 06/15/18 12:00 96.6 88 18 122/65 (84) 97 06/15/18 10:55 89 18 98 Room Air 21 06/15/18 10:50 89 17 95 Room Air 21 06/15/18 09:32 130/67 06/15/18 09:00 Room Air 06/15/18 08:00 97.5 87 16 136/66 (89) 97 06/15/18 07:57 92 18 97 Room Air 21 06/15/18 07:52 91 17 96 Room Air 21 06/15/18 04:06 91 18 99 Room Air 21 06/15/18 04:01 89 18 98 Room Air 21 06/15/18 04:00 97.6 86 18 137/66 (89) 98 06/15/18 00:00 98.2 105 18 140/72 (94) 95 06/14/18 22:29 Room Air 21 06/14/18 22:29 Room Air 21 06/14/18 21:00 Room Air 06/14/18 20:00 76 06/14/18 20:00 97.9 104 20 154/77 (102) 91 06/14/18 19:00 Room Air 21 06/14/18 19:00 Room Air 21 06/14/18 16:00 85 06/14/18 16:00 97.7 84 20 134/65 (88) 98 Intake and Output 06/14/18 06/15/18 19:00 07:00 Intake Total 540 ml 200 ml Balance 540 ml 200 ml Intake Oral 240 ml IV Total 200 ml Other 300 ml # Voids 3 General Appearance: cachetic HEENT: normocephalic, anicteric, mucous membranes moist Respiratory/Chest: chest wall non-tender, lungs clear Cardiovascular: normal peripheral pulses, normal rate Abdomen: normal bowel sounds Extremities: no cyanosis Skin: no rash Neurologic/Psychiatric: care support representative II-XII grossly normal Microbiology Date/Time Source Procedure Growth Status 06/14/18 19:30 Sputum Gram Stain - Final Resulted 06/14/18 19:30 Sputum Sputum Culture Pending Resulted Laboratory Tests 06/15/18 05:30: White Blood Count 6.8, Red Blood Count 4.10L, Hemoglobin 12.5L, Hematocrit 37.2L , Mean Corpuscular Volume 91, Mean Corpuscular Hemoglobin 30.5, Mean Corpuscular Hemoglobin Concent 33.6, Red Cell Distribution Width 11.2L, Platelet Count 205, Mean Platelet Volume 5.9L, Neutrophils (%) (Auto) 41.3L, Lymphocytes (%) (Auto) 43.0, Monocytes (%) (Auto) 12.0H, Eosinophils (%) (Auto) 3.1H, Basophils (%) (Auto) 0.6, Sodium Level 141, Potassium Level 3.8, Chloride Level 104, Carbon Dioxide Level 30, Anion Gap 7, Blood Urea Nitrogen 11, Creatinine 1.2, Estimat Glomerular Filtration Rate , Glucose Level 118H, Calcium Level 8.7 Current Medications Medications (Trade) Dose Ordered Sig/Gertrudis Route PRN Reason Start Time Stop Time Status Last Admin Dose Admin Acetaminophen (Tylenol) 650 mg Q4H PRN ORAL fever 06/14/18 23:45 07/12/18 15:44 Al Hydroxide/Mg Hydroxide (Mylanta II) 30 ml Q6H PRN ORAL dyspepsia 06/15/18 03:45 07/12/18 15:44 Atorvastatin Calcium (Lipitor) 10 mg BEDTIME ORAL 06/15/18 21:00 07/12/18 20:59 Dextrose (Dextrose 50%) 25 ml Q30M PRN IV Hypoglycemia 06/14/18 23:15 07/12/18 15:44 Dextrose (Dextrose 50%) 50 ml Q30M PRN IV Hypoglycemia 06/14/18 23:15 07/12/18 15:44 Dorzolamide HCl (Trusopt) 1 drop TID BOTH EYES 06/14/18 23:15 07/12/18 17:59 06/15/18 10:06 Heparin Sodium (Porcine) (Heparin 5000 units/ml) 5,000 units EVERY 12 HOURS SUBQ 06/15/18 09:00 07/12/18 20:59 06/15/18 09:32 Insulin Aspart (NovoLOG) BEFORE MEALS AND HS SUBQ 06/15/18 06:30 07/12/18 16:29 06/15/18 12:10 Levofloxacin (Levaquin) 250 mg Q24H ORAL 06/15/18 14:00 06/22/18 13:59 06/15/18 14:18 Lorazepam (Ativan 2mg/ml 1ml) 0.5 mg Q4H PRN IV For Anxiety 06/14/18 23:45 06/19/18 15:44 Losartan Potassium (Cozaar) 50 mg DAILY ORAL 06/15/18 09:00 07/13/18 08:59 06/15/18 09:32 Morphine Sulfate (Morphine Sulfate) 1 mg Q4H PRN IVP For Pain 06/14/18 23:45 06/19/18 15:44 Ondansetron HCl (Zofran) 4 mg Q6H PRN IVP Nausea & Vomiting 06/15/18 03:45 07/12/18 15:44 Polyethylene Glycol (Miralax) 17 gm HSPRN PRN ORAL Constipation 06/15/18 15:45 07/12/18 15:44 Promethazine HCl/ Codeine (Phenergan with Codeine) 5 ml Q4H PRN ORAL For Cough 06/15/18 01:30 07/14/18 13:29 Sodium Chloride 1,000 ml @ 50 mls/hr Q20H IV 06/14/18 23:15 07/13/18 10:21 06/15/18 01:10 Tamsulosin HCl (Flomax) 0.4 mg BEDTIME ORAL 06/15/18 21:00 07/12/18 20:59 Zolpidem Tartrate (Ambien) 5 mg HSPRN PRN ORAL Insomnia 06/15/18 15:45 06/19/18 15:44 Nita Jhaveri MD Jun 15, 2018 15:55
[2018-06-15] MEDS ORDERED: ACETAMINOPHEN325 M1 ORAL (17:59)
[2018-06-15] MEDS ORDERED: MYLANTA II30 ML ORAL (18:00)
[2018-06-15] MEDS ORDERED: PROMETHAZINE-C118 M1 ORAL (18:02)
[2018-06-15] MEDS ORDERED: NOVOLOG100 UNITS1 SUBQ (18:03)
[2018-06-15] MEDS ORDERED: LEVOFLOXACIN250 MG ORAL (18:04)
[2018-06-15] MEDS ORDERED: MIRALAX17 G2 ORAL (18:04)
[2018-06-15] MEDS ORDERED: AMBIEN5 MG ORAL (18:05)
--- NOTE | 2018-06-15 19:31 | NUR ---
HAND-OFF: Report given to SANTO Mcclain.
--- NOTE | 2018-06-15 19:34 | NUR ---
NURSE NOTES: Patient awake in bed, alert and oriented x4, not in respiratory distress. Instructed the use of call light. Call light and needs in reach. Bed in lowest position, lock engaged and alarm on. Will continue to monitor.
[2018-06-15] MEDS ORDERED: Tamsulosin 0.4mg cap ORAL SCH (21:00)
[2018-06-16 04:00] VITALS: BP 146/72
[2018-06-16] MEDS: NovoLOG Insulin Flexpen SUBQ SCH ×2 (06:02→12:26)
--- NOTE | 2018-06-16 07:08 | NUR ---
HAND-OFF: Report given to SANTO He.
--- NOTE | 2018-06-16 07:10 | NUR ---
NURSE NOTES: Received patient in bed, awake alert and oriented x4. Not in respiratory/cardiac distress. Denies any pain or discomfort. Patient is ambulatory. Bed is in lowest position and locked,Call light within reach. Will continue plan of care.
[2018-06-16 08:00] VITALS: BP 148/73
[2018-06-16] MEDS: Heparin 5000 units/ml inj SUBQ SCH (08:53)
[2018-06-16] MEDS: Losartan 50mg tab ORAL SCH (08:53)
[2018-06-16] MEDS: Dorzolamide 2% 10ml Btl BOTH EYES SCH ×2 (08:53→13:33)
--- NOTE | 2018-06-16 10:59 | NUR ---
RD ASSESSMENT & RECOMMENDATIONS SEE CARE ACTIVITY FOR COMPLETE ASSESSMENT DAILY ESTIMATED NEEDS: Needs based on DM 63.6kg 25-30 kcals/kg 5952-5014 total kcals 1-1.5 g protein/kg 64-95 g total protein 25-30 mL/kg 3515-6253 total fluid mLs NUTRITION DIAGNOSIS: Altered nutrition related lab values r/t diabetes, pre-DM, as evidenced by A1C 6.0, elev BG, elev POC (128-204). PO DIET RECOMMENDATIONS: [facility] ADDITIONAL RECOMMENDATIONS: 1) Obtain a standing scale wt 2) Monitor for continued good po intake 3) Check lytes daily, replete as needed
[2018-06-16 12:00] VITALS: BP 151/74
--- NOTE | 2018-06-16 13:16 | Pulmonology Progress Note ---
Assessment/Plan Problems: (1) Acute bronchitis (2) Sepsis (3) Uncontrolled hypertension (4) Diabetes (5) Hyponatremia (6) History of hypertension (7) UTI (urinary tract infection) Assessment/Plan less cough respiratory treatment check sputum dc iv fluids f/u electrolytes symptomatic treatment dvt prophylaxis. med/surg dc home Subjective ROS Limited/Unobtainable: No Constitutional: Reports: no symptoms HEENT: Repors: no symptoms Allergies: Coded Allergies: No Known Allergies (Unverified , 03/15/17) Objective Last 24 Hour Vital Signs Date Time Temp Pulse Resp B/P (MAP) Pulse Ox O2 Delivery O2 Flow Rate FiO2 06/16/18 10:57 83 18 99 Room Air 21 06/16/18 10:52 82 18 97 Room Air 21 06/16/18 09:00 Room Air 06/16/18 08:53 148/73 06/16/18 08:00 97.7 86 18 148/73 (98) 94 06/16/18 07:47 86 18 99 Room Air 21 06/16/18 07:42 85 17 97 Room Air 21 06/16/18 04:00 97.8 74 18 146/72 (96) 94 06/16/18 03:10 Room Air 21 06/16/18 03:10 Room Air 21 06/15/18 23:58 98.6 91 18 137/74 (95) 95 06/15/18 23:30 78 18 98 Room Air 21 06/15/18 23:30 77 18 98 Room Air 21 06/15/18 21:00 Room Air 06/15/18 21:00 98.0 86 17 142/71 (94) 99 06/15/18 20:27 84 18 98 Room Air 21 06/15/18 20:23 82 18 97 Room Air 21 06/15/18 16:00 98.1 88 18 124/68 (86) 99 06/15/18 15:48 87 18 97 Room Air 21 06/15/18 15:43 86 19 94 Room Air 21 Intake and Output 06/15/18 06/16/18 19:00 07:00 Intake Total 1550 ml 500 ml Balance 1550 ml 500 ml Intake Oral 1200 ml 500 ml IV Total 350 ml # Voids 5 4 General Appearance: WD/WN HEENT: normocephalic, atraumatic Respiratory/Chest: chest wall non-tender, lungs clear Cardiovascular: normal peripheral pulses, normal rate Abdomen: normal bowel sounds, soft, non tender Genitourinary: normal external genitalia Extremities: no cyanosis Skin: no rash Microbiology Date/Time Source Procedure Growth Status 06/14/18 19:30 Sputum Gram Stain - Final Resulted 06/14/18 19:30 Sputum Sputum Culture Pending Resulted Current Medications Medications (Trade) Dose Ordered Sig/Gertrudis Route PRN Reason Start Time Stop Time Status Last Admin Dose Admin Acetaminophen (Tylenol) 650 mg Q4H PRN ORAL fever 06/14/18 23:45 07/12/18 15:44 Al Hydroxide/Mg Hydroxide (Mylanta II) 30 ml Q6H PRN ORAL dyspepsia 06/15/18 03:45 07/12/18 15:44 Atorvastatin Calcium (Lipitor) 10 mg BEDTIME ORAL 06/15/18 21:00 07/12/18 20:59 06/15/18 20:48 Dextrose (Dextrose 50%) 25 ml Q30M PRN IV Hypoglycemia 06/14/18 23:15 07/12/18 15:44 Dextrose (Dextrose 50%) 50 ml Q30M PRN IV Hypoglycemia 06/14/18 23:15 07/12/18 15:44 Dorzolamide HCl (Trusopt) 1 drop TID BOTH EYES 06/14/18 23:15 07/12/18 17:59 06/16/18 08:53 Heparin Sodium (Porcine) (Heparin 5000 units/ml) 5,000 units EVERY 12 HOURS SUBQ 06/15/18 09:00 07/12/18 20:59 06/16/18 08:53 Insulin Aspart (NovoLOG) BEFORE MEALS AND HS SUBQ 06/15/18 06:30 07/12/18 16:29 06/16/18 12:26 Levofloxacin (Levaquin) 250 mg Q24H ORAL 06/15/18 14:00 06/22/18 13:59 06/15/18 14:18 Lorazepam (Ativan 2mg/ml 1ml) 0.5 mg Q4H PRN IV For Anxiety 06/14/18 23:45 06/19/18 15:44 Losartan Potassium (Cozaar) 50 mg DAILY ORAL 06/15/18 09:00 07/13/18 08:59 06/16/18 08:53 Morphine Sulfate (Morphine Sulfate) 1 mg Q4H PRN IVP For Pain 06/14/18 23:45 06/19/18 15:44 Ondansetron HCl (Zofran) 4 mg Q6H PRN IVP Nausea & Vomiting 06/15/18 03:45 07/12/18 15:44 Polyethylene Glycol (Miralax) 17 gm HSPRN PRN ORAL Constipation 06/15/18 15:45 07/12/18 15:44 Promethazine HCl/ Codeine (Phenergan with Codeine) 5 ml Q4H PRN ORAL For Cough 06/15/18 01:30 07/14/18 13:29 06/15/18 23:54 Tamsulosin HCl (Flomax) 0.4 mg BEDTIME ORAL 06/15/18 21:00 07/12/18 20:59 06/15/18 20:48 Zolpidem Tartrate (Ambien) 5 mg HSPRN PRN ORAL Insomnia 06/15/18 15:45 06/19/18 15:44 Nita Jhaveri MD Jun 16, 2018 13:16
[2018-06-16] MEDS ORDERED: LEVOFLOXACIN500 MG ORAL (13:20)
--- NOTE | 2018-06-16 14:30 | General Progress Note ---
Assessment/Plan Problem List: (1) UTI (urinary tract infection) ICD Codes: N39.0 - Urinary tract infection, site not specified SNOMED: 31490847 (2) Positional vertigo ICD Codes: H81.10 - Benign paroxysmal vertigo, unspecified ear SNOMED: 346880793 (3) Diabetes ICD Codes: E11.9 - Type 2 diabetes mellitus without complications SNOMED: 63767261 (4) Hyponatremia ICD Codes: E87.1 - Hypo-osmolality and hyponatremia SNOMED: 68881306 (5) History of hypertension ICD Codes: Z86.79 - Personal history of other diseases of the circulatory system SNOMED: 878172181 (6) Lactic acidosis ICD Codes: E87.2 - Acidosis SNOMED: 42360777 Status: stable, progressing Assessment/Plan abx pt diet cardio neuro f/u dc w hh if clear Subjective Constitutional: Reports: weakness Allergies: Coded Allergies: No Known Allergies (Unverified , 03/15/17) All Systems: reviewed and negative except above Subjective sitting calm wants to go home Objective Last 24 Hour Vital Signs Date Time Temp Pulse Resp B/P (MAP) Pulse Ox O2 Delivery O2 Flow Rate FiO2 06/16/18 12:00 97.9 83 18 151/74 (99) 98 06/16/18 10:57 83 18 99 Room Air 06/16/18 10:52 82 18 97 Room Air 06/16/18 09:00 Room Air 06/16/18 08:53 148/73 06/16/18 08:00 97.7 86 18 148/73 (98) 94 06/16/18 07:47 86 18 99 Room Air 06/16/18 07:42 85 17 97 Room Air 21 06/16/18 04:00 97.8 74 18 146/72 (96) 94 06/16/18 03:10 Room Air 21 06/16/18 03:10 Room Air 21 06/15/18 23:58 98.6 91 18 137/74 (95) 95 06/15/18 23:30 78 18 98 Room Air 21 06/15/18 23:30 77 18 98 Room Air 21 06/15/18 21:00 Room Air 06/15/18 21:00 98.0 86 17 142/71 (94) 99 06/15/18 20:27 84 18 98 Room Air 21 06/15/18 20:23 82 18 97 Room Air 21 06/15/18 16:00 98.1 88 18 124/68 (86) 99 06/15/18 15:48 87 18 97 Room Air 21 06/15/18 15:43 86 19 94 Room Air 21 Intake and Output 06/15/18 06/16/18 18:59 06:59 Intake Total 1550 ml 500 ml Balance 1550 ml 500 ml Intake Oral 1200 ml 500 ml IV Total 350 ml # Voids 5 4 Height (Feet): 5 Height (Inches): 4.00 Weight (Pounds): 140 General Appearance: alert EENT: normal ENT inspection Neck: normal alignment Cardiovascular: normal peripheral pulses, normal rate, regular rhythm Respiratory/Chest: chest wall non-tender, lungs clear, normal breath sounds Abdomen: normal bowel sounds, non tender, soft Extremities: normal inspection Edema: no edema noted Arm (L), no edema noted Arm (R), no edema noted Leg (L), no edema noted Leg (R), no edema noted Pedal (L), no edema noted Pedal (R), no edema noted Generalized Neurologic: responsive, motor weakness Skin: normal pigmentation, warm/dry Ponce Espana DO Jun 16, 2018 14:30
--- NOTE | 2018-06-16 15:20 | NUR ---
NURSE NOTES: Patient discharged to home accompanied by his daughter Adele via private car in stable condition. Prior to discharge, patient was seen by Dr. zuniga and Shakila. discharge instruction given to the patient and prescription given. He will fill the antibiotic from his choice of pharmacy. Skin intact and IV was removed and no s/s of infection on IV removal site. V/S stable. No s/s of hyper or hypoglycemia.Patient consent to release of medical records and daughter will follow up. Staff escorted patient.All belongings accounted for.
--- NOTE | 2018-06-16 15:41 | Infectious Diseases Prog Note ---
Assessment/Plan Assessment/Plan Abx: Levaquin 06/14- Assessment: Acute bronchitis -CXR: no focal consolidation Afebrile NO leukocytosis -u/a neg -Bcx NTD -influenza sc neg VERA, improving Hyponatremia, SP Dehydration Generalized weakness Lactic acidosis, SP- likely due to dehydration HTN Dm2 s/p R eye cataract surgery s/p cholecystectomy Plan: -Continue PO Levaquin #3/5 for acute bronchitis -f/u cx -Monitor CBC/CMP, temperatures Thank you for this consultation. Will continue to follow along with you. Discussed with RN. Subjective Allergies: Coded Allergies: No Known Allergies (Unverified , 03/15/17) Subjective afebrile no leukocytosis at RA Objective Vital Signs Last 24 Hour Vital Signs Date Time Temp Pulse Resp B/P (MAP) Pulse Ox O2 Delivery O2 Flow Rate FiO2 06/16/18 14:30 84 18 98 Room Air 21 06/16/18 14:25 84 18 96 Room Air 21 06/16/18 12:00 97.9 83 18 151/74 (99) 98 06/16/18 10:57 83 18 99 Room Air 21 06/16/18 10:52 82 18 97 Room Air 21 06/16/18 09:00 Room Air 06/16/18 08:53 148/73 06/16/18 08:00 97.7 86 18 148/73 (98) 94 06/16/18 07:47 86 18 99 Room Air 21 06/16/18 07:42 85 17 97 Room Air 21 06/16/18 04:00 97.8 74 18 146/72 (96) 94 06/16/18 03:10 Room Air 21 06/16/18 03:10 Room Air 21 06/15/18 23:58 98.6 91 18 137/74 (95) 95 06/15/18 23:30 78 18 98 Room Air 21 06/15/18 23:30 77 18 98 Room Air 21 06/15/18 21:00 Room Air 06/15/18 21:00 98.0 86 17 142/71 (94) 99 06/15/18 20:27 84 18 98 Room Air 21 06/15/18 20:23 82 18 97 Room Air 21 06/15/18 16:00 98.1 88 18 124/68 (86) 99 3/12/19 15:48 87 18 97 Room Air 21 06/15/18 15:43 86 19 94 Room Air 21 Height (Feet): 5 Height (Inches): 4.00 Weight (Pounds): 140 Objective GENERAL: Calm in bed, oriented x3, in no acute distress.. CARDIOVASCULAR: No murmurs. LUNGS: Distant and clear. ABDOMEN: Bowel sounds positive. Nontender. Nondistended. EXTREMITIES: No cyanosis or edema. NEUROLOGIC: The patient moves all extremities, slightly weak. Microbiology Date/Time Source Procedure Growth Status 06/14/18 19:30 Sputum Gram Stain - Final Resulted 06/14/18 19:30 Sputum Sputum Culture Pending Resulted Current Medications Medications (Trade) Dose Ordered Sig/Gertrudis Route PRN Reason Start Time Stop Time Status Last Admin Dose Admin Acetaminophen (Tylenol) 650 mg Q4H PRN ORAL fever 06/14/18 23:45 07/12/18 15:44 Al Hydroxide/Mg Hydroxide (Mylanta II) 30 ml Q6H PRN ORAL dyspepsia 06/15/18 03:45 07/12/18 15:44 Atorvastatin Calcium (Lipitor) 10 mg BEDTIME ORAL 06/15/18 21:00 07/12/18 20:59 06/15/18 20:48 Dextrose (Dextrose 50%) 25 ml Q30M PRN IV Hypoglycemia 06/14/18 23:15 07/12/18 15:44 Dextrose (Dextrose 50%) 50 ml Q30M PRN IV Hypoglycemia 06/14/18 23:15 07/12/18 15:44 Dorzolamide HCl (Trusopt) 1 drop TID BOTH EYES 06/14/18 23:15 07/12/18 17:59 06/16/18 13:33 Heparin Sodium (Porcine) (Heparin 5000 units/ml) 5,000 units EVERY 12 HOURS SUBQ 06/15/18 09:00 07/12/18 20:59 06/16/18 08:53 Insulin Aspart (NovoLOG) BEFORE MEALS AND HS SUBQ 06/15/18 06:30 07/12/18 16:29 06/16/18 12:26 Levofloxacin (Levaquin) 250 mg Q24H ORAL 06/15/18 14:00 06/22/18 13:59 06/16/18 13:33 Lorazepam (Ativan 2mg/ml 1ml) 0.5 mg Q4H PRN IV For Anxiety 06/14/18 23:45 06/19/18 15:44 Losartan Potassium (Cozaar) 50 mg DAILY ORAL 06/15/18 09:00 07/13/18 08:59 06/16/18 08:53 Morphine Sulfate (Morphine Sulfate) 1 mg Q4H PRN IVP For Pain 06/14/18 23:45 06/19/18 15:44 Ondansetron HCl (Zofran) 4 mg Q6H PRN IVP Nausea & Vomiting 06/15/18 03:45 07/12/18 15:44 Polyethylene Glycol (Miralax) 17 gm HSPRN PRN ORAL Constipation 06/15/18 15:45 07/12/18 15:44 Promethazine HCl/ Codeine (Phenergan with Codeine) 5 ml Q4H PRN ORAL For Cough 06/15/18 01:30 07/14/18 13:29 06/15/18 23:54 Tamsulosin HCl (Flomax) 0.4 mg BEDTIME ORAL 06/15/18 21:00 07/12/18 20:59 06/15/18 20:48 Zolpidem Tartrate (Ambien) 5 mg HSPRN PRN ORAL Insomnia 06/15/18 15:45 06/19/18 15:44 Helen Styles M.D. Jun 16, 2018 15:41
--- NOTE | 2018-06-17 09:33 | Cardiology Report ---
APPROVED REPORT EKG Measurement Heart [id number] Normal sinus rhythm Normal ECG
--- NOTE | 2018-06-17 12:19 | Discharge Summary ---
Discharge Summary Discharge Summary _ DATE OF ADMISSION: 06/12/2018 DATE OF DISCHARGE: 06/16/2018 DISCHARGED BY: Dr. Ponce Espana CONSULTANTS: Dr. Nita Styles BRIEF HOSPITAL COURSE: Patient is a 78-year-old male, with history of hypertension, diabetes, status post right eye cataract surgery, presented to the emergency department accompanied by family member due to increased generalized weakness. The patient reported lightheadedness and difficulty with ambulation. Patient was getting increasingly weak all over for the past week. He also had nonproductive cough and sore throat previously. Patient was unable to check blood sugar. He denied abdominal pain. Denied fever or chills. He had similar symptoms in the past when he had hyponatremia. Patient is on home diuretic. On evaluation at ED, vital signs were stable. Workup revealed no leukocytosis, hemoglobin and hematocrit were stable. Urinalysis showed 2+ protein, 1+ blood, 1+ leukocyte esterase and occasional bacteria. Sodium was 126, chloride 88. BUN was 13, creatinine 1.4. Magnesium 1.1. Troponin was negative. Cancer screen was negative. Lactic acid was elevated to 3.1. He was then admitted for evaluation of hyponatremia, lactic acidosis, cough, and diabetes. Patient was given IV hydration. Hydrochlorothiazide and metformin were placed on hold. He was placed on fall precaution. He was given PT eval and treatment. He was given respiratory treatment. Hyponatremia workup showed urinary sodium 64, osmolality 282. ID was consulted for evaluation of nonproductive cough. He was given Levaquin. Sputum culture showed normal respiratory jaden. TSH normal. Repeat lactic acid improved post hydration. Sodium level normalized. Patient had less cough. IV fluids were discontinued. He was discharged home. FINAL DIAGNOSES: Acute bronchitis Hyponatremia Acute kidney injury Dehydration Hypertension Type 2 diabetes mellitus Status post right eye cataract surgery Status post cholecystectomy Lactic acidosis, resolved Positional vertigo DISPOSITION: Patient was discharged home with home health. DISCHARGE MEDICATIONS: Refer to Discharge Medication List. DISCHARGE INSTRUCTIONS: Follow-up in a week. I have been assigned to complete a discharge summary on this account, I was not involved with the patient's management. Stacey Guerra NP Jun 17, 2018 12:19
== END 2018-06-16 15:30 | disposition home or self-care (01) | DRG 202 ==
LOC: EMR 11:32 → EDBEDREQ 14:25 → 2E 14:54 → 4E 06-14 22:00
DX: J20.9 Acute bronchitis, unspecified (principal); E87.1 Hypo-osmolality and hyponatremia; N17.9 Acute kidney failure, unspecified; E87.2 Acidosis; E11.9 Type 2 diabetes mellitus without complications; E86.0 Dehydration; I10 Essential (primary) hypertension; Z90.49 Acquired absence of other specified parts of digestive tract; Z98.41 Cataract extraction status, right eye; Z96.1 Presence of intraocular lens; H81.10 Benign paroxysmal vertigo, unspecified ear; E83.42 Hypomagnesemia
CPT/HCPCS: 36415; 71045; 80048; 80053; 80061; 81001; 81003; 82248; 82533; 82550; 82553; 82962; 83036; 83605; 83690; 83735; 83880; 83930; 83935; 84100; 84300; 84439; 84443; 84481; 84484; 84550; 85007; 85025; 86140; 86710; 87040; 87070; 87205; 93005; 99285; J1815